=== PATIENT | female | born 1935 | race Caucasian/White ===

== ENCOUNTER 2016-04-17 16:16 | Emergency (ER) | payer MEDICARE, OTHER ==
[~2016-04-17 16:16] MED LIST: CIPR-9 PO; ENAL20TA PO; HYDR25TA5 PO; MACR100C2 PO; SULI200T PO
[2016-04-17 16:20] VITALS: BP 173/81; PULSE 76; RESP 20; TEMP 97.6; O2SAT 96
== END 2016-04-17 17:45 | disposition left against medical advice (07) ==
LOC: NED 16:16
DX: Z53.21 Procedure and treatment not carried out due to patient leaving prior to being seen by health care provider (principal)
CPT/HCPCS: 99281

== ENCOUNTER 2016-04-19 09:14 | Emergency (ER) | payer MEDICARE, MEDICAID ==
[~2016-04-19] VITALS: Ht 157.5 cm; Wt 80.0 kg
[2016-04-19 09:26] VITALS: BP 144/77; PULSE 74; RESP 14; TEMP 98.9; O2SAT 98
--- NOTE | 2016-04-19 09:33 | PD ---
HPI Chief Complaint: Complaint Time Seen by Provider: 09:24 Travel History International Travel<30 days: No Contact w/Intl Traveler<30days: No Traveled to known affect area: No History of Present Illness HPI This is an 81-year-old female who has a history of recurrent urinary tract infections who presents to the emergency department with some dysuria, frequency and urgency, mild, intermittent for the past 2 days with no associated fevers or chills and she does report some intermittent back pain. Patient reports she is going for cataract surgery and wants to make sure she doesn't have a urinary tract infection prior to getting the procedure. PFSH Past Medical History Arthritis: Yes Asthma: No Autoimmune Disease: No Blood Disorders: No Anxiety: No Depression: No Heart Rhythm Problems: No Cancer: Yes (MELANOMA) Cardiac Catheterization: No Cardiovascular Problems: Yes High Cholesterol: No Chemotherapy: No Chest Pain: No Congestive Heart Failure: No COPD: No Cerebrovascular Accident: Yes (TIA X 3) Diabetes: No Diminished Hearing: No Endocrine: No Gastrointestinal Disorders: Yes GERD: Yes Glaucoma: No Genitourinary: Yes (UTI) Headaches: Yes Hepatitis: No Hiatal Hernia: No Hypertension: Yes Immune Disorder: No Implanted Vascular Access Dvce: No Kidney Stones: No Musculoskeletal: Yes (chronic back pain) Neurologic: Yes Psychiatric: No Reproductive: No Respiratory: Yes Immunizations Current: No Migraines: No Myocardial Infarction: No Radiation Therapy: No Renal Failure: No Seizures: No Sickle Cell Disease: No Sleep Apnea: No Thyroid Disease: No Ulcer: No PNEUMOCCOCAL Vaccine (Year): 2 Menopausal: Yes : 7 Para: 4 Tubal Ligation: Yes Past Surgical History Abdominal Surgery: Yes AICD: No Appendectomy: Yes Arteriovenous Shunt: No Cardiac Surgery: No Cholecystectomy: Yes Coronary Artery Bypass Graft: No Ear Surgery: No Endocrine Surgery: No Eye Surgery: No Gynecologic Surgery: Yes Insulin Pump: No Joint Replacement: No Neurologic Surgery: No Pacemaker: No Thoracic Surgery: No Tonsillectomy: Yes Other 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) Social History Alcohol Use: No Tobacco Use: No Substance Use: No Allergies-Medications (Allergen,Severity, Reaction): Coded Allergies: Sulfa (Verified Allergy, Severe, ITCHING, 02/22/16) Cephalexin (Verified Allergy, Unknown, rash, 02/22/16) Reported Meds & Prescriptions Reported Meds & Active Scripts Active Reported Enalapril (Enalapril Maleate) 20 Mg Tab 20 Mg PO DAILY Sulindac 200 Mg Tab 200 Mg PO BID Hydrochlorothiazide 25 Mg Tab 25 Mg PO DAILY Review of Systems Except as stated in HPI: all other systems reviewed are Neg Physical Exam Narrative GENERAL: Well-nourished, well-developed patient. SKIN: Warm and dry. HEAD: Normocephalic. EYES: No scleral icterus. No injection or drainage. NECK: Supple, trachea midline. CARDIOVASCULAR: Regular rate and rhythm without murmurs. RESPIRATORY: Breath sounds equal bilaterally. No accessory muscle use. GASTROINTESTINAL: Abdomen soft, non-tender, nondistended. MUSCULOSKELETAL: No cyanosis, or edema. Data Data Last Documented VS Vital Signs Date Time Temp Pulse Resp B/P Pulse Ox O2 Delivery O2 Flow Rate FiO2 04/19/16 09:26 98.9 74 14 144/77 98 Orders Urinalysis - C+S If Indicated (04/19/16 09:16) Labs Laboratory Tests Test 04/19/16 10:38 Urine Color YELLOW Urine Turbidity CLEAR Urine pH 5.5 Urine Specific [place] 1.019 Urine Protein NEG mg/dL Urine Glucose (UA) NEG mg/dL Urine Ketones NEG mg/dL Urine Occult Blood SMALL Urine Nitrite NEG Urine Bilirubin NEG Urine Urobilinogen LESS THAN 2.0 MG/DL Urine Leukocyte Esterase SMALL Urine RBC 6 /hpf Urine WBC 2 /hpf Urine Squamous Epithelial 2 /hpf Cells Urine Hyaline Casts 1 /lpf Urine Mucus FEW /lpf Microscopic Urinalysis Comment CULT NOT INDICATED MDM Medical Decision Making Medical Screen Exam Complete: Yes Emergency Medical Condition: Yes Interpretation(s) Afebrile, no tachycardia, mild hypertension Urinalysis: Some blood with no infection Differential Diagnosis Urinary tract infection, pyelonephritis, sepsis Narrative Course This is an 81-year-old female who presents to the emergency department with dysuria, frequency and urgency. She has some blood in her urine. She says in the past is been empirically treated for UTI when there is blood in her urine. I think this is reasonable given she is having symptoms. Patient will be discharged on Cipro. Diagnosis Primary Impression: Recurrent urinary tract infection Patient Instructions: General Instructions Additional Instructions: If you develop fever, persistent vomiting, back pain, or inability to eat return to the emergency department as your urine infection may have progressed to a kidney infection. Complete your antibiotics as prescribed. Stay well hydrated with Gatorade or water. Followup with your primary care physician in 2-3 days if your symptoms have not resolved. Med/Other Pt SpecificInfo: Prescription(s) given Scripts Ciprofloxacin 500 Mg [id number] Mg PO BID 7 Days Prov:Dilcia Hopson MD 04/19/16 Disposition: 01 DISCHARGE HOME Condition: Stable Dilcia Hopson MD Apr 19, 2016 09:33
[2016-04-19 11:03] LABS: BLOOD, URINE SMALL (NEG); COMMENT (UR) CULT NOT INDICATED; CULTURE IF INDICATED CULT NOT INDICATED; GLUCOSE,URINE NEG (NEG); HYALINE CAST, URINE 1 /lpf (RARE); KETONE, URINE NEG (NEG); MUCUS URINE FEW /lpf (OCC); NITRITE,URINE NEG (NEG); PH, URINE 5.5 (5.0-8.5); SQUAMOUS EPITHELIAL CELL URINE 2 /hpf (0-5); URINE COLOR YELLOW (YELLW/STRAW)
[2016-04-19] MEDS ORDERED: CIPR500T2 PO (11:17)
== END 2016-04-19 11:48 | disposition home or self-care (01) ==
LOC: NEPE 09:14
DX: N39.0 Urinary tract infection, site not specified (principal); G89.29 Other chronic pain; M54.9 Dorsalgia, unspecified; I10 Essential (primary) hypertension; Z87.440 Personal history of urinary (tract) infections
CPT/HCPCS: 81001; 99283

== ENCOUNTER 2016-05-14 10:57 | Emergency (ER) | payer MEDICARE, MEDICAID, OTHER ==
[~2016-05-14 10:57] MED LIST changes: -CIPR-9 PO; +CIPR500T2 PO; -MACR100C2 PO
[2016-05-14 10:59] VITALS: BP 153/73; PULSE 92; RESP 14; TEMP 97.6; O2SAT 92
--- NOTE | 2016-05-14 11:12 | PD ---
HPI Chief Complaint: Complaint Time Seen by Provider: 11:12 Travel History International Travel<30 days: No Contact w/Intl Traveler<30days: No Traveled to known affect area: No History of Present Illness HPI 81 year old female presents to the ED for evaluation of burning with urination. Pt states she gets frequent UTIs. She states she typically takes cipro and her symptoms go away. She has not followed up with urology and per her record seems to come her frequently with same symptoms. Burning, urgency, and frequency are her symptoms. No fever or chills. No nausea, vomiting, or diarrhea. No other symptoms to report. PFSH Past Medical History Arthritis: Yes Asthma: No Autoimmune Disease: No Blood Disorders: No Anxiety: No Depression: No Heart Rhythm Problems: No Cancer: Yes (MELANOMA) Cardiac Catheterization: No Cardiovascular Problems: Yes High Cholesterol: No Chemotherapy: No Chest Pain: No Congestive Heart Failure: No COPD: No Cerebrovascular Accident: Yes (TIA X 3) Diabetes: No Diminished Hearing: No Endocrine: No Gastrointestinal Disorders: Yes GERD: Yes Glaucoma: No Genitourinary: Yes (UTI) Headaches: Yes Hepatitis: No Hiatal Hernia: No Hypertension: Yes Immune Disorder: No Implanted Vascular Access Dvce: No Kidney Stones: No Musculoskeletal: Yes (chronic back pain) Neurologic: Yes Psychiatric: No Reproductive: No Respiratory: Yes Immunizations Current: No Migraines: No Myocardial Infarction: No Radiation Therapy: No Renal Failure: No Seizures: No Sickle Cell Disease: No Sleep Apnea: No Thyroid Disease: No Ulcer: No PNEUMOCCOCAL Vaccine (Year): 2 Menopausal: Yes : 7 Para: 4 Tubal Ligation: Yes Past Surgical History Abdominal Surgery: Yes AICD: No Appendectomy: Yes Arteriovenous Shunt: No Cardiac Surgery: No Cholecystectomy: Yes Coronary Artery Bypass Graft: No Ear Surgery: No Endocrine Surgery: No Eye Surgery: No Gynecologic Surgery: Yes Insulin Pump: No Joint Replacement: No Neurologic Surgery: No Pacemaker: No Thoracic Surgery: No Tonsillectomy: Yes Other 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) Social History Alcohol Use: No Tobacco Use: No Substance Use: No Allergies-Medications (Allergen,Severity, Reaction): Coded Allergies: Sulfa (Verified Allergy, Severe, ITCHING, 05/14/16) Cephalexin (Verified Allergy, Unknown, rash, 05/14/16) Reported Meds & Prescriptions Reported Meds & Active Scripts Active Cipro (Ciprofloxacin HCl) 500 Mg Tab 500 Mg PO BID 5 Days Reported Enalapril (Enalapril Maleate) 20 Mg Tab 20 Mg PO DAILY Sulindac 200 Mg Tab 200 Mg PO BID Hydrochlorothiazide 25 Mg Tab 25 Mg PO DAILY Review of Systems Except as stated in HPI: all other systems reviewed are Neg Physical Exam Narrative GENERAL: Well-nourished elderly female patient, ambulatory and in no acute distress SKIN: Warm and dry. HEAD: Atraumatic. Normocephalic. EYES: Pupils equal and round. No scleral icterus. No injection or drainage. ENT: No nasal bleeding or discharge. Mucous membranes pink and moist. NECK: Trachea midline. No JVD. CARDIOVASCULAR: Elevated rate and rhythm. No murmur appreciated. RESPIRATORY: No accessory muscle use. Clear to auscultation. Breath sounds equal bilaterally. GASTROINTESTINAL: Abdomen soft, non-tender, nondistended. Hepatic and splenic margins not palpable. MUSCULOSKELETAL: No obvious deformities. No clubbing. No cyanosis. No edema. NEUROLOGICAL: Awake and alert. No obvious cranial nerve deficits. Motor grossly within normal limits. Normal speech. PSYCHIATRIC: Appropriate mood and affect; insight and judgment normal. Data Data Last Documented VS Orders Urinalysis - C+S If Indicated (05/14/16 11:05) Urine Culture (05/14/16 11:10) Labs MDM Medical Decision Making Medical Screen Exam Complete: Yes Emergency Medical Condition: Yes Medical Record Reviewed: Yes Differential Diagnosis Recurrent cystitis versus vaginitis versus urethritis versus pyelonephritis versus atrophic vaginitis Narrative Course 81 year-old female presents to emergency department for evaluation of urinary symptoms consistent with recurrent cystitis. Urinalysis is hazy with small blood, large leukocyte esterase, 14 RBC, 6:30 WBC, moderate bacteria. This is improved from previous urinalysis. Patient is requesting Cipro specifically. I 'll place her on a short course of this and encouraged her to follow-up with urology. She agrees to return immediately to the emergency department with any acute worsening of symptoms. Diagnosis Primary Impression: UTI (urinary tract infection) Qualified Code: N30.01 - Acute cystitis with hematuria Referrals: Primary Care Physician Urologist Patient Instructions: General Instructions, Urinary Tract Infection in Women ( [place]) Additional Instructions: Maintain adequate oral hydration Follow-up with her primary care provider You may want to seek urology evaluation for recurrent UTIs Return immediately to the emergency department with any acute worsening of symptoms Med/Other Pt SpecificInfo: Prescription(s) given Scripts Ciprofloxacin (Cipro)500 Mg [id number] Mg PO BID 5 Days Ref 0 Prov:BrianLeela RUSH 05/14/16 Disposition: 01 DISCHARGE HOME Condition: Stable BrianLeela RUSH May 14, 2016 11:12 UTI (urinary tract infection) Qualified Code: N30.01 - Acute cystitis with hematuria Referrals: Primary Care Physician Urologist Patient Instructions: General Instructions, Urinary Tract Infection in Women ( [place]) Additional Instructions: Maintain adequate oral hydration Follow-up with her primary care provider You may want to seek urology evaluation for recurrent UTIs Return immediately to the emergency department with any acute worsening of symptoms Med/Other Pt SpecificInfo: Prescription(s) given Scripts Ciprofloxacin (Cipro)500 Mg [id number] Mg PO BID 5 Days Ref 0 Prov:TorresLeela RUSH 05/14/16 Disposition: 01 DISCHARGE HOME Condition: Stable Leela Torres May 14, 2016 11:12
[2016-05-14 11:32] LABS: BACTERIA, URINE MOD /hpf; BLOOD, URINE SMALL (NEG); GLUCOSE,URINE NEG (NEG); HYALINE CAST, URINE 1 /lpf (RARE); KETONE, URINE NEG (NEG); NITRITE,URINE NEG (NEG); PH, URINE 5.5 (5.0-8.5); SQUAMOUS EPITHELIAL CELL URINE 6 /hpf (0-5); TRANSITIONAL EPI CELLS, URINE 1 /hpf; URINE COLOR YELLOW (YELLW/STRAW)
[2016-05-14 11:34] LABS: COMMENT (UR) CULTURE INDICATED; CULTURE IF INDICATED CULTURE INDICATED
[2016-05-14] MEDS ORDERED: CIPR-9 PO (11:37)
== END 2016-05-14 12:03 | disposition home or self-care (01) ==
LOC: NETRI 10:57
DX: N39.0 Urinary tract infection, site not specified (principal); R39.15 Urgency of urination; I10 Essential (primary) hypertension
CPT/HCPCS: 81001; 87086; 99283

== ENCOUNTER 2016-05-30 09:11 | Emergency (ER) | payer MEDICARE, MEDICAID ==
[~2016-05-30] VITALS: Ht 157.5 cm; Wt 75.0 kg
[~2016-05-30 09:11] MED LIST changes: +CIPR-9 PO; -CIPR500T2 PO
[2016-05-30 09:13] VITALS: BP 159/85; PULSE 66; RESP 20; TEMP 97.7; O2SAT 93
[2016-05-30 10:40] LABS: BACTERIA, URINE OCC /hpf; BLOOD, URINE NEG (NEG); COMMENT (UR) CULT NOT INDICATED; CULTURE IF INDICATED CULT NOT INDICATED; GLUCOSE,URINE NEG (NEG); KETONE, URINE NEG (NEG); MUCUS URINE FEW /lpf (OCC); NITRITE,URINE NEG (NEG); PH, URINE 6.5 (5.0-8.5); SQUAMOUS EPITHELIAL CELL URINE 2 /hpf (0-5); URINE COLOR YELLOW (YELLW/STRAW)
[2016-05-30 11:50] VITALS: BP 143/78; PULSE 82; RESP 16; O2SAT 95
--- NOTE | 2016-05-30 12:07 | PD ---
HPI Chief Complaint: Complaint Time Seen by Provider: 12:01 Travel History International Travel<30 days: No Contact w/Intl Traveler<30days: No Traveled to known affect area: No History of Present Illness HPI Patient is a 81-year-old female with chief complaint of "I have another UTI." She states for one week she has had increased urinary urgency and frequency with intermittent incontinence. She denies hematuria, pyuria, vaginal bleeding or discharge. She has had some chills and very intermittent brief symptoms of nausea without emesis. She is fatigued. She denies fevers. She has chronic back pain and denies any acute worsening. She has had intermittent suprapubic discomfort which is minimal. She denies CVA or flank pain. She denies chest pain, shortness of breath, cough. Occasional loose stool without louise diarrhea or hematochezia. PFSH Past Medical History Arthritis: Yes Asthma: No Autoimmune Disease: No Blood Disorders: No Anxiety: No Depression: No Heart Rhythm Problems: No Cancer: Yes (MELANOMA) Cardiac Catheterization: No Cardiovascular Problems: Yes High Cholesterol: No Chemotherapy: No Chest Pain: No Congestive Heart Failure: No COPD: No Cerebrovascular Accident: Yes (TIA X 3) Diabetes: No Diminished Hearing: No Endocrine: No Gastrointestinal Disorders: Yes GERD: Yes Glaucoma: No Genitourinary: Yes (UTI) Headaches: Yes Hepatitis: No Hiatal Hernia: No Hypertension: Yes Immune Disorder: No Implanted Vascular Access Dvce: No Kidney Stones: No Musculoskeletal: Yes (chronic back pain) Neurologic: Yes Psychiatric: No Reproductive: No Respiratory: Yes Immunizations Current: No Migraines: No Myocardial Infarction: No Radiation Therapy: No Renal Failure: No Seizures: No Sickle Cell Disease: No Sleep Apnea: No Thyroid Disease: No Ulcer: No Tetanus Vaccination: > 5 Years PNEUMOCCOCAL Vaccine (Year): 2 Menopausal: Yes : 7 Para: 4 Tubal Ligation: Yes Past Surgical History Abdominal Surgery: Yes AICD: No Appendectomy: Yes Arteriovenous Shunt: No Cardiac Surgery: No Cholecystectomy: Yes Coronary Artery Bypass Graft: No Ear Surgery: No Endocrine Surgery: No Eye Surgery: No Gynecologic Surgery: Yes Insulin Pump: No Joint Replacement: No Neurologic Surgery: No Pacemaker: No Thoracic Surgery: No Tonsillectomy: Yes Other 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) Social History Alcohol Use: No Tobacco Use: No Substance Use: No Allergies-Medications (Allergen,Severity, Reaction): Coded Allergies: Sulfa (Verified Allergy, Severe, ITCHING, 05/30/16) Cephalexin (Verified Allergy, Unknown, rash, 05/30/16) Reported Meds & Prescriptions Reported Meds & Active Scripts Active Reported Enalapril (Enalapril Maleate) 20 Mg Tab 20 Mg PO DAILY Sulindac 200 Mg Tab 200 Mg PO BID Hydrochlorothiazide 25 Mg Tab 25 Mg PO DAILY Review of Systems Except as stated in HPI: all other systems reviewed are Neg Physical Exam Narrative GENERAL: Well-developed and well-nourished adult female in no acute distress. SKIN: Warm and dry. Good turgor without tenting. HEAD: Normocephalic. 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 EYES: PERRL bilaterally, 5mm. EOMI bilaterally. No injection or icterus present. No proptosis. Lids without edema or erythema. ENT: Buccal mucosa pink and moist. Oropharynx free of erythema, tonsillar hypertrophy, masses, swelling, asymmetry and exudates. Uvula midline and airway patent. NECK: Supple, no meningeal signs. Trachea midline, no JVD. No cervical or facial lymphadenopathy. CARDIOVASCULAR: Regular rate and rhythm without murmurs, rubs, clicks or gallops. Radial and posterior tibial pulses 2+ bilaterally. Trace bilateral pedal edema. RESPIRATORY: Clear to auscultation bilaterally with symmetrical rise and fall, no distress or use of accessory muscles. GASTROINTESTINAL: Non-tender, non-distended. Normal bowel sounds all 4 quadrants. No masses or organomegaly present. MUSCULOSKELETAL: Patient freely moving all four extremities spontaneously. Extremities without clubbing, cyanosis, or edema. No obvious deformities. NEUROLOGIC: CN II-XII grossly intact. Awake and alert. Motor grossly within normal limits. Normal speech. PSYCHIATRIC: Appropriate mood and affect; insight and judgment normal. Data Data Last Documented VS Vital Signs Date Time Temp Pulse Resp B/P Pulse Ox O2 Delivery O2 Flow Rate FiO2 05/30/16 11:50 82 16 143/78 95 05/30/16 09:13 97.7 Room Air Orders Urinalysis - C+S If Indicated (05/30/16 09:32) Labs Laboratory Tests Test 05/30/16 09:46 Urine Color YELLOW Urine Turbidity CLEAR Urine pH 6.5 Urine Specific [place] 1.012 Urine Protein NEG mg/dL Urine Glucose (UA) NEG mg/dL Urine Ketones NEG mg/dL Urine Occult Blood NEG Urine Nitrite NEG Urine Bilirubin NEG Urine Urobilinogen LESS THAN 2.0 MG/DL Urine Leukocyte Esterase SMALL Urine RBC 2 /hpf Urine WBC 3 /hpf Urine Squamous Epithelial 2 /hpf Cells Urine Bacteria OCC /hpf Urine Mucus FEW /lpf Microscopic Urinalysis Comment CULT NOT INDICATED MDM Medical Decision Making Medical Screen Exam Complete: Yes Emergency Medical Condition: Yes Differential Diagnosis Cystitis versus UTI versus pyelonephritis versus vaginitis versus overactive bladder versus occult infection versus diverticulitis Narrative Course Patient is a 81-year-old female presenting with urinary urgency for one week. This is her third visit for a presumptive UTI in the last 6 weeks. At initial visit urine was not overly convincing of UTI however she was given Cipro. She returned several weeks later with an additional UTI she believes and urinalysis at that time was suggestive of infection. She was given another prescription for Cipro. Culture had no growth. After both rounds of Cipro she does report symptoms resolving. She is afebrile and nontoxic-appearing. Urinalysis performed in triage and shows small esterase, occasional bacteria, 2 squamous epithelial cells, 2 rbc's and 3 wbc's. Not indicated for culture. At this time I recommended the patient additional workup as she has presented 3 times with presumptive UTI with no positive cultures and UA today is not strongly suggestive of UTI. Given that her symptoms mostly are increased urgency and occasional incontinence this could be direct marketing representative of overactive bladder and we would be treating inappropriately and causing potential harm with overuse of antibiotics. I discussed this with the patient for 5 minutes and was unable to convince her that without clear signs of a UTI and a urinalysis that is not strongly suggestive of UTI but I do not believe just simply from her an antibiotic to be an appropriate treatment at this time. The patient made it clear that that was all she wished to have, preferably Cipro. The patient declined any additional workup and will follow-up with her PCP Dr. Fritz. I suggested to the patient that I would recommend following up with him today if that is her choice to leave AMA and she did sign the paperwork. I explained to the patient that failure to undergo workup for her intermittent nausea and chills the result and permanent disability and and she is not sure understanding. She is capable of making this decision. I further recommended that she asked for a referral to a urologist for further evaluation. Diagnosis Primary Impression: Urinary urgency Additional Impression: Left against medical advice Condition: Stable Raffy Fry III May 30, 2016 12:07
== END 2016-05-30 12:09 | disposition left against medical advice (07) ==
LOC: NETRI 09:11
DX: R39.15 Urgency of urination (principal)
CPT/HCPCS: 81001; 99283

== ENCOUNTER 2016-06-11 06:02 | Emergency (ER) | payer MEDICARE, MEDICAID ==
[~2016-06-11] VITALS: Ht 157.5 cm; Wt 87.7 kg
[~2016-06-11 06:02] MED LIST changes: -CIPR-9 PO
[2016-06-11 06:07] VITALS: BP 164/88; PULSE 64; RESP 16; TEMP 97.5; O2SAT 95
--- NOTE | 2016-06-11 06:45 | PD ---
HPI Chief Complaint: Complaint Time Seen by Provider: 06:20 Travel History International Travel<30 days: No Contact w/Intl Traveler<30days: No Traveled to known affect area: No History of Present Illness HPI The patient is an 81 year old female who presents to the [facility] emergency department with a history of dysuria with urinary frequency and urgency that began approximately a week ago. She reports that she's had associated generalized weakness and nausea. She reports that she's had loose stools one time per day. She denies having any blood in her stool or black or tarry stools. She reports that she has had increased fatigue. She reports having chills but no fever. The patient reports that she is concerned that she has a urinary tract infection as her symptoms are similar to prior urinary tract infections. She reports that she has a frequent history of them. She reports that was the only medications that she tolerates well for UTI is Cipro. The patient denies any recent cough or congestion, neck pain, chest pain, shortness of breath, abdominal pain, vomiting, diarrhea, or neurologic symptoms. 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 Arthritis: Yes Asthma: No Autoimmune Disease: No Blood Disorders: No Anxiety: No Depression: No Heart Rhythm Problems: No Cancer: Yes (MELANOMA) Cardiac Catheterization: No Cardiovascular Problems: Yes (HTN) High Cholesterol: No Chemotherapy: No Chest Pain: No Congestive Heart Failure: No COPD: No Cerebrovascular Accident: Yes Diabetes: No Diminished Hearing: No Endocrine: No Gastrointestinal Disorders: Yes GERD: Yes Glaucoma: No Genitourinary: Yes (UTI) Headaches: Yes Hepatitis: No Hiatal Hernia: No Hypertension: Yes Immune Disorder: No Implanted Vascular Access Dvce: No Kidney Stones: No Musculoskeletal: Yes (chronic back pain) Neurologic: Yes Psychiatric: No Reproductive: No Respiratory: Yes Immunizations Current: No Migraines: No Myocardial Infarction: No Radiation Therapy: No Renal Failure: No Seizures: No Sickle Cell Disease: No Sleep Apnea: No Thyroid Disease: No Ulcer: No PNEUMOCCOCAL Vaccine (Year): 2 ?: Not Menopausal: Yes : 7 Para: 4 Tubal Ligation: Yes Past Surgical History Narrative Surgical The patient's past surgical history is significant for an appendectomy, bilateral tubal ligation, left jaw surgery related to osteomyelitis, cholecystectomy, tonsillectomy. Abdominal Surgery: Yes AICD: No Appendectomy: Yes Arteriovenous Shunt: No Cardiac Surgery: No Cholecystectomy: Yes Coronary Artery Bypass Graft: No Ear Surgery: No Endocrine Surgery: No Eye Surgery: No Gynecologic Surgery: Yes Insulin Pump: No Joint Replacement: No Neurologic Surgery: No Pacemaker: No Thoracic Surgery: No Tonsillectomy: Yes Other 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) Social History Alcohol Use: No Tobacco Use: No Substance Use: No Allergies-Medications (Allergen,Severity, Reaction): Coded Allergies: Sulfa (Verified Allergy, Severe, ITCHING, 06/11/16) Cephalexin (Verified Allergy, Unknown, rash, 06/11/16) Reported Meds & Prescriptions Reported Meds & Active Scripts Active Reported Enalapril (Enalapril Maleate) 20 Mg Tab 20 Mg PO DAILY Sulindac 200 Mg Tab 200 Mg PO BID Hydrochlorothiazide 25 Mg Tab 25 Mg PO DAILY Review of Systems Except as stated in HPI: all other systems reviewed are Neg General / Constitutional: Positive: Chills, No: Fever Eyes: No: Visual changes HENT: No: Headaches Cardiovascular: No: Chest Pain or Discomfort Respiratory: No: Shortness of Breath Gastrointestinal: Positive: Nausea, Changes in Bowel Habits (one loose stool per day), No: Vomiting, Diarrhea, Abdominal Pain, Indigestion, Loss of Appetite Genitourinary: Positive: Urgency, Frequency, Dysuria, No: Flank Pain Musculoskeletal: Positive: Myalgias, No: Pain Skin: No Rash Neurologic: Positive: Weakness (generalized weakness), No: Focal Abnormalities , Coordination Problem, Change in Mentation, Slurred Speech, Sensory Disturbance Psychiatric: No: Depression Endocrine: No: Polydipsia Hematologic/Lymphatic: No: Easy Bruising Physical Exam Narrative General: The patient is a well-developed well-nourished female in no acute distress. Head and Neck exam: Head is normocephalic atraumatic. Eyes: Pupils are equal round and reactive to light. Nose: Midline septum with pink mucous membranes Mouth: Dentition unremarkable. Moist mucus membranes. Posterior oropharynx is not erythematous. No tonsillar hypertrophy. Uvula midline. Airway patent. Neck: No palpable lymphadenopathy. No nuchal rigidity. No thyromegaly. Cardiovascular: Regular rate and rhythm without murmurs, gallops, or rubs. Lungs: Clear to auscultation bilaterally. No wheezes, rhonchi, or rales. Abdomen: Soft, without tenderness to palpation in all 4 quadrants of the abdomen. No guarding, rebound, or rigidity. Normal bowel sounds are audible. Extremities: No clubbing, cyanosis, or edema. No calf tenderness on palpation. Back: No spinous process tenderness to palpation. No costovertebral angle tenderness to palpation. Neurologic Exam: Grossly nonfocal. Skin Exam: No rash noted. Intact skin that is warm and dry. Data Data Last Documented VS Vital Signs Date Time Temp Pulse Resp B/P Pulse Ox O2 Delivery O2 Flow Rate FiO2 06/11/16 06:18 18 06/11/16 06:07 97.5 64 164/88 95 Room Air Orders Urinalysis - C+S If Indicated (06/11/16 06:22) MDM Medical Decision Making Medical Screen Exam Complete: Yes Emergency Medical Condition: Yes Medical Record Reviewed: Yes Differential Diagnosis Cystitis, versus pyelonephritis, versus viral syndrome Narrative Course During the course of the patients emergency department visit, the patients history, examination, and differential diagnosis were reviewed with the patient. The patient refused to get in a gown for examination. She reports that she does not want any blood work done at this time. She is only concerned that she may have a urinary tract infection as she has had infrequently in the past. The patient had a urine sent for analysis. The patients urinalysis is pending result. The patient's case was checked out to the oncoming emergency physician to disposition based on the conclusion of her urinalysis results. Diagnosis Primary Impression: Urinary frequency Araceli Aragon MD Jun 11, 2016 06:45 discharge instructions. The patient expressed understanding and was agreeable with this plan. Araceli Aragon MD Jun 11, 2016 06:45
[2016-06-11 07:58] LABS: BACTERIA, URINE RARE /hpf; BLOOD, URINE TRACE (NEG); COMMENT (UR) CULT NOT INDICATED; CULTURE IF INDICATED CULT NOT INDICATED; GLUCOSE,URINE NEG (NEG); KETONE, URINE NEG (NEG); NITRITE,URINE NEG (NEG); SQUAMOUS EPITHELIAL CELL URINE 2 /hpf (0-5); URINE COLOR YELLOW (YELLW/STRAW)
--- NOTE | 2016-06-11 08:06 | PD ---
Data Data Last Documented VS Vital Signs Date Time Temp Pulse Resp B/P Pulse Ox O2 Delivery O2 Flow Rate FiO2 06/11/16 06:18 18 06/11/16 06:07 97.5 64 164/88 95 Room Air Orders Urinalysis - C+S If Indicated (06/11/16 06:22) Urine Culture (06/11/16 08:02) Labs Laboratory Tests Test 06/11/16 07:30 Urine Color YELLOW Urine Turbidity CLEAR Urine pH 6.0 Urine Specific [place] 1.013 Urine Protein NEG mg/dL Urine Glucose (UA) NEG mg/dL Urine Ketones NEG mg/dL Urine Occult Blood TRACE Urine Nitrite NEG Urine Bilirubin NEG Urine Urobilinogen LESS THAN 2.0 MG/DL Urine Leukocyte Esterase MOD Urine RBC 3 /hpf Urine WBC 3 /hpf Urine Squamous Epithelial 2 /hpf Cells Urine Bacteria RARE /hpf Microscopic Urinalysis Comment CULT NOT INDICATED MDM Supervised Visit with GARRY: No Narrative Course C1-year-old woman who presents to the emergency department with UTI symptoms. Refusing any other evaluation. History of frequent UTIs in the past. Urinalysis does not show any pyuria or bacteriuria, or hematuria. Given her suggestive symptoms, urine culture was sent as well. We'll recommend treatment if positive, otherwise different antibiotics. Diagnosis Primary Impression: Urinary frequency Additional Instruction: Follow-up with your primary doctor. Return to the emergency department for any new or worsening symptoms. If urine culture shows any infection, we will contact you and call in a prescription for antibiotics. Med/Other Pt SpecificInfo: No Change to Meds Disposition: 01 DISCHARGE HOME Condition: Stable Levi Sanderson MD Jun 11, 2016 08:06
== END 2016-06-11 08:44 | disposition home or self-care (01) ==
LOC: NEPC 06:02
DX: R35.0 Frequency of micturition (principal)
CPT/HCPCS: 81001; 87086; 99284

== ENCOUNTER 2016-06-19 06:29 | Emergency (ER) | payer MEDICARE, MEDICAID ==
[~2016-06-19] VITALS: Ht 160 cm; Wt 88.0 kg
[2016-06-19 06:32] VITALS: BP 156/80; PULSE 70; RESP 18; TEMP 97.5; O2SAT 95
--- NOTE | 2016-06-19 07:11 | PD ---
HPI Chief Complaint: Complaint Time Seen by Provider: 07:11 Travel History International Travel<30 days: No Contact w/Intl Traveler<30days: No Traveled to known affect area: No History of Present Illness HPI 81-year-old female came to the emergency room with history of UTI symptoms. She says her lower back is hurting and she feels more tired and this is exactly how she feels when she gets UTI. Patient has been in the emergency room multiple times in the past with UTI and insist on getting ciprofloxacin for it. Says that the medication that works. One time she had Macrobid and it did not do anything. She went to see her primary care 2 days ago but she did not have symptoms at that time. Her primary care refused history of antibiotic over the phone. Vital signs are stable. Patient is answering questions appropriately. [facility] Past Medical History Narrative Medical List of her past medical, surgical, social and family history is reviewed from the nursing note. Arthritis: Yes Asthma: No Autoimmune Disease: No Blood Disorders: No Anxiety: No Depression: No Heart Rhythm Problems: No Cancer: Yes (MELANOMA) Cardiac Catheterization: No Cardiovascular Problems: Yes (HTN) High Cholesterol: No Chemotherapy: No Chest Pain: No Congestive Heart Failure: No COPD: No Cerebrovascular Accident: Yes Diabetes: No Diminished Hearing: No Endocrine: No Gastrointestinal Disorders: Yes GERD: Yes Glaucoma: No Genitourinary: Yes (UTI) Headaches: Yes Hepatitis: No Hiatal Hernia: No Hypertension: Yes Immune Disorder: No Implanted Vascular Access Dvce: No Kidney Stones: No Musculoskeletal: Yes (chronic back pain) Neurologic: Yes Psychiatric: No Reproductive: No Respiratory: Yes Immunizations Current: No Migraines: No Myocardial Infarction: No Radiation Therapy: No Renal Failure: No Seizures: No Sickle Cell Disease: No Sleep Apnea: No Thyroid Disease: No Ulcer: No PNEUMOCCOCAL Vaccine (Year): 2 Menopausal: Yes : 7 Para: 4 Tubal Ligation: Yes Past Surgical History Abdominal Surgery: Yes AICD: No Appendectomy: Yes Arteriovenous Shunt: No Cardiac Surgery: No Cholecystectomy: Yes Coronary Artery Bypass Graft: No Ear Surgery: No Endocrine Surgery: No Eye Surgery: No Gynecologic Surgery: Yes Insulin Pump: No Joint Replacement: No Neurologic Surgery: No Pacemaker: No Thoracic Surgery: No Tonsillectomy: Yes Other 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) Social History Alcohol Use: No Tobacco Use: No Substance Use: No Allergies-Medications (Allergen,Severity, Reaction): Coded Allergies: Sulfa (Verified Allergy, Severe, ITCHING, 06/19/16) Cephalexin (Verified Allergy, Unknown, rash, 06/11/16) Comments List of allergies reviewed from the nursing note. Reported Meds & Prescriptions Reported Meds & Active Scripts Active Ciprofloxacin (Ciprofloxacin HCl) 500 Mg Tab 500 Mg PO BID 7 Days Reported Enalapril (Enalapril Maleate) 20 Mg Tab 20 Mg PO DAILY Sulindac 200 Mg Tab 200 Mg PO BID Hydrochlorothiazide 25 Mg Tab 25 Mg PO DAILY Narrative Medication List of her home medications reviewed from the nursing note. Review of Systems Except as stated in HPI: all other systems reviewed are Neg Physical Exam Narrative GENERAL: Awake, alert, elderly, no obvious distress SKIN: Warm and dry. HEAD: Atraumatic. Normocephalic. EYES: Pupils equal and round. No scleral icterus. No injection or drainage. ENT: No nasal bleeding or discharge. Mucous membranes pink and moist. NECK: Trachea midline. No JVD. CARDIOVASCULAR: Regular rate and rhythm. No murmur appreciated. RESPIRATORY: No accessory muscle use. Clear to auscultation. Breath sounds equal bilaterally. GASTROINTESTINAL: Abdomen soft, non-tender, nondistended. Hepatic and splenic margins not palpable. MUSCULOSKELETAL: No obvious deformities. No clubbing. No cyanosis. No edema. NEUROLOGICAL: Awake and alert. No obvious cranial nerve deficits. Motor grossly within normal limits. Normal speech. PSYCHIATRIC: Appropriate mood and affect; insight and judgment normal. Data Data Last Documented VS Vital Signs Date Time Temp Pulse Resp B/P Pulse Ox O2 Delivery O2 Flow Rate FiO2 06/19/16 06:32 97.5 70 18 156/80 95 Orders Urinalysis - C+S If Indicated (06/19/16 06:38) Urine Culture (06/19/16 06:35) Nitrofurantoin Monohyd Macrocr (Macrobid (06/19/16 07:30) Ciprofloxacin (Cipro) (06/19/16 07:45) Labs Laboratory Tests Test 06/19/16 06:35 Urine Color YELLOW Urine Turbidity CLEAR Urine pH 5.5 Urine Specific [place] 1.016 Urine Protein NEG mg/dL Urine Glucose (UA) NEG mg/dL Urine Ketones NEG mg/dL Urine Occult Blood NEG Urine Nitrite NEG Urine Bilirubin NEG Urine Urobilinogen LESS THAN 2.0 MG/DL Urine Leukocyte Esterase SMALL Urine WBC 3 /hpf Urine Squamous Epithelial 1 /hpf Cells Urine Bacteria OCC /hpf Urine Hyaline Casts 1 /lpf Urine Mucus FEW /lpf Microscopic Urinalysis Comment CATH-CULTURE IND MDM Medical Decision Making Medical Screen Exam Complete: Yes Emergency Medical Condition: Yes Medical Record Reviewed: Yes Differential Diagnosis Acute and chronic UTI Narrative Course 7:36 AM patient was given a dose of ciprofloxacin and discharged home on prescription. I have encouraged her to follow up with her primary care for UTI symptoms in future. Procedures EKG Prior to Arrival: No Diagnosis Primary Impression: UTI (urinary tract infection) Qualified Code: N39.0 - Urinary tract infection without hematuria, site unspecified Referrals: Primary Care Physician Additional Instructions: Take prescription as per the direction. Follow up with a primary care. Med/Other Pt SpecificInfo: Prescription(s) given Scripts Ciprofloxacin 500 Mg [id number] Mg PO BID 7 Days Ref 0 Prov:Melly Craig MD 06/19/16 Disposition: DISCHARGE HOME Condition: Stable Melly Craig MD Jun 19, 2016 07:11
[2016-06-19 07:16] LABS: BACTERIA, URINE OCC /hpf; BLOOD, URINE NEG (NEG); GLUCOSE,URINE NEG (NEG); HYALINE CAST, URINE 1 /lpf (RARE); KETONE, URINE NEG (NEG); MUCUS URINE FEW /lpf (OCC); NITRITE,URINE NEG (NEG); PH, URINE 5.5 (5.0-8.5); SQUAMOUS EPITHELIAL CELL URINE 1 /hpf (0-5); URINE COLOR YELLOW (YELLW/STRAW)
[2016-06-19 07:17] LABS: COMMENT (UR) CATH-CULTURE IND; CULTURE IF INDICATED CATH CULTURE IND
[2016-06-19] MEDS ORDERED: NITROFURANTOIN MONOHYD MACROCR 100 MG CAP PO ONE (07:30)
[2016-06-19] MEDS ORDERED: CIPR500T2 PO (07:34)
[2016-06-19] MEDS ORDERED: CIPROFLOXACIN 500 MG TAB PO ONE (07:45)
== END 2016-06-19 10:18 | disposition home or self-care (01) ==
LOC: NEPE 06:29
DX: N39.0 Urinary tract infection, site not specified (principal); I10 Essential (primary) hypertension; B96.89 Other specified bacterial agents as the cause of diseases classified elsewhere
CPT/HCPCS: 81001; 87077; 87086; 87186; 99283

== ENCOUNTER 2016-07-12 06:24 | Emergency (ER) | payer MEDICARE, MEDICAID ==
[~2016-07-12] VITALS: Ht 157.5 cm; Wt 85.0 kg
[~2016-07-12 06:24] MED LIST changes: +CIPR500T2 PO
[2016-07-12 06:26] VITALS: BP 167/82; PULSE 78; RESP 18; TEMP 97.6; O2SAT 95
--- NOTE | 2016-07-12 06:36 | PD ---
Physical Exam Date Seen by Provider: Jul 12, 2016 Time Seen by Provider: 06:28 Narrative pt seen in triage. pt with 1 week h/o weakness, general malaise,dysuria,freq, urgency and now back pain. positive chills and nausea but no fever, abdominal pain vitals stable. pt waiting for bed placement. Data Data Last Documented VS Vital Signs Date Time Temp Pulse Resp B/P Pulse Ox O2 Delivery O2 Flow Rate FiO2 07/12/16 06:26 97.6 78 18 167/82 95 Room Air [facility] Medical Record Reviewed: Yes Supervised Visit with GARRY: Yes Constantino Wick Jul 12, 2016 06:36
--- NOTE | 2016-07-12 07:12 | PD ---
HPI Chief Complaint: Complaint Time Seen by Provider: 07:10 Travel History International Travel<30 days: No Contact w/Intl Traveler<30days: No Traveled to known affect area: No History of Present Illness HPI 81-year-old female came to the emergency room with history of urinary tract symptoms. Patient has been in this emergency room numerous times before. In fact the last time when she was here I had seen her. She always insists on going home on ciprofloxacin. I looked at her urine culture results from last time and it grew Enterococcus faecalis which was resistant to Cipro. It is sensitive to Macrobid however. Patient says she has some chills but no nausea vomiting. Vital signs are relatively stable. [facility] Past Medical History Narrative Medical List of her past medical, surgical, social and family history was reviewed from the nursing note. Arthritis: Yes Asthma: No Autoimmune Disease: No Blood Disorders: No Anxiety: No Depression: No Heart Rhythm Problems: No Cancer: Yes (MELANOMA) Cardiac Catheterization: No Cardiovascular Problems: Yes (HTN) High Cholesterol: No Chemotherapy: No Chest Pain: No Congestive Heart Failure: No COPD: No Cerebrovascular Accident: Yes Diabetes: No Diminished Hearing: No Endocrine: No Gastrointestinal Disorders: Yes GERD: Yes Glaucoma: No Genitourinary: Yes (UTI) Headaches: Yes Hepatitis: No Hiatal Hernia: No Hypertension: Yes Immune Disorder: No Implanted Vascular Access Dvce: No Kidney Stones: No Musculoskeletal: Yes (chronic back pain) Neurologic: Yes Psychiatric: No Reproductive: No Respiratory: Yes Immunizations Current: No Migraines: No Myocardial Infarction: No Radiation Therapy: No Renal Failure: No Seizures: No Sickle Cell Disease: No Sleep Apnea: No Thyroid Disease: No Ulcer: No PNEUMOCCOCAL Vaccine (Year): 2 ?: Not Menopausal: Yes : 7 Para: 4 Tubal Ligation: Yes Past Surgical History Abdominal Surgery: Yes AICD: No Appendectomy: Yes Arteriovenous Shunt: No Cardiac Surgery: No Cholecystectomy: Yes Coronary Artery Bypass Graft: No Ear Surgery: No Endocrine Surgery: No Eye Surgery: No Gynecologic Surgery: Yes Insulin Pump: No Joint Replacement: No Neurologic Surgery: No Pacemaker: No Thoracic Surgery: No Tonsillectomy: Yes Other 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) Social History Alcohol Use: No Tobacco Use: No Substance Use: No Allergies-Medications (Allergen,Severity, Reaction): Coded Allergies: Sulfa (Verified Allergy, Severe, ITCHING, 07/12/16) Cephalexin (Verified Allergy, Unknown, rash, 07/12/16) Comments List of her allergies reviewed from the nursing note. Reported Meds & Prescriptions Reported Meds & Active Scripts Active Macrobid (Nitrofurantoin Monoh/Nitrofur Macro) 100 Mg Cap 100 Mg PO BID 10 Days Reported Enalapril (Enalapril Maleate) 20 Mg Tab 20 Mg PO DAILY Sulindac 200 Mg Tab 200 Mg PO BID Hydrochlorothiazide 25 Mg Tab 25 Mg PO DAILY Narrative Medication List of her home medications reviewed from the nursing note. Review of Systems Except as stated in HPI: all other systems reviewed are Neg Physical Exam Narrative GENERAL: Awake, alert, no obvious distress SKIN: Focused skin assessment warm/dry. HEAD: Atraumatic. Normocephalic. EYES: Pupils equal and round. No scleral icterus. No injection or drainage. ENT: No nasal bleeding or discharge. Mucous membranes pink and moist. NECK: Trachea midline. No JVD. CARDIOVASCULAR: Regular rate and rhythm. No murmur appreciated. RESPIRATORY: No accessory muscle use. Clear to auscultation. Breath sounds equal bilaterally. GASTROINTESTINAL: Abdomen soft, non-tender, nondistended. Hepatic and splenic margins not palpable. MUSCULOSKELETAL: No obvious deformities. No clubbing. No cyanosis. No edema. NEUROLOGICAL: Awake and alert. No obvious cranial nerve deficits. Motor grossly within normal limits. Normal speech. PSYCHIATRIC: Appropriate mood and affect; insight and judgment normal. Data Data Last Documented VS Vital Signs Date Time Temp Pulse Resp B/P Pulse Ox O2 Delivery O2 Flow Rate FiO2 07/12/16 06:26 97.6 78 18 167/82 95 Room Air Orders Urine Culture (07/12/16 06:44) Urinalysis - C+S If Indicated (07/12/16 07:01) Nitrofurantoin Monohyd Macrocr (Macrobid (07/12/16 07:15) Labs Laboratory Tests Test 07/12/16 06:40 Urine Color YELLOW Urine Turbidity CLEAR Urine pH 5.0 Urine Specific [place] 1.017 Urine Protein NEG mg/dL Urine Glucose (UA) NEG mg/dL Urine Ketones NEG mg/dL Urine Occult Blood NEG Urine Nitrite NEG Urine Bilirubin NEG Urine Urobilinogen LESS THAN 2.0 MG/DL Urine Leukocyte Esterase TRACE Urine RBC 6 /hpf Urine WBC 2 /hpf Urine Squamous Epithelial <1 /hpf Cells Urine Mucus FEW /lpf Microscopic Urinalysis Comment CULT NOT INDICATED MDM Medical Decision Making Medical Screen Exam Complete: Yes Emergency Medical Condition: Yes Medical Record Reviewed: Yes Differential Diagnosis UTI, untreated UTI Narrative Course 7:20 AM of given the patient a dose of Macrobid. She'll be discharged home on Macrobid. Procedures EKG Prior to Arrival: No Diagnosis Primary Impression: UTI (urinary tract infection) Qualified Code: N39.0 - Urinary tract infection without hematuria, site unspecified Additional Impression: untreated UTI Referrals: Primary Care Physician 3 days Additional Instructions: Please take this new antibiotic and stop taking ciprofloxacin from your old prescription. Please return to the ER if the condition worsens or any other new concerns. Otherwise follow-up with her primary care. Med/Other Pt SpecificInfo: Prescription(s) given Scripts Nitrofurantoin Monohydrate Macrocrystals (Macrobid)100 Mg [id number] Mg PO BID 10 Days Ref 0 Prov:Melly Craig MD 07/12/16 Disposition: 01 DISCHARGE HOME Condition: Stable Melly Craig MD Jul 12, 2016 07:12
[2016-07-12] MEDS ORDERED: NITROFURANTOIN MONOHYD MACROCR 100 MG CAP PO ONE (07:15)
[2016-07-12] MEDS ORDERED: MACR100C2 PO (07:21)
[2016-07-12 07:34] LABS: BLOOD, URINE NEG (NEG); COMMENT (UR) CULT NOT INDICATED; CULTURE IF INDICATED CULT NOT INDICATED; GLUCOSE,URINE NEG (NEG); KETONE, URINE NEG (NEG); MUCUS URINE FEW /lpf (OCC); NITRITE,URINE NEG (NEG); SQUAMOUS EPITHELIAL CELL URINE <1 /hpf (0-5); URINE COLOR YELLOW (YELLW/STRAW)
== END 2016-07-12 08:19 | disposition home or self-care (01) ==
LOC: NEPC 06:24
DX: N39.0 Urinary tract infection, site not specified (principal); I10 Essential (primary) hypertension
CPT/HCPCS: 81001; 87086; 99283

== ENCOUNTER 2016-08-15 06:17 | Emergency (ER) | payer MEDICARE, MEDICAID, OTHER ==
[~2016-08-15] VITALS: Ht 157.5 cm; Wt 88.0 kg
[~2016-08-15 06:17] MED LIST changes: -CIPR500T2 PO; +MACR100C2 PO
[2016-08-15 06:31] VITALS: BP 133/67; PULSE 67; RESP 15; TEMP 97.8; O2SAT 97
--- NOTE | 2016-08-15 07:05 | PD ---
HPI Chief Complaint: Complaint Time Seen by Provider: 07:05 Travel History International Travel<30 days: No Contact w/Intl Traveler<30days: No Traveled to known affect area: No History of Present Illness HPI 81-year-old female complains of urinary frequency and dysuria and generalized malaise. Patient states that the symptoms started a week ago. Patient denies any headache. Patient denies any chest pain or shortness of breath. Patient denies abdominal pain. Patient denies any back pain. Patient denies any focal weakness or numbness of extremity. Patient states that she has occasional chills but no fever. Patient has history of recurrent UTI. Patient states that Cipro worked best for her with UTI. PFSH Past Medical History Arthritis: Yes Asthma: No Autoimmune Disease: No Blood Disorders: No Anxiety: No Depression: No Heart Rhythm Problems: No Cancer: Yes (MELANOMA) Cardiac Catheterization: No Cardiovascular Problems: Yes (HTN) High Cholesterol: No Chemotherapy: No Chest Pain: No Congestive Heart Failure: No COPD: No Cerebrovascular Accident: Yes Diabetes: No Diminished Hearing: No Endocrine: No Gastrointestinal Disorders: Yes GERD: Yes Glaucoma: No Genitourinary: Yes (UTI) Headaches: Yes Hepatitis: No Hiatal Hernia: No Hypertension: Yes Immune Disorder: No Implanted Vascular Access Dvce: No Kidney Stones: No Musculoskeletal: Yes (chronic back pain) Neurologic: Yes Psychiatric: No Reproductive: No Respiratory: Yes Immunizations Current: No Migraines: No Myocardial Infarction: No Radiation Therapy: No Renal Failure: No Seizures: No Sickle Cell Disease: No Sleep Apnea: No Thyroid Disease: No Ulcer: No PNEUMOCCOCAL Vaccine (Year): 2 Menopausal: Yes : 7 Para: 4 Tubal Ligation: Yes Past Surgical History Abdominal Surgery: Yes AICD: No Appendectomy: Yes Arteriovenous Shunt: No Cardiac Surgery: No Cholecystectomy: Yes Coronary Artery Bypass Graft: No Ear Surgery: No Endocrine Surgery: No Eye Surgery: No Gynecologic Surgery: Yes Insulin Pump: No Joint Replacement: No Neurologic Surgery: No Pacemaker: No Thoracic Surgery: No Tonsillectomy: Yes Other 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) Social History Alcohol Use: No Tobacco Use: No Substance Use: No Allergies-Medications (Allergen,Severity, Reaction): Coded Allergies: Sulfa (Verified Allergy, Severe, ITCHING, 08/15/16) Cephalexin (Verified Allergy, Unknown, rash, 08/15/16) Reported Meds & Prescriptions Reported Meds & Active Scripts Active Reported Enalapril (Enalapril Maleate) 20 Mg Tab 20 Mg PO DAILY Hydrochlorothiazide 25 Mg Tab 25 Mg PO DAILY Review of Systems General / Constitutional: No: Fever Eyes: No: Visual changes HENT: No: Headaches Cardiovascular: No: Chest Pain or Discomfort Respiratory: No: Shortness of Breath Gastrointestinal: No: Abdominal Pain Genitourinary: Positive: Frequency, Dysuria Musculoskeletal: No: Pain Skin: No Rash Neurologic: No: Weakness Psychiatric: No: Depression Endocrine: No: Polydipsia Hematologic/Lymphatic: No: Easy Bruising Physical Exam Narrative GENERAL: Well-nourished, well-developed patient. SKIN: Focused skin assessment warm/dry. HEAD: Normocephalic. EYES: No scleral icterus. No injection or drainage. NECK: Supple, trachea midline. No JVD or lymphadenopathy. CARDIOVASCULAR: Regular rate and rhythm without murmurs, gallops, or rubs. RESPIRATORY: Breath sounds equal bilaterally. No accessory muscle use. GASTROINTESTINAL: Abdomen soft, non-tender, nondistended. MUSCULOSKELETAL: No cyanosis, or edema. BACK: Nontender without obvious deformity. No CVA tenderness. Neurologic exam normal. Data Data Last Documented VS Vital Signs Date Time Temp Pulse Resp B/P Pulse Ox O2 Delivery O2 Flow Rate FiO2 08/15/16 06:31 97.8 67 15 133/67 97 Room Air Orders Urinalysis - C+S If Indicated (08/15/16 06:59) Urine Culture (08/15/16 07:30) Labs Laboratory Tests Test 08/15/16 07:30 Urine Color YELLOW Urine Turbidity CLEAR Urine pH 5.0 Urine Specific [place] 1.020 Urine Protein NEG mg/dL Urine Glucose (UA) NEG mg/dL Urine Ketones NEG mg/dL Urine Occult Blood SMALL Urine Nitrite NEG Urine Bilirubin NEG Urine Urobilinogen LESS THAN 2.0 MG/DL Urine Leukocyte Esterase LARGE Urine RBC 2 /hpf Urine WBC 14 /hpf Urine WBC Clumps RARE Urine Squamous Epithelial 5 /hpf Cells Urine Bacteria OCC /hpf Urine Mucus FEW /lpf Microscopic Urinalysis Comment CULTURE INDICATED MDM Medical Decision Making Medical Screen Exam Complete: Yes Emergency Medical Condition: Yes Medical Record Reviewed: Yes Interpretation(s) 9:05 AM. UA positive WBC and bacteria. Differential Diagnosis Differential diagnosis including urethritis, UTI, pyelonephritis, nephrolithiasis. Narrative Course 81-year-old female with dysuria and frequency. Diagnosis Primary Impression: UTI (urinary tract infection) Qualified Code: N30.00 - Acute cystitis without hematuria Patient Instructions: General Instructions Additional Instructions: Cipro as directed. Follow-up with personal physician. Return if worse. Med/Other Pt SpecificInfo: Prescription(s) given Scripts Ciprofloxacin (Cipro)500 Mg [id number] Mg PO BID #14 TAB Prov:Kadeem Acuña MD 08/15/16 Disposition: 01 DISCHARGE HOME Condition: Stable Kadeem Acuña MD August 15, 2016 07:05
[2016-08-15 08:17] LABS: BACTERIA, URINE OCC /hpf; BLOOD, URINE SMALL (NEG); GLUCOSE,URINE NEG (NEG); KETONE, URINE NEG (NEG); MUCUS URINE FEW /lpf (OCC); NITRITE,URINE NEG (NEG); SQUAMOUS EPITHELIAL CELL URINE 5 /hpf (0-5); URINE COLOR YELLOW (YELLW/STRAW)
[2016-08-15 08:44] LABS: COMMENT (UR) CULTURE INDICATED; CULTURE IF INDICATED CULTURE INDICATED
[2016-08-15] MEDS ORDERED: CIPR-9 PO (09:06)
== END 2016-08-15 09:54 | disposition home or self-care (01) ==
LOC: NEPE 06:17
DX: N39.0 Urinary tract infection, site not specified (principal); I10 Essential (primary) hypertension; Z86.73 Personal history of transient ischemic attack (TIA), and cerebral infarction without residual deficits
CPT/HCPCS: 81001; 87086; 99283

== ENCOUNTER 2016-09-06 06:25 | Emergency (ER) | payer MEDICARE, OTHER ==
[~2016-09-06] VITALS: Ht 165.1 cm; Wt 78.0 kg
[~2016-09-06 06:25] MED LIST changes: +CIPR-9 PO; -MACR100C2 PO; -SULI200T PO
[2016-09-06 06:27] VITALS: BP 136/77; PULSE 71; RESP 16; TEMP 97.6; O2SAT 95
--- NOTE | 2016-09-06 07:05 | PD ---
HPI Chief Complaint: Complaint Time Seen by Provider: 07:02 Travel History International Travel<30 days: No Contact w/Intl Traveler<30days: No Traveled to known affect area: No History of Present Illness HPI This is an 81-year-old female presents today with complaints of urinary frequency and discomfort. The patient denies any fevers, chills. The patient denies any back pain or flank pain. Patient reports that she gets frequent UTIs. There are no other complaints time my examination. PFSH Past Medical History Arthritis: Yes Asthma: No Autoimmune Disease: No Blood Disorders: No Anxiety: No Depression: No Heart Rhythm Problems: No Cancer: Yes (MELANOMA) Cardiac Catheterization: No Cardiovascular Problems: Yes (HTN) High Cholesterol: No Chemotherapy: No Chest Pain: No Congestive Heart Failure: No COPD: No Cerebrovascular Accident: Yes Diabetes: No Diminished Hearing: No Endocrine: No Gastrointestinal Disorders: Yes GERD: Yes Glaucoma: No Genitourinary: Yes (UTI) Headaches: Yes Hepatitis: No Hiatal Hernia: No Hypertension: Yes Immune Disorder: No Implanted Vascular Access Dvce: No Kidney Stones: No Musculoskeletal: Yes (chronic back pain) Neurologic: Yes Psychiatric: No Reproductive: No Respiratory: Yes Immunizations Current: No Migraines: No Myocardial Infarction: No Radiation Therapy: No Renal Failure: No Seizures: No Sickle Cell Disease: No Sleep Apnea: No Thyroid Disease: No Ulcer: No PNEUMOCCOCAL Vaccine (Year): 2 Menopausal: Yes : 7 Para: 4 Tubal Ligation: Yes Past Surgical History Abdominal Surgery: Yes AICD: No Appendectomy: Yes Arteriovenous Shunt: No Cardiac Surgery: No Cholecystectomy: Yes Coronary Artery Bypass Graft: No Ear Surgery: No Endocrine Surgery: No Eye Surgery: No Gynecologic Surgery: Yes Insulin Pump: No Joint Replacement: No Neurologic Surgery: No Pacemaker: No Thoracic Surgery: No Tonsillectomy: Yes Other 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) Social History Alcohol Use: No Tobacco Use: No Substance Use: No Allergies-Medications (Allergen,Severity, Reaction): Coded Allergies: Sulfa (Verified Allergy, Severe, ITCHING, 09/06/16) Cephalexin (Verified Allergy, Unknown, rash, 09/06/16) Reported Meds & Prescriptions Reported Meds & Active Scripts Active Ciprofloxacin (Ciprofloxacin HCl) 500 Mg Tab 500 Mg PO BID Reported Enalapril (Enalapril Maleate) 20 Mg Tab 20 Mg PO DAILY Hydrochlorothiazide 25 Mg Tab 25 Mg PO DAILY Review of Systems Except as stated in HPI: all other systems reviewed are Neg General / Constitutional: No: Fever, Chills HENT: No: Headaches, Lightheadedness, Neck Pain Cardiovascular: No: Chest Pain or Discomfort, Palpitations Respiratory: No: Cough, Shortness of Breath Gastrointestinal: No: Nausea, Vomiting, Abdominal Pain Genitourinary: Positive: Frequency, Dysuria, No: Incontinence, Flank Pain Musculoskeletal: No: Weakness, Pain Neurologic: No: Weakness, Dizziness Physical Exam Narrative GENERAL: Well-nourished, well-developed patient. SKIN: Focused skin assessment warm/dry. HEAD: Normocephalic/atraumatic. EYES: No scleral icterus. No injection or drainage. NECK: Supple, trachea midline. No JVD or lymphadenopathy. CARDIOVASCULAR: Regular rate and rhythm without murmurs, gallops, or rubs. RESPIRATORY: Breath sounds equal bilaterally. No accessory muscle use. GASTROINTESTINAL: Abdomen soft, non-tender, nondistended. BACK: Nontender without obvious deformity. No CVA tenderness. NEUROLOGICAL: Awake and alert. Cranial nerves II through XII intact. Motor grossly within normal limits. Five out of 5 muscle strength in all muscle groups. Normal speech. Data Data Last Documented VS Vital Signs Date Time Temp Pulse Resp B/P Pulse Ox O2 Delivery O2 Flow Rate FiO2 09/06/16 06:45 18 09/06/16 06:27 97.6 71 136/77 95 Room Air Orders Urinalysis - C+S If Indicated (09/06/16 06:43) Labs Laboratory Tests Test 09/06/16 06:45 Urine Color YELLOW Urine Turbidity CLEAR Urine pH 5.5 Urine Specific [place] 1.019 Urine Protein NEG mg/dL Urine Glucose (UA) NEG mg/dL Urine Ketones NEG mg/dL Urine Occult Blood TRACE Urine Nitrite NEG Urine Bilirubin NEG Urine Urobilinogen LESS THAN 2.0 MG/DL Urine Leukocyte Esterase TRACE Urine RBC 6 /hpf Urine WBC 1 /hpf Urine Squamous Epithelial 2 /hpf Cells Urine Bacteria RARE /hpf Microscopic Urinalysis Comment CULT NOT INDICATED MDM Medical Decision Making Medical Screen Exam Complete: Yes Emergency Medical Condition: Yes Differential Diagnosis UTI versus hemorrhagic cystitis versus urethritis Narrative Course 81-year-old female presents with urinary symptoms. The patient has rare bacteria and leukocyte esterase in her urine. She's been prescribed Cipro on multiple occasions and states this is the only antibiotic that works for her. I recommended we switched to a different antibiotic however she is adamant that she gets Cipro. I recommended that she follow up with her primary care physician. She is to return if she does any worsening symptoms. Diagnosis Primary Impression: Bacteriuria Additional Impression: Dysuria Referrals: [facility] Additional Instructions: Return if worse. Make sure you hydrate. Be sure to wipe front to back after urination. Med/Other Pt SpecificInfo: Prescription(s) given Scripts Ciprofloxacin 500 Mg [id number] Mg PO BID #6 TAB Ref 0 Prov:Marcos Grace MD 09/06/16 Disposition: 01 DISCHARGE HOME Condition: Stable Marcos Grace MD September 06, 2016 07:05
[2016-09-06 07:14] LABS: BACTERIA, URINE RARE /hpf; BLOOD, URINE TRACE (NEG); COMMENT (UR) CULT NOT INDICATED; CULTURE IF INDICATED CULT NOT INDICATED; GLUCOSE,URINE NEG (NEG); KETONE, URINE NEG (NEG); NITRITE,URINE NEG (NEG); PH, URINE 5.5 (5.0-8.5); SQUAMOUS EPITHELIAL CELL URINE 2 /hpf (0-5); URINE COLOR YELLOW (YELLW/STRAW)
[2016-09-06] MEDS ORDERED: MACR100C2 PO (07:25)
[2016-09-06] MEDS ORDERED: CIPR500T2 PO (07:34)
== END 2016-09-06 07:52 | disposition home or self-care (01) ==
LOC: NEPC 06:25
DX: R82.71 Bacteriuria (principal); R30.0 Dysuria
CPT/HCPCS: 81001; 99283

== ENCOUNTER 2016-09-19 13:09 | Emergency (ER) | payer MEDICARE, OTHER ==
[~2016-09-19] VITALS: Ht 157.5 cm; Wt 90.0 kg
[~2016-09-19 13:09] MED LIST changes: -CIPR-9 PO; +CIPR500T2 PO
[2016-09-19 13:12] VITALS: BP 128/76; PULSE 76; RESP 24; TEMP 97.8; O2SAT 95
[2016-09-19] MEDS ORDERED: SODIUM CHLOR 0.9% 1000 ML INJ 1,000 ML IV SCH (13:42)
[2016-09-19] MEDS ORDERED: ONDANSETRON HCL 4 MG/2 ML VIAL IV PUSH ONE (13:45)
[2016-09-19] MEDS ORDERED: SODIUM CHLORIDE 0.9% FLUSH 10 ML FLUSH IV FLUSH PRN (13:45)
--- NOTE | 2016-09-19 13:50 | PD ---
HPI Chief Complaint: Complaint Time Seen by Provider: 13:34 Travel History International Travel<30 days: No Contact w/Intl Traveler<30days: No Traveled to known affect area: No History of Present Illness HPI Patient is a 81 year old female who presents to ER with complaint of possible UTI. Patient reports that she was recently treated for a UTI with ciprofloxacin but reports "I wasn't on the medication long enough and I have a UTI again." Patient reports dysuria/flank pain, urinary urgency/freq. NO fever /chills. Reports that she is feeling nauseous, no vomiting. Denies constipation /diarrhea. No fever/chills. PFSH Past Medical History Arthritis: Yes Asthma: No Autoimmune Disease: No Blood Disorders: No Anxiety: No Depression: No Heart Rhythm Problems: No Cancer: Yes (MELANOMA) Cardiac Catheterization: No Cardiovascular Problems: Yes (HTN) High Cholesterol: No Chemotherapy: No Chest Pain: No Congestive Heart Failure: No COPD: No Cerebrovascular Accident: Yes Diabetes: No Diminished Hearing: No Endocrine: No Gastrointestinal Disorders: Yes GERD: Yes Glaucoma: No Genitourinary: Yes (UTI) Headaches: Yes Hepatitis: No Hiatal Hernia: No Hypertension: Yes Immune Disorder: No Implanted Vascular Access Dvce: No Kidney Stones: No Musculoskeletal: Yes (chronic back pain) Neurologic: Yes Psychiatric: No Reproductive: No Respiratory: Yes Immunizations Current: No Migraines: No Myocardial Infarction: No Radiation Therapy: No Renal Failure: No Seizures: No Sickle Cell Disease: No Sleep Apnea: No Thyroid Disease: No Ulcer: No PNEUMOCCOCAL Vaccine (Year): 2 Menopausal: Yes : 7 Para: 4 Tubal Ligation: Yes Past Surgical History Abdominal Surgery: Yes AICD: No Appendectomy: Yes Arteriovenous Shunt: No Cardiac Surgery: No Cholecystectomy: Yes Coronary Artery Bypass Graft: No Ear Surgery: No Endocrine Surgery: No Eye Surgery: No Gynecologic Surgery: Yes Insulin Pump: No Joint Replacement: No Neurologic Surgery: No Pacemaker: No Thoracic Surgery: No Tonsillectomy: Yes Other 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) Social History Alcohol Use: No Tobacco Use: No Substance Use: No Allergies-Medications (Allergen,Severity, Reaction): Coded Allergies: Sulfa (Verified Allergy, Severe, ITCHING, 09/19/16) Cephalexin (Verified Allergy, Unknown, rash, 09/19/16) Reported Meds & Prescriptions Reported Meds & Active Scripts Active Reported Enalapril (Enalapril Maleate) 20 Mg Tab 20 Mg PO DAILY Hydrochlorothiazide 25 Mg Tab 25 Mg PO DAILY Review of Systems General / Constitutional: No: Fever Eyes: No: Visual changes HENT: No: Headaches Cardiovascular: No: Chest Pain or Discomfort Respiratory: No: Shortness of Breath Gastrointestinal: No: Abdominal Pain Genitourinary: Positive: Urgency, Frequency, Dysuria, Flank Pain Musculoskeletal: No: Pain Skin: No Rash Neurologic: No: Weakness Psychiatric: No: Depression Endocrine: No: Polydipsia Hematologic/Lymphatic: No: Easy Bruising Physical Exam Narrative GENERAL: NAD, nontoxic SKIN: Focused skin assessment warm/dry. HEAD: Atraumatic. Normocephalic. EYES: No injection or drainage. ENT: No nasal bleeding or discharge. Mucous membranes pink and moist. NECK: Trachea midline. No JVD. CARDIOVASCULAR: Regular rate and rhythm. No murmur appreciated. RESPIRATORY: No accessory muscle use. Clear to auscultation. Breath sounds equal bilaterally. GASTROINTESTINAL: Abdomen soft, non-tender, nondistended. Hepatic and splenic margins not palpable. MUSCULOSKELETAL: No obvious deformities. No clubbing. No cyanosis. No edema. NEUROLOGICAL: Awake and alert. Normal speech. PSYCHIATRIC: Appropriate mood and affect; insight and judgment normal. Data Data Last Documented VS Vital Signs Date Time Temp Pulse Resp B/P Pulse Ox O2 Delivery O2 Flow Rate FiO2 09/19/16 13:12 97.8 76 24 128/76 95 Room Air Orders Complete Blood Count With Diff (09/19/16 13:42) Comprehensive Metabolic Panel (09/19/16 13:42) Urinalysis - C+S If Indicated (09/19/16 13:42) Iv Access Insert/Monitor (09/19/16 13:42) Sodium Chlor 0.9% 1000 Ml Inj (Ns 1000 M (09/19/16 13:42) Sodium Chloride 0.9% Flush (Ns Flush) (09/19/16 13:45) Ondansetron Inj (Zofran Inj) (09/19/16 13:45) Urine Culture (09/19/16 14:35) Nitrofurantoin Monohyd Macrocr (Macrobid (09/19/16 16:00) Labs Laboratory Tests Test 09/19/16 09/19/16 13:45 14:15 Urine Color YELLOW Urine Turbidity CLEAR Urine pH 7.0 Urine Specific [place] 1.012 Urine Protein NEG mg/dL Urine Glucose (UA) NEG mg/dL Urine Ketones NEG mg/dL Urine Occult Blood NEG Urine Nitrite NEG Urine Bilirubin NEG Urine Urobilinogen LESS THAN 2.0 MG/DL Urine Leukocyte Esterase SMALL Urine RBC 2 /hpf Urine WBC 4 /hpf Urine Squamous Epithelial 2 /hpf Cells Microscopic Urinalysis Comment CULT NOT INDICATED White Blood Count 10.6 TH/MM3 Red Blood Count 5.08 MIL/MM3 Hemoglobin 15.5 GM/DL Hematocrit 45.9 % Mean Corpuscular Volume 90.2 FL Mean Corpuscular Hemoglobin 30.4 PG Mean Corpuscular Hemoglobin 33.7 % Concent Red Cell Distribution Width 12.7 % Platelet Count 197 TH/MM3 Mean Platelet Volume 9.0 FL Neutrophils (%) (Auto) 76.9 % Lymphocytes (%) (Auto) 15.6 % Monocytes (%) (Auto) 4.9 % Eosinophils (%) (Auto) 1.8 % Basophils (%) (Auto) 0.8 % Neutrophils # (Auto) 8.1 TH/MM3 Lymphocytes # (Auto) 1.6 TH/MM3 Monocytes # (Auto) 0.5 TH/MM3 Eosinophils # (Auto) 0.2 TH/MM3 Basophils # (Auto) 0.1 TH/MM3 CBC Comment AUTO DIFF Differential Comment AUTO DIFF CONFIRMED Platelet Estimate NORMAL Platelet Morphology Comment NORMAL Sodium Level 142 MEQ/L Potassium Level 3.6 MEQ/L Chloride Level 103 MEQ/L Carbon Dioxide Level 33.6 MEQ/L Anion Gap 5 MEQ/L Blood Urea Nitrogen 25 MG/DL Creatinine 1.13 MG/DL Estimat Glomerular Filtration 46 ML/MIN Rate Random Glucose 82 MG/DL Calcium Level 9.0 MG/DL Total Bilirubin 0.6 MG/DL Aspartate Amino Transf 20 U/L (AST/SGOT) Alanine Aminotransferase 18 U/L (ALT/SGPT) Alkaline Phosphatase 82 U/L Total Protein 6.8 GM/DL Albumin 3.5 GM/DL [facility] Medical Decision Making Medical Screen Exam Complete: Yes Emergency Medical Condition: Yes Interpretation(s) Vital Signs Date Time Temp Pulse Resp B/P Pulse Ox O2 Delivery O2 Flow Rate FiO2 09/19/16 13:12 97.8 76 24 128/76 95 Room Air Differential Diagnosis uti, electrolyte abnormality Narrative Course 81-year-old female who presents to emergency room for evaluation of possible urinary tract infection. Patient reports that she was recently on Cipro, she feels that her course of medication was not long enough and she is having recurring symptoms. UA as well as labs ordered to evaluate for renal function. Previous cultures reviewed, patient is resistant to ciprofloxacin, will start her on macrobid, UC ordered patient will follow up with pcp and return to ER as needed Diagnosis Primary Impression: UTI (urinary tract infection) Qualified Code: N30.00 - Acute cystitis without hematuria Patient Instructions: General Instructions Additional Instructions: Please follow up with all cultures from today Return to ER as needed Please follow up with your primary care doctor Med/Other Pt SpecificInfo: Prescription(s) given Scripts Nitrofurantoin Monohydrate Macrocrystals (Macrobid)100 Mg [id number] Mg PO BID 10 Days Ref 0 Prov:Sayda Thomas DO 09/19/16 Disposition: 01 DISCHARGE HOME Condition: Stable Sayda Thomas DO Sep 19, 2016 13:50
[2016-09-19 13:57] LABS: BLOOD, URINE NEG (NEG); COMMENT (UR) CULT NOT INDICATED; CULTURE IF INDICATED CULT NOT INDICATED; GLUCOSE,URINE NEG (NEG); KETONE, URINE NEG (NEG); NITRITE,URINE NEG (NEG); SQUAMOUS EPITHELIAL CELL URINE 2 /hpf (0-5); URINE COLOR YELLOW (YELLW/STRAW)
[2016-09-19 14:48] LABS: AUTOMATED NEUTROPHIL # 8.1 TH/MM3 (1.8-7.7); BASOPHIL # 0.1 TH/MM3 (0-0.2); BASOPHIL % 0.8 % (0.0-2.0); EOSINOPHIL # 0.2 TH/MM3 (0-0.4); EOSINOPHIL % 1.8 % (0.0-4.0); HEMATOCRIT 45.9 % (35.0-46.0); LYMPH % 15.6 % (9.0-44.0); LYMPHOCYTE # 1.6 TH/MM3 (1.0-4.8); MEAN CELL VOLUME 90.2 FL (80.0-100.0); MEAN CORPUSCULAR HEMOGLOBIN 30.4 PG (27.0-34.0); MEAN CORPUSCULAR HGB CONC 33.7 % (32.0-36.0); MONO % 4.9 % (0.0-8.0); NEUT % 76.9 % (16.0-70.0); PLATELET COUNT 197 TH/MM3 (150-450); RED BLOOD COUNT 5.08 MIL/MM3 (4.00-5.30); RED CELL DISTRIBUTION WIDTH 12.7 % (11.6-17.2); WHITE BLOOD COUNT 10.6 TH/MM3 (4.0-11.0)
[2016-09-19 14:52] LABS: ALT (GPT) 18 U/L (10-53); ANION GAP 5 MEQ/L (5-15); AST (GOT) 20 U/L (15-37); BICARBONATE 33.6 MEQ/L (21.0-32.0); CHLORIDE 103 MEQ/L (98-107); GLOMERULAR FILTRATION RATE 46 ML/MIN (>89); POTASSIUM 3.6 MEQ/L (3.5-5.1); SODIUM (NA) 142 MEQ/L (136-145)
[2016-09-19 14:54] LABS: ALKALINE PHOSPHATASE 82 U/L (45-117); BLOOD UREA NITROGEN 25 MG/DL (7-18); TOTAL BILIRUBIN ADULT 0.6 MG/DL (0.2-1.0)
[2016-09-19 14:56] LABS: HEMO FLAGS AUTO DIFF
[2016-09-19 15:29] LABS: PLATELET ESTIMATE SMEAR NORMAL (NORMAL); PLATELET MORPHOLOGY NORMAL (NORMAL); SCAN/DIFF AUTO DIFF CONFIRMED
[2016-09-19] MEDS ORDERED: MACR100C2 PO (16:00)
[2016-09-19] MEDS ORDERED: NITROFURANTOIN MONOHYD MACROCR 100 MG CAP PO ONE (16:00)
== END 2016-09-19 16:10 | disposition home or self-care (01) ==
LOC: NEPE 13:09
DX: N30.00 Acute cystitis without hematuria (principal); B95.1 Streptococcus, group B, as the cause of diseases classified elsewhere; R11.0 Nausea; I10 Essential (primary) hypertension; Z87.39 Personal history of other diseases of the musculoskeletal system and connective tissue; Z86.79 Personal history of other diseases of the circulatory system; Z87.19 Personal history of other diseases of the digestive system; Z87.440 Personal history of urinary (tract) infections; Z86.69 Personal history of other diseases of the nervous system and sense organs
CPT/HCPCS: 80053; 81001; 85025; 87086; 96361; 96374; 99284; J2405; J7030

== ENCOUNTER 2016-09-20 17:53 | Emergency (ER) | payer MEDICARE, OTHER ==
[~2016-09-20] VITALS: Ht 157.5 cm; Wt 90.0 kg
[~2016-09-20 17:53] MED LIST changes: +MACR100C2 PO
[2016-09-20 17:55] VITALS: BP 148/80; PULSE 68; RESP 20; TEMP 97.9; O2SAT 93
[2016-09-20 18:17] LABS: BACTERIA, URINE RARE /hpf; BLOOD, URINE SMALL (NEG); COMMENT (UR) CULT NOT INDICATED; CULTURE IF INDICATED CULT NOT INDICATED; GLUCOSE,URINE NEG (NEG); KETONE, URINE NEG (NEG); NITRITE,URINE NEG (NEG); SQUAMOUS EPITHELIAL CELL URINE 2 /hpf (0-5); URINE COLOR YELLOW (YELLW/STRAW)
--- NOTE | 2016-09-20 18:53 | PD ---
HPI Chief Complaint: GI Complaint Time Seen by Provider: 18:50 Travel History International Travel<30 days: No Contact w/Intl Traveler<30days: No Traveled to known affect area: No History of Present Illness HPI 81-year-old female who comes to the emergency room repeatedly for urinary tract infection and wants ciprofloxacin. She was here couple days ago and had received Macrobid. And is here today because she says she has diarrhea. Vital signs are stable. She had a urine analysis done prior to my arrival which does not show any infection. PFSH Past Medical History Narrative Medical List of her past medical, surgical, social and family history was reviewed from the nursing note. Arthritis: Yes Asthma: No Autoimmune Disease: No Blood Disorders: No Anxiety: No Depression: No Heart Rhythm Problems: No Cancer: Yes (MELANOMA) Cardiac Catheterization: No Cardiovascular Problems: Yes (HTN) High Cholesterol: No Chemotherapy: No Chest Pain: No Congestive Heart Failure: No COPD: No Cerebrovascular Accident: Yes Diabetes: No Diminished Hearing: No Endocrine: No Gastrointestinal Disorders: Yes GERD: Yes Glaucoma: No Genitourinary: Yes (UTI) Headaches: Yes Hepatitis: No Hiatal Hernia: No Hypertension: Yes Immune Disorder: No Implanted Vascular Access Dvce: No Kidney Stones: No Musculoskeletal: Yes (chronic back pain) Neurologic: Yes Psychiatric: No Reproductive: No Respiratory: Yes Immunizations Current: No Migraines: No Myocardial Infarction: No Radiation Therapy: No Renal Failure: No Seizures: No Sickle Cell Disease: No Sleep Apnea: No Thyroid Disease: No Ulcer: No PNEUMOCCOCAL Vaccine (Year): 2 Menopausal: Yes : 7 Para: 4 Tubal Ligation: Yes Past Surgical History Abdominal Surgery: Yes AICD: No Appendectomy: Yes Arteriovenous Shunt: No Cardiac Surgery: No Cholecystectomy: Yes Coronary Artery Bypass Graft: No Ear Surgery: No Endocrine Surgery: No Eye Surgery: No Gynecologic Surgery: Yes Insulin Pump: No Joint Replacement: No Neurologic Surgery: No Pacemaker: No Thoracic Surgery: No Tonsillectomy: Yes Other 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) Social History Alcohol Use: No Tobacco Use: No Substance Use: No Allergies-Medications (Allergen,Severity, Reaction): Coded Allergies: Sulfa (Verified Allergy, Severe, ITCHING, 09/19/16) Cephalexin (Verified Allergy, Unknown, rash, 09/19/16) Comments List of allergies read from the nursing note. Reported Meds & Prescriptions Reported Meds & Active Scripts Active Macrobid (Nitrofurantoin Monoh/Nitrofur Macro) 100 Mg Cap 100 Mg PO BID 10 Days Reported Enalapril (Enalapril Maleate) 20 Mg Tab 20 Mg PO DAILY Hydrochlorothiazide 25 Mg Tab 25 Mg PO DAILY Narrative Medication List or her medications reviewed from the nursing note. Review of Systems Except as stated in HPI: all other systems reviewed are Neg Physical Exam Narrative GENERAL: Awake, alert, elderly, no obvious distress SKIN: Focused skin assessment warm/dry. HEAD: Atraumatic. Normocephalic. EYES: Pupils equal and round. No scleral icterus. No injection or drainage. ENT: No nasal bleeding or discharge. Mucous membranes pink and moist. NECK: Trachea midline. No JVD. CARDIOVASCULAR: Regular rate and rhythm. No murmur appreciated. RESPIRATORY: No accessory muscle use. Clear to auscultation. Breath sounds equal bilaterally. GASTROINTESTINAL: Abdomen soft, non-tender, nondistended. Hepatic and splenic margins not palpable. MUSCULOSKELETAL: No obvious deformities. No clubbing. No cyanosis. No edema. NEUROLOGICAL: Awake and alert. No obvious cranial nerve deficits. Motor grossly within normal limits. Normal speech. PSYCHIATRIC: Appropriate mood and affect; insight and judgment normal. Data Data Last Documented VS Vital Signs Date Time Temp Pulse Resp B/P Pulse Ox O2 Delivery O2 Flow Rate FiO2 09/20/16 17:55 97.9 68 20 148/80 93 Room Air Orders Urinalysis - C+S If Indicated (09/20/16 17:56) Labs Laboratory Tests Test 09/20/16 18:00 Urine Color YELLOW Urine Turbidity CLEAR Urine pH 5.0 Urine Specific [place] 1.017 Urine Protein NEG mg/dL Urine Glucose (UA) NEG mg/dL Urine Ketones NEG mg/dL Urine Occult Blood SMALL Urine Nitrite NEG Urine Bilirubin NEG Urine Urobilinogen LESS THAN 2.0 MG/DL Urine Leukocyte Esterase MOD Urine RBC 6 /hpf Urine WBC 4 /hpf Urine Squamous Epithelial 2 /hpf Cells Urine Bacteria RARE /hpf Microscopic Urinalysis Comment CULT NOT INDICATED MDM Medical Decision Making Medical Screen Exam Complete: Yes Emergency Medical Condition: Yes Medical Record Reviewed: Yes Differential Diagnosis UTI, recurrent UTI Narrative Course 6:52 PM given the normal UA I'm discharging her. After asked her not to take anymore of the antibiotic. Diarrhea could be related to the antibiotic overuse. Procedures EKG Prior to Arrival: No Diagnosis Primary Impression: Diarrhea Qualified Code: R19.7 - Diarrhea, unspecified type Referrals: Primary Care Physician Additional Instructions: Please return to the ER if the condition worsens or any other new concerns. Otherwise follow-up with your primary Med/Other Pt SpecificInfo: No Change to Meds Disposition: 01 DISCHARGE HOME Condition: Stable Melly Craig MD Sep 20, 2016 18:52
== END 2016-09-20 19:24 | disposition home or self-care (01) ==
LOC: NEPE 17:53
DX: R19.7 Diarrhea, unspecified (principal)
CPT/HCPCS: 81001; 99282

== ENCOUNTER 2016-10-11 06:07 | Emergency (ER) | payer MEDICARE, OTHER ==
[~2016-10-11] VITALS: Ht 157.5 cm; Wt 81.8 kg
[~2016-10-11 06:07] MED LIST changes: -CIPR500T2 PO
[2016-10-11 06:09] VITALS: BP 169/79; PULSE 68; RESP 16; TEMP 97.6; O2SAT 95
[2016-10-11 06:30] VITALS: BP 179/85; PULSE 66; O2SAT 96
--- NOTE | 2016-10-11 06:42 | PD ---
HPI Chief Complaint: Complaint Time Seen by Provider: 06:42 Travel History International Travel<30 days: No Contact w/Intl Traveler<30days: No Traveled to known affect area: No History of Present Illness HPI PATIENT CAME IN WITH MULTIPLE MINOR COMPLAINTS...FIRST ONE WAS DRY COUGH FOR 3 DAYS, NO PULM HX (SPECIFICALLY COPD/EMPHYSEMA/PULM EDEMA/CHF) NO FEVER. ALSO HAS URINARY FREQUENCY/ URGENCY/ OVER LAST 3 DAYS WELL....PATIENT IS ALSO OUT OF ENALAPRIL RX, HAS A FOLLOWUP WITH HER PCP DR SANTOS [facility] Past Medical History Arthritis: Yes Asthma: No Autoimmune Disease: No Blood Disorders: No Anxiety: No Depression: No Heart Rhythm Problems: No Cancer: Yes (MELANOMA) Cardiac Catheterization: No Cardiovascular Problems: Yes (HTN) High Cholesterol: No Chemotherapy: No Chest Pain: No Congestive Heart Failure: No COPD: No Cerebrovascular Accident: Yes Diabetes: No Diminished Hearing: No Endocrine: No Gastrointestinal Disorders: Yes GERD: Yes Glaucoma: No Genitourinary: Yes (UTI) Headaches: Yes Hepatitis: No Hiatal Hernia: No Hypertension: Yes Immune Disorder: No Implanted Vascular Access Dvce: No Kidney Stones: No Musculoskeletal: Yes (chronic back pain) Neurologic: Yes Psychiatric: No Reproductive: No Respiratory: Yes Immunizations Current: No Migraines: No Myocardial Infarction: No Radiation Therapy: No Renal Failure: No Seizures: No Sickle Cell Disease: No Sleep Apnea: No Thyroid Disease: No Ulcer: No PNEUMOCCOCAL Vaccine (Year): 2 Menopausal: Yes : 7 Para: 4 Tubal Ligation: Yes Past Surgical History Abdominal Surgery: Yes AICD: No Appendectomy: Yes Arteriovenous Shunt: No Cardiac Surgery: No Cholecystectomy: Yes Coronary Artery Bypass Graft: No Ear Surgery: No Endocrine Surgery: No Eye Surgery: No Gynecologic Surgery: Yes Insulin Pump: No Joint Replacement: No Neurologic Surgery: No Pacemaker: No Thoracic Surgery: No Tonsillectomy: Yes Other 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) Social History Alcohol Use: No Tobacco Use: No Substance Use: No Allergies-Medications (Allergen,Severity, Reaction): Coded Allergies: Sulfa (Verified Allergy, Severe, ITCHING, 10/11/16) Cephalexin (Verified Allergy, Unknown, rash, 10/11/16) Reported Meds & Prescriptions Reported Meds & Active Scripts Active Medrol Dosepak (Methylprednisolone) 4 Mg Dspk 4 Mg PO DIRECTED Per Pharmacist direction Enalapril (Enalapril Maleate) 20 Mg Tab 20 Mg PO DAILY Ciprofloxacin (Ciprofloxacin HCl) 500 Mg Tab 500 Mg PO BID Proventil Hfa 6.7 GM Inh (Albuterol Sulfate) 90 Mcg/Act Aer 1 Puff INH Q4H PRN Reported Enalapril (Enalapril Maleate) 20 Mg Tab 20 Mg PO DAILY Hydrochlorothiazide 25 Mg Tab 25 Mg PO DAILY Review of Systems Respiratory: Positive: Cough Genitourinary: Positive: Urgency, Frequency, Dysuria Physical Exam Narrative GENERAL: SKIN: Warm and dry. HEAD: Atraumatic. Normocephalic. EYES: Pupils equal and round. No scleral icterus. No injection or drainage. ENT: No nasal bleeding or discharge. Mucous membranes pink and moist. NECK: Trachea midline. No JVD. CARDIOVASCULAR: Regular rate and rhythm. RESPIRATORY: No accessory muscle use. BILATERAL SCATTERED WHEEZE, GOOD TIDAL VOLUME GASTROINTESTINAL: Abdomen soft, non-tender, nondistended. Hepatic and splenic margins not palpable. MUSCULOSKELETAL: Extremities without clubbing, cyanosis, or edema. No obvious deformities. NEUROLOGICAL: Awake and alert. No obvious cranial nerve deficits. Motor grossly within normal limits. Five out of 5 muscle strength in the arms and legs. Normal speech. PSYCHIATRIC: Appropriate mood and affect; insight and judgment normal. Data Data Last Documented VS Vital Signs Date Time Temp Pulse Resp B/P Pulse Ox O2 Delivery O2 Flow Rate FiO2 10/11/16 08:00 12 16 139/79 99 10/11/16 07:15 Room Air 10/11/16 06:09 97.6 Orders Urinalysis - C+S If Indicated (10/11/16 06:32) Chest, Pa & Lat (10/11/16 06:32) Ciprofloxacin (Cipro) (10/11/16 07:15) Albuterol-Ipratropium Neb (Duoneb Neb) (10/11/16 07:15) Enalapril (Vasotec) (10/11/16 07:15) Labs Laboratory Tests Test 10/11/16 06:43 Urine Color YELLOW Urine Turbidity CLEAR Urine pH 6.0 Urine Specific [place] 1.020 Urine Protein NEG mg/dL Urine Glucose (UA) NEG mg/dL Urine Ketones NEG mg/dL Urine Occult Blood TRACE Urine Nitrite NEG Urine Bilirubin NEG Urine Urobilinogen LESS THAN 2.0 MG/DL Urine Leukocyte Esterase TRACE Urine RBC 8 /hpf Urine WBC 1 /hpf Urine Squamous Epithelial 1 /hpf Cells Urine Bacteria RARE /hpf Microscopic Urinalysis Comment CULT NOT INDICATED MDM Medical Decision Making Medical Screen Exam Complete: Yes Emergency Medical Condition: Yes Medical Record Reviewed: Yes Differential Diagnosis UTI V BRONCHITIS V PNA Narrative Course PATIENT EVALUATION REVEALED STABLE VSS, NO E/O PNA OR UTI....WILL D/C HOME AND ADVISED TO F/U WITH PCP. Diagnosis Primary Impression: ACUTE BONCHITIS WITH BRONCHOSPASM Additional Impression: MEDICATION REFILL Scripts Methylprednisolone Dosepak (Medrol Dosepak)4 Mg Dspk4 Mg PO DIRECTED #1 DSPK Per Pharmacist direction Prov:Damien Crystal MD 10/11/16 Enalapril 20 Mg Tab20 Mg PO DAILY #30 TAB Ref 0 Prov:Damien Crystal MD 10/11/16 Ciprofloxacin 500 Mg [id number] Mg PO BID #14 TAB Prov:Damien Crystal MD 10/11/16 Albuterol 6.7 GM Inh (Proventil Hfa 6.7 GM Inh)90 Mcg/Act Aer1 Puff INH Q4H PRN (SHORTNESS OF BREATH) #1 INHALER Prov:Damien Crystal MD 10/11/16 Disposition: 01 DISCHARGE HOME Condition: Stable Damien Crystal MD Oct 11, 2016 06:42
[2016-10-11] MEDS ORDERED: CIPR500T2 PO (06:52)
[2016-10-11] MEDS ORDERED: ENAL20TA PO (06:52)
[2016-10-11] MEDS ORDERED: ALBU6.7H INH (06:52)
--- NOTE | 2016-10-11 06:55 | RADRPT ---
EXAM DATE/TIME: 10/11/2016 06:52 [facility] COMPARISON: CHEST SINGLE AP, March 22, 2015, 14:28. INDICATIONS : Pt fell three days ago- has had cough x 1 week. MEDICAL HISTORY : Hiatal hernia. SURGICAL HISTORY : None. ENCOUNTER: Initial ACUITY: 3 days PAIN SCORE: 7/10 LOCATION: Bilateral chest FINDINGS: The lungs are clear without infiltrate, nodule, or mass except for minimal linear atelectasis in the right lung base. There is no appreciable pleural effusion for technique. Heart and mediastinum are unremarkable. CONCLUSION: Mild right lung linear atelectasis. Amber Nicole MD on October 11, 2016 at 6:52 Board Certified Radiologist. This report was verified electronically.
[2016-10-11] MEDS ORDERED: MEDR4PAK PO (07:11)
[2016-10-11 07:15] VITALS: BP 177/72; PULSE 68; RESP 16; O2SAT 98
[2016-10-11] MEDS ORDERED: CIPROFLOXACIN 500 MG TAB PO ONE (07:15)
[2016-10-11] MEDS ORDERED: ENALAPRIL MALEATE 10 MG TAB PO ONE (07:15)
[2016-10-11] MEDS ORDERED: RESP: ALBUTEROL 2.5 MG/IPRATROPIUM 0.5 MG NEB (SCH) NEB ONE (07:15)
[2016-10-11 08:00] VITALS: BP 139/79
[2016-10-11 08:32] LABS: BACTERIA, URINE RARE /hpf; BLOOD, URINE TRACE (NEG); COMMENT (UR) CULT NOT INDICATED; CULTURE IF INDICATED CULT NOT INDICATED; GLUCOSE,URINE NEG (NEG); KETONE, URINE NEG (NEG); NITRITE,URINE NEG (NEG); SQUAMOUS EPITHELIAL CELL URINE 1 /hpf (0-5); URINE COLOR YELLOW (YELLW/STRAW)
== END 2016-10-11 08:15 | disposition home or self-care (01) ==
LOC: NEPC 06:07
DX: J20.9 Acute bronchitis, unspecified (principal); R35.0 Frequency of micturition; R39.15 Urgency of urination; M19.90 Unspecified osteoarthritis, unspecified site; I10 Essential (primary) hypertension; K21.9 Gastro-esophageal reflux disease without esophagitis; Z79.899 Other long term (current) drug therapy; Z86.73 Personal history of transient ischemic attack (TIA), and cerebral infarction without residual deficits
CPT/HCPCS: 71020; 81001; 94664; 99284

== ENCOUNTER 2016-10-21 21:35 | Observation (INO) | payer MEDICARE, OTHER ==
[~2016-10-21] VITALS: Ht 157.5 cm; Wt 90.6 kg
[~2016-10-21 21:35] MED LIST changes: +ALBU6.7H INH; +CIPR500T2 PO; -MACR100C2 PO; +MEDR4PAK PO
[2016-10-21 22:11] VITALS: BP 142/76; PULSE 64; RESP 18; TEMP 98.2; O2SAT 99
--- NOTE | 2016-10-21 22:19 | PD ---
HPI Chief Complaint: General Weakness Time Seen by Provider: 22:12 Travel History International Travel<30 days: No Contact w/Intl Traveler<30days: No Traveled to known affect area: No History of Present Illness HPI The patient is an 81 year old male who presents to the [facility] emergency department with a history of feeling dizzy and weak when she stood up this evening. She reports feeling unsteady on her feet with walking. She denies any vertigo. The patient reports that the symptoms of dizziness or more of a lightheaded sensation. She denies any recent changes in her blood pressure medication regimen. She recently was diagnosed with an upper respiratory infection associated with wheezing. She is coughing less over time. She was recently dx with a UTI however after she began to fell better she stopped the antibiotic. She has had diarrhea x1 today. She also incidentally reports that she has had left leg weakness that has been going on for months. She has had tingling of the right thigh that she noticed last week. On review of systems, the patient denies any recent fevers, neck pain, chest pain, worsening or recurrent shortness of breath, abdominal pain, vomiting, diarrhea, urinary symptoms, or new neurologic symptoms. PCP: Dr. Joycelyn Fritz. [facility] Past Medical History Narrative Medical The patient's past medical history is significant for hypertension, melanoma, history of arthritis, history of acid reflux, history of recurrent urinary tract infections, history of headaches, history of chronic low back pain. Arthritis: Yes Asthma: No Autoimmune Disease: No Blood Disorders: No Anxiety: No Depression: No Heart Rhythm Problems: No Cancer: Yes (MELANOMA) Cardiac Catheterization: No Cardiovascular Problems: Yes (HTN) High Cholesterol: No Chemotherapy: No Chest Pain: No Congestive Heart Failure: No COPD: No Cerebrovascular Accident: Yes Diabetes: No Diminished Hearing: No Endocrine: No Gastrointestinal Disorders: Yes GERD: Yes Glaucoma: No Genitourinary: Yes (UTI) Headaches: Yes Hepatitis: No Hiatal Hernia: No Hypertension: Yes Immune Disorder: No Implanted Vascular Access Dvce: No Kidney Stones: No Musculoskeletal: Yes (chronic back pain) Neurologic: Yes Psychiatric: No Reproductive: No Respiratory: Yes Immunizations Current: No Migraines: No Myocardial Infarction: No Radiation Therapy: No Renal Failure: No Seizures: No Sickle Cell Disease: No Sleep Apnea: No Thyroid Disease: No Ulcer: No Tetanus Vaccination: > 5 Years Influenza Vaccination: No PNEUMOCCOCAL Vaccine (Year): 2 Menopausal: Yes : 7 Para: 4 Tubal Ligation: Yes Past Surgical History Narrative Surgical The patient has past surgical history significant for an appendectomy, cholecystectomy, tonsillectomy, jaw surgery related to osteomyelitis in the left mandible. Abdominal Surgery: Yes AICD: No Appendectomy: Yes Arteriovenous Shunt: No Cardiac Surgery: No Cholecystectomy: Yes Coronary Artery Bypass Graft: No Ear Surgery: No Endocrine Surgery: No Eye Surgery: No Gynecologic Surgery: Yes Insulin Pump: No Joint Replacement: No Neurologic Surgery: No Pacemaker: No Thoracic Surgery: No Tonsillectomy: Yes Other 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) Social History Alcohol Use: No Tobacco Use: No Substance Use: No Allergies-Medications (Allergen,Severity, Reaction): Coded Allergies: Sulfa (Verified Allergy, Severe, ITCHING, 10/11/16) Cephalexin (Verified Allergy, Unknown, rash, 10/11/16) Reported Meds & Prescriptions Reported Meds & Active Scripts Active Medrol Dosepak (Methylprednisolone) 4 Mg Dspk 4 Mg PO DIRECTED Per Pharmacist direction Enalapril (Enalapril Maleate) 20 Mg Tab 20 Mg PO DAILY Ciprofloxacin (Ciprofloxacin HCl) 500 Mg Tab 500 Mg PO BID Proventil Hfa 6.7 GM Inh (Albuterol Sulfate) 90 Mcg/Act Aer 1 Puff INH Q4H PRN Reported Enalapril (Enalapril Maleate) 20 Mg Tab 20 Mg PO DAILY Hydrochlorothiazide 25 Mg Tab 25 Mg PO DAILY Review of Systems Except as stated in HPI: all other systems reviewed are Neg General / Constitutional: No: Fever Eyes: No: Visual changes HENT: No: Headaches, Neck Stiffness, Neck Pain Cardiovascular: No: Chest Pain or Discomfort Respiratory: Positive: Cough, No: Shortness of Breath Gastrointestinal: Positive: Diarrhea, Changes in Bowel Habits, No: Nausea, Vomiting, Abdominal Pain, Hematemesis, Hematochezia, Constipation, Indigestion, Loss of Appetite Genitourinary: No: Dysuria Musculoskeletal: No: Pain Skin: No Rash Neurologic: Positive: Weakness, Dizziness, No: Focal Abnormalities, Change in Mentation, Slurred Speech, Sensory Disturbance Psychiatric: No: Depression Endocrine: No: Polydipsia Hematologic/Lymphatic: No: Easy Bruising Physical Exam Narrative General: The patient is a well-developed well-nourished female in no acute distress. Head and Neck exam: Head is normocephalic atraumatic. Eyes: EOMI, pupils are equal round and reactive to light. Nose: Midline septum with pink mucous membranes Mouth: Dentition unremarkable. Moist mucus membranes. Posterior oropharynx is not erythematous. No tonsillar hypertrophy. Uvula midline. Airway patent. Neck: No palpable lymphadenopathy. No nuchal rigidity. No thyromegaly. Cardiovascular: Regular rate and rhythm without murmurs, gallops, or rubs. Lungs: Clear to auscultation bilaterally. No wheezes, rhonchi, or rales. Abdomen: Soft, without tenderness to palpation in all 4 quadrants of the abdomen. No guarding, rebound, or rigidity. Normal bowel sounds are audible. No tenderness on palpation of McBurney's point. Negative [place] sign. Extremities: No clubbing, cyanosis, or edema. 2+ pulses in all 4 extremities. No calf tenderness on palpation. Back: No spinous process tenderness to palpation. No costovertebral angle tenderness to palpation. Neurologic Exam: Cranial nerves 2-12 were intact on exam. Strength is 5/5 in all 4 extremities. No sensory deficits noted. No dysdiadochokinesis. Good finger to nose and Heel to ahuja bilaterally. Skin Exam: No rash noted. Intact skin that is warm and dry. Data Data Last Documented VS Vital Signs Date Time Temp Pulse Resp B/P Pulse Ox O2 Delivery O2 Flow Rate FiO2 10/21/16 22:12 Room Air 10/21/16 22:11 98.2 64 18 142/76 99 Orders Electrocardiogram (10/21/16 22:14) Complete Blood Count With Diff (10/21/16 22:14) Comprehensive Metabolic Panel (10/21/16 22:14) Creatine Kinase (Cpk) (10/21/16 22:14) Ckmb (Isoenzyme) Profile (10/21/16 22:14) Troponin I (10/21/16 22:14) Prothrombin Time / Inr (Pt) (10/21/16 22:14) Act Partial Throm Time (Ptt) (10/21/16 22:14) Lipase (10/21/16 22:14) Urinalysis - C+S If Indicated (10/21/16 22:14) Magnesium (Mg) (10/21/16 22:14) Thyroid Stimulating Hormone (10/21/16 22:14) Chest, Single Ap (10/21/16 22:14) Ecg Monitoring (10/21/16 22:14) Oximetry (10/21/16 22:14) Iv Access Insert/Monitor (10/21/16 22:14) Ct Brain W/O Iv Contrast(Rout) (10/21/16 22:49) Oral Rehydration (10/21/16 22:55) Sodium Chlor 0.9% 1000 Ml Inj (Ns 1000 M (10/21/16 23:00) Aspirin (Aspirin) (10/22/16 00:45) Admit Order (Ed Use Only) (10/22/16 00:44) Labs Laboratory Tests Test 10/21/16 10/21/16 10/21/16 22:10 22:20 23:40 Urine Color YELLOW Urine Turbidity HAZY Urine pH 5.5 Urine Specific [place] 1.025 Urine Protein TRACE mg/dL Urine Glucose (UA) NEG mg/dL Urine Ketones NEG mg/dL Urine Occult Blood TRACE Urine Nitrite NEG Urine Bilirubin NEG Urine Urobilinogen LESS THAN 2.0 MG/DL Urine Leukocyte Esterase SMALL Urine RBC 10 /hpf Urine WBC 3 /hpf Urine Squamous Epithelial 4 /hpf Cells Urine Transitional Epithelial <1 /hpf Cells Urine Hyaline Casts 1 /lpf Urine Mucus FEW /lpf Microscopic Urinalysis Comment CULT NOT INDICATED White Blood Count 7.4 TH/MM3 Red Blood Count 4.73 MIL/MM3 Hemoglobin 14.1 GM/DL Hematocrit 42.6 % Mean Corpuscular Volume 90.1 FL Mean Corpuscular Hemoglobin 29.9 PG Mean Corpuscular Hemoglobin 33.2 % Concent Red Cell Distribution Width 12.8 % Platelet Count 190 TH/MM3 Mean Platelet Volume 9.1 FL Neutrophils (%) (Auto) 61.6 % Lymphocytes (%) (Auto) 27.1 % Monocytes (%) (Auto) 6.8 % Eosinophils (%) (Auto) 3.2 % Basophils (%) (Auto) 1.3 % Neutrophils # (Auto) 4.6 TH/MM3 Lymphocytes # (Auto) 2.0 TH/MM3 Monocytes # (Auto) 0.5 TH/MM3 Eosinophils # (Auto) 0.2 TH/MM3 Basophils # (Auto) 0.1 TH/MM3 CBC Comment DIFF FINAL Differential Comment Prothrombin Time 10.7 SEC Prothromb Time International 1.0 RATIO Ratio Activated Partial 23.0 SEC Thromboplast Time Sodium Level 142 MEQ/L Potassium Level 3.4 MEQ/L Chloride Level 107 MEQ/L Carbon Dioxide Level 28.4 MEQ/L Anion Gap 7 MEQ/L Blood Urea Nitrogen 27 MG/DL Creatinine 1.14 MG/DL Estimat Glomerular Filtration 46 ML/MIN Rate Random Glucose 98 MG/DL Calcium Level 8.4 MG/DL Magnesium Level 1.7 MG/DL Total Bilirubin 0.5 MG/DL Aspartate Amino Transf 20 U/L (AST/SGOT) Alanine Aminotransferase 17 U/L (ALT/SGPT) Alkaline Phosphatase 77 U/L Total Creatine Kinase 70 U/L Troponin I LESS THAN 0.02 NG/ML Total Protein 6.4 GM/DL Albumin 3.2 GM/DL Lipase 115 U/L Thyroid Stimulating Hormone 3.570 uIU/ML 3rd Gen [facility] Medical Decision Making Medical Screen Exam Complete: Yes Emergency Medical Condition: Yes Medical Record Reviewed: Yes Interpretation(s) Last Impressions Head CT 10/21/162248 Signed Impressions: Service Date/Time: Friday, October 21, 2016 23:19 - CONCLUSION: No acute intracranial abnormality. Chronic white matter changes are again noted. Raffy Mcneil MD Chest X-Ray 10/21/[id number] Signed Impressions: Service Date/Time: Friday, October 21, 2016 22:09 - CONCLUSION: Large hiatal hernia otherwise negative. Zeus Aden MD FACR Differential Diagnosis TIA, versus orthostasis, versus mild dehydration, versus infectious process such as urinary tract infection, versus weakness related to electrolyte derangement Narrative Course During the course of the patients emergency department visit, the patients history, examination, and differential diagnosis were reviewed with the patient. The patient had IV access obtained and blood work sent for analysis. The patient was placed on a monitoring manager with oximetry and blood pressure monitoring. An ECG was done on arrival. The patient's ECG reveals a sinus rhythm at 67, incomplete right bundle-branch block, QRS duration 96 ms, QTC 429 ms, no acute ST segment elevation or depression. The patient was initially provided saline at 75 mL per hour. The patients laboratory studies were reviewed and remarkable for a CBC that is within normal limits, CMP is remarkable for potassium of 3.4, BUN 27, creatinine 1.14, GFR 46, calcium 8.4, total CPK 70, troponin I less than 0.02, albumin 3.2, lipase 115, TSH 3.57, PT 10.7, PTT 23, urinalysis shows trace occult blood, small leukocyte esterase, 10 rbc's Radiology studies were reviewed and remarkable for a chest x-ray that shows a large hiatal hernia otherwise unremarkable, CT scan of the brain shows no acute abnormality, chronic white matter changes are noted. Given the patient's intermittent neurologic symptoms, the patient will be admitted to the hospital for evaluation for possible TIAs. The patients results were discussed with the patient, including the plan of care. I explained that further testing and/ or monitoring is indicated based on the patients history, examination, and/ or laboratory findings. Therefore, I recommended admission for additional evaluation. The patient expressed understanding and was agreeable with this plan. The patient was admitted to the hospital in stable condition and sent to a bed under the [facility]. Physician Communication Physician Communication The patient's case was discussed with Dr. Scott who did agree to admit the patient for further evaluation and treatment at this time. Diagnosis Primary Impression: TIA (transient ischemic attack) Qualified Code: G45.9 - Transient cerebral ischemia, unspecified type Admitting Information Admitting Physician Requests: Araceli Vasquez MD Oct 21, 2016 22:19
--- NOTE | 2016-10-21 22:28 | RADRPT ---
EXAM DATE/TIME: 10/21/2016 22:09 [facility] COMPARISON: CHEST SINGLE AP, March 22, 2015, 14:28. INDICATIONS : Cough, short of breath MEDICAL HISTORY : Hypertension. SURGICAL HISTORY : Hiatal hernia. ENCOUNTER: Initial ACUITY: 2 weeks PAIN SCORE: 0/10 LOCATION: chest FINDINGS: A single view of the chest demonstrates the lungs to be symmetrically aerated without evidence of mas s, infiltrate or effusion. The cardiomediastinal contours are unremarkable. Osseous structures are intact. CONCLUSION: Large hiatal hernia otherwise negative. Zeus Aden MD FACR on October 21, 2016 at 22:26 Board Certified Radiologist. This report was verified electronically.
[2016-10-21 22:45] LABS: AUTOMATED NEUTROPHIL # 4.6 TH/MM3 (1.8-7.7); BASOPHIL # 0.1 TH/MM3 (0-0.2); BASOPHIL % 1.3 % (0.0-2.0); EOSINOPHIL # 0.2 TH/MM3 (0-0.4); EOSINOPHIL % 3.2 % (0.0-4.0); HEMATOCRIT 42.6 % (35.0-46.0); HEMO FLAGS DIFF FINAL; LYMPH % 27.1 % (9.0-44.0); MEAN CELL VOLUME 90.1 FL (80.0-100.0); MEAN CORPUSCULAR HEMOGLOBIN 29.9 PG (27.0-34.0); MEAN CORPUSCULAR HGB CONC 33.2 % (32.0-36.0); MONO % 6.8 % (0.0-8.0); NEUT % 61.6 % (16.0-70.0); PLATELET COUNT 190 TH/MM3 (150-450); RED BLOOD COUNT 4.73 MIL/MM3 (4.00-5.30); RED CELL DISTRIBUTION WIDTH 12.8 % (11.6-17.2); WHITE BLOOD COUNT 7.4 TH/MM3 (4.0-11.0)
[2016-10-21 22:51] LABS: BLOOD, URINE TRACE (NEG); GLUCOSE,URINE NEG (NEG); HYALINE CAST, URINE 1 /lpf (RARE); KETONE, URINE NEG (NEG); MUCUS URINE FEW /lpf (OCC); NITRITE,URINE NEG (NEG); PH, URINE 5.5 (5.0-8.5); SQUAMOUS EPITHELIAL CELL URINE 4 /hpf (0-5); TRANSITIONAL EPI CELLS, URINE <1 /hpf; URINE COLOR YELLOW (YELLW/STRAW)
[2016-10-21 22:55] LABS: COMMENT (UR) CULT NOT INDICATED; CULTURE IF INDICATED CULT NOT INDICATED
[2016-10-21 22:57] LABS: PROTHROMBIN TIME - PATIENT 10.7 SEC (9.8-11.6)
[2016-10-21] MEDS ORDERED: SODIUM CHLOR 0.9% 1000 ML INJ 1,000 ML IV SCH (23:00)
--- NOTE | 2016-10-21 23:38 | RADRPT ---
EXAM DATE/TIME: 10/21/2016 23:19 [facility] COMPARISON: Report only CT BRAIN W/O CONTRAST, December 27, 2009, 12:22. INDICATIONS : Dizziness and weakness. RADIATION DOSE: 61.38 CTDIvol (mGy) MEDICAL HISTORY : Cerebrovascular disease. Cardiovascular disease Hypertension.GERD SURGICAL HISTORY : Appendectomy. Cholecystectomy.Tubal ligation. ENCOUNTER: Initial ACUITY: 1 day PAIN SCALE: 0/10 LOCATION: cranial TECHNIQUE: Multiple contiguous axial images were obtained of the head. Using automated exposure control and adj ustment of the mA and/or kV according to patient size, radiation dose was kept as low as reasonably a chievable to obtain optimal diagnostic quality images. DICOM format image data is available electro nically for review and comparison. FINDINGS: CEREBRUM: The ventricles are normal for age. No evidence of midline shift, mass lesion, hemorrhage or acute in farction. No extra-axial fluid collections are seen. Mild chronic low-attenuation seen in the perive ntricular white matter, was commented on previously. POSTERIOR FOSSA: The cerebellum and brainstem are intact. The 4th ventricle is midline. The cerebellopontine angle i s unremarkable. EXTRACRANIAL: The visualized portion of the orbits is intact. SKULL: The calvaria is intact. No evidence of skull fracture. CONCLUSION: No acute intracranial abnormality. Chronic white matter changes are again noted. Raffy Mcneil MD on October 21, 2016 at 23:35 Board Certified Radiologist. This report was verified electronically.
[2016-10-22 00:08] LABS: ALT (GPT) 17 U/L (10-53)
[2016-10-22 00:18] LABS: ALKALINE PHOSPHATASE 77 U/L (45-117); TOTAL BILIRUBIN ADULT 0.5 MG/DL (0.2-1.0)
[2016-10-22 00:20] LABS: ANION GAP 7 MEQ/L (5-15); AST (GOT) 20 U/L (15-37); BICARBONATE 28.4 MEQ/L (21.0-32.0); BLOOD UREA NITROGEN 27 MG/DL (7-18); CHLORIDE 107 MEQ/L (98-107); CREATINE KINASE 70 U/L (26-192); GLOMERULAR FILTRATION RATE 46 ML/MIN (>89); MAGNESIUM 1.7 MG/DL (1.5-2.5); POTASSIUM 3.4 MEQ/L (3.5-5.1); SODIUM (NA) 142 MEQ/L (136-145)
[2016-10-22] MEDS ORDERED: ASPIRIN 325 MG TAB PO ONE (00:45)
[2016-10-22] MEDS: SODIUM CHLOR 0.9% 1000 ML INJ 1,000 ML IV SCH ×2 (01:40→14:35)
[2016-10-22 02:26] VITALS: BP 142/78; PULSE 63; RESP 18; O2SAT 96
[2016-10-22 06:40] VITALS: BP 158/81; PULSE 55; RESP 21; TEMP 95.3; O2SAT 98
[2016-10-22 08:27] VITALS: BP 137/69; PULSE 64; RESP 20; TEMP 95.9; O2SAT 96
[2016-10-22] MEDS ORDERED: HYDROCHLOROTHIAZIDE 25 MG TAB PO SCH (09:00)
[2016-10-22] MEDS: PANTOPRAZOLE SOD 40 MG DELAYED RELEASE TAB PO SCH (09:57)
[2016-10-22] MEDS: ASPIRIN 325 MG TAB PO SCH (09:57)
[2016-10-22] MEDS: HEPARIN SODIUM - SQ 10,000 UNITS/ML VIAL SQ SCH ×2 (09:58→21:00)
--- NOTE | 2016-10-22 10:08 | RADRPT ---
EXAM DATE/TIME: 10/22/2016 08:38 [facility] COMPARISON: No previous studies available for comparison. INDICATIONS : Transient ischemic attack. MEDICAL HISTORY : Gastroesophageal reflux disease. Hypertension. Stroke. Arthritis. UTI. Osteoarthritis. Osteomyelitis. Melanoma. SURGICAL HISTORY : Tonsillectomy. Cholecystectomy. Appendectomy. Tubal ligation. ENCOUNTER: Initial ACUITY: 1 week PAIN SCORE: 2/10 LOCATION: Bilateral neck PEAK SYSTOLIC VELOCITIES (cm/sec): ICA/CCA RATIO: Right: 0.7 Left: 0.7 ICA: Right: 76.2 Left: 65.7 CCA: Right: 108.2 Left: 98.1 ECA: Right: 173.2 Left: 69.1 VERTEBRAL: Right: 38.3 antegrade Left: 32.0 antegrade Elevated flow velocities and ICA/CCA ratios have been found to correlate with increased degrees of vessel stenosis, calculated as percentage of diameter relative to a normal segment of distal ICA/CCA FINDINGS: RIGHT CAROTID: No significant stenosis is visualized. The waveforms are within normal limits. LEFT CAROTID: No significant stenosis is visualized. The waveforms are within normal limits. VERTEBRAL ARTERIES: Antegrade flow is seen in both vertebral arteries. MISCELLANEOUS: None. CONCLUSION: No evidence of flow-limiting carotid stenosis. Raffy Davis MD on October 22, 2016 at 10:05 Board Certified Radiologist. This report was verified electronically.
--- NOTE | 2016-10-22 11:24 | MH ---
cc: CAROL QUEEN MD DATE OF ADMISSION: 10/22/2016 DATE OF : 1935 REASON FOR ADMISSION Generalized weakness and dizziness. TRAVEL IN THE LAST 30 DAYS None. HISTORY OF PRESENT ILLNESS This is a pleasant 81-year-old white female who has been struggling over the past day with increased weakness and dizziness. The patient states that she has had these symptoms in the past and has noted three different occasions of dizziness over the past few months. She went out last night to sit on her deck and when she attempted to get up she states that everything around her with spinning. She considers it more of a light-headed feeling and had to reach to hold onto a rail or she states that she would have fell. She has recently been treated for an upper respiratory infection. She currently is still coughing, a productive cough but does not spit up any sputum. Recently had a diagnosis of a UTI, but when the symptoms went away the patient quit taking the medication. She has also noted diarrhea x1 yesterday p.m., but denies any fever. The patient denies chest pain, no shortness of breath out of the ordinary, no nausea or vomiting, no decrease in appetite. She does have a history of TIA x3 in the past. She also notes problems with her balance and has a hard time standing for any period of time without reaching out to hold onto something. The patient does note some mild reflux distress at times. She is mildly restless and agitated with her current condition. She does note a fall this past week in [place] with a left shoulder injury. She is able to move the shoulder but has a clicking sound with movement. She also notes an occasional twitch or jerk when lying down to rest or with activity and ambulation. She is positive for trace lower extremity edema. She takes her medications as prescribed and sees her physicians as noted per the physician's preference. PAST MEDICAL HISTORY 1. Hypertension. 2. GERD. 3. Large hiatal hernia. 4. Recent UTI. 5. Recent upper respiratory infection. 6. Arthritis. 7. 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 8. Melanoma. 9. TIA x3. 10. Headaches. 11. Chronic back pain. 12. Balance disorder. 13. History of dizziness with lightheadedness. 14. She is up-to-date on her vaccinations. PAST SURGICAL HISTORY 1. Appendectomy. 2. Cholecystectomy. 3. Tonsillectomy. 4. Jaw surgery related to osteoarthritis of the left mandible as a child which has left her jaw line with the left jaw line being higher than the right. ALLERGIES 1. SULFA. 2. CEPHALEXIN. MEDICATIONS Active medications: 1. Medrol Dosepak. 2. Enalapril. 3. Cipro, which she is not taking. 4. Proventil. 5. Hydrochlorothiazide. SOCIAL HISTORY No alcohol, tobacco or illicit drugs. She is single, lives alone. She did smoke at a younger age but quit smoking 31 years ago. REVIEW OF SYSTEMS A 12-point review was obtained. Positives as noted in the HPI. Other systems are negative or unremarkable. PHYSICAL EXAMINATION VITAL SIGNS: Temperature 95.9, pulse labile between 55 and 64, O2 sat 96 on room air, respirations 20, blood pressure 137/69, high 158/81 noted. GENERAL: A well-nourished, obese elderly white female who looks to be her stated age, resting in the day. She is alert, oriented, mildly anxious, a fairly good historian. SKIN: Pale. Turgor is thin and loose. Warm and dry. HEENT: Atraumatic, normocephalic. PERRLA at 2 mm. Mucous membranes are moist. Tongue is clear. Ocular movements normal. Abnormal jaw line secondary to the osteoarthritis as a child and surgical repair. NECK: Supple. CARDIOVASCULAR: S1, S2. Rhythm is regular. Borderline bradycardia. No murmurs, rubs or gallops. She has warm extremities and trace edema in her lower extremities. LUNGS: Mild rhonchi, mild expiratory wheeze, otherwise essentially clear for rales. Diminished sounds at the bases. EXTREMITIES: Moves her extremities with purpose. 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 Some generalized weakness but is able to overcome resistance. No obvious deformities. NEUROLOGIC: Speech is fairly clear and understandable. Tongue is midline. PSYCHOLOGICAL: Mood and affect show some mild to moderate anxiety. LABORATORY DATA WBC 7.4, RBC 4.73, hemoglobin 14.1, hematocrit 42.6, platelet count 190. Differential is normal. INR is 1. Sodium 142, potassium 3.4, chloride 107, carbon oxide 28.4, anion gap 7, BUN 27, creatinine 1.14, GFR 46, calcium 8.4. Troponin is less than 0.02. Total protein 6.4. Albumin 3.2. Lipase 115. TSH 3.570. Urine shows small leukocyte esterase, yellow and hazy, twice protein, trace occult blood. No culture is indicated. IMAGING Chest x-ray shows large hiatal hernia, otherwise unremarkable. CT of the head shows no acute intracranial abnormality. Chronic white matter changes are noted. Carotid ultrasound done this morning: No evidence of flow-limiting carotid stenosis. 2-D echo is pending. ASSESSMENT 1. TIA involving balance. 2. Acute kidney injury. 3. Recent fall with left shoulder injury. 4. Recurrent cystitis and UTI with urinary urgency and frequency. 5. Hypertension. 6. Hiatal hernia. 7. GERD. 8. Obesity. 9. History of sciatica and chronic low back pain. 10. Arthritis. 11. Dizziness with light-headed sensation. PLAN 1. Admit. 2. Will monitor her ECG for any dysrhythmias. She is borderline and bradycardic. Will adjust her medicines as needed. 3. 2-D echo is pending. 4. Will consult neurology for their expert opinion. The patient does have a history of TIAs. She is pending an MRI of the brain with contrast. 5. Place her on aspirin. 6. DVT prophylaxis with heparin. 7. The patient does have acute kidney. Will reconcile her medications, holding her Vasotec for now. 8. Will give her gentle hydration. 9. Check a sputum. The patient has been treated for a recent upper respiratory infection and still has a productive cough. 10. Protonix added. 11. The patient can be up out of bed but only with assistance due to her balance. This has been explained to her. 12. IV access maintained. 13. The patient's evaluation and testing will continue over the next 24 hours and depending on her findings we will evaluate the plan of care needed for her. 14. Will get PT and OT consult for any discharge planning needs and to evaluate her mobility and balance. 15. Will continue to follow. Dictated by: ADRI Antonio MD BORA Coburn/NADYA /10:23 AM /10:57 AM seen, examined by myself, Dr Queen, today 01/22/17 Discussed with patient TIA versus stroke Hypokalemia Neuro workup in progress GFR 47, avoid nonsteroidals Neurology following Discussed with nurse Discussed with mid level provider The exam, history, and the medical decision-making described in the above note were completed with the assistance of the mid-level provider. I reviewed the findings presented. I attest that I had a [id number] encounter with the patient on the same day, and personally performed and documented my assessment and findings in the medical record. NITO
--- NOTE | 2016-10-22 11:32 | MB ---
cc: [facility] DATE OF CONSULTATION 10/22/2016 DATE OF 1935 AGE 81 REASON FOR CONSULTATION Possible TIA. HISTORY OF PRESENT ILLNESS An 81-year-old woman who comes in feeling dizzy, weak when she stood up. She claims she still feels the same way. She had a similar event many years ago. She stated it was a mini-stroke. She denies the room spinning, denies weakness in her arms or legs. Apparently had a recent respiratory infection with some wheezing, coughing and a UTI, was on antibiotic but it was stopped. She is asking for her Sulindac for her osteoarthritis. She states she had a fall in [place] about a week ago and she had some pain in her left shoulder. PAST MEDICAL HISTORY 1. Hypertension. 2. Melanoma. 3. Osteoarthritis. 4. Reflux. 5. UTI. 6. Chronic back pain. 7. TIA/stroke in the past. PAST SURGICAL HISTORY 1. Appendectomy. 2. Cholecystectomy. 3. Tonsillectomy. 4. 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 SOCIAL HISTORY No tobacco, alcohol or drugs. ALLERGIES SULFA. CEPHALEXIN. ACTIVE MEDS 1. Medrol Dosepak. 2. Enalapril. 3. Ciprofloxacin, which she states she no longer takes. 4. Proventil. 5. Enalapril. 6. Hydrochlorothiazide. 7. She states she has also on Sulindac. PHYSICAL EXAMINATION VITALS: Temperature is 95.9, pulse 64, respiratory rate 20, blood pressure 137/69. NECK: Supple. There are no carotid bruits. HEART: Regular. NEUROLOGICAL EXAMINATION: She is awake and alert, fluent. Pupils are reactive. Visual anderson full. Face symmetrical. Tongue midline. Motor-cormier, I do not appreciate any drift or any significant leg lag. Toes downgoing. DTRs are 1+. Sensory is normal. Cerebellar - no past-pointing. Gait is withheld at this time. LABORATORY DATA Labs are reviewed. Her CBC is normal. Coag panel - PTT is 23. Chemistries - Potassium 3.4, BUN 27, creatinine 1.14, GFR 46, calcium 8.4, albumin 3.2. TSH 3.570. UA is hazy. Small leukocyte esterase. No cultures indicated. IMAGING STUDIES Carotid ultrasound did not show any high-grade stenosis. CT of the head did not show any acute findings. Chest x-ray - Large hiatal hernia, otherwise negative. IMPRESSION Possible TIA but also dizziness may be multifactorial. Certainly we will rule out central causes. She is pending an MRI of the brain, echo as well as I added an MRA [place] of [place]. RECOMMENDATIONS 1. Continue aspirin. 2. For her osteoarthritis, I would avoid NSAIDs. She is asking for her Sulindac but I would try Tylenol. 3. Her GFR is somewhat low. Hydrate her. 4. PT, OT evaluation. 5. Check a fasting lipid panel as well. 6. Depending on findings, further recommendations will be made. 7. Maintain telemetry for any dysrhythmia. Thank you. MD THANH Satnos/MANDI /10:49 AM /10:59 AM
--- NOTE | 2016-10-22 11:44 | EKG ---
Date Performed: 10/21/2016 Time Performed: 21:56:22 PTAGE: 81 years EKG: Sinus rhythm LOW QRS VOLTAGE IN PRECORDIAL LEADS INCOMPLETE RIGHT BUNDLE BRANCH BLOCK BORDERLINE ECG INTERPRETATI ON BASED ON A DEFAULT AGE OF 40 YEARS PREVIOUS TRACING 07/11/2015 Compared to the prior tracing, the patient is no longer havi ng bursts of supraventricular tachycardia. DOCTOR: Luis Aragon Interpretating Date/Time 10/22/2016 11:43:03
[2016-10-22 12:25] VITALS: BP 141/77; PULSE 70; RESP 20; TEMP 95.8; O2SAT 96
--- NOTE | 2016-10-22 12:48 | HHI.PR ---
Vitals/Results Vital Signs Vital Signs Date Time Temp Pulse Resp B/P Pulse Ox O2 Delivery O2 Flow Rate FiO2 10/22/16 12:25 95.8 70 20 141/77 96 10/22/16 08:27 95.9 64 20 137/69 96 10/22/16 06:40 95.3 55 21 158/81 98 10/22/16 02:26 63 18 142/78 96 Room Air 10/21/16 22:12 Room Air 10/21/16 22:11 98.2 64 18 142/76 99 CBC/BMP: 10/21/16 2220 10/21/16 2340 Lab Results Laboratory Tests Test 10/21/16 10/21/16 10/21/16 22:10 22:20 23:40 Urine Color YELLOW Urine Turbidity HAZY Urine pH 5.5 Urine Specific [place]ell 1.025 Urine Protein TRACE mg/dL Urine Glucose (UA) NEG mg/dL Urine Ketones NEG mg/dL Urine Occult Blood TRACE Urine Nitrite NEG Urine Bilirubin NEG Urine Urobilinogen LESS THAN 2.0 MG/DL Urine Leukocyte Esterase SMALL Urine RBC 10 /hpf Urine WBC 3 /hpf Urine Squamous Epithelial 4 /hpf Cells Urine Transitional Epithelial <1 /hpf Cells Urine Hyaline Casts 1 /lpf Urine Mucus FEW /lpf Microscopic Urinalysis Comment CULT NOT INDICATED White Blood Count 7.4 TH/MM3 Red Blood Count 4.73 MIL/MM3 Hemoglobin 14.1 GM/DL Hematocrit 42.6 % Mean Corpuscular Volume 90.1 FL Mean Corpuscular Hemoglobin 29.9 PG Mean Corpuscular Hemoglobin 33.2 % Concent Red Cell Distribution Width 12.8 % Platelet Count 190 TH/MM3 Mean Platelet Volume 9.1 FL Neutrophils (%) (Auto) 61.6 % Lymphocytes (%) (Auto) 27.1 % Monocytes (%) (Auto) 6.8 % Eosinophils (%) (Auto) 3.2 % Basophils (%) (Auto) 1.3 % Neutrophils # (Auto) 4.6 TH/MM3 Lymphocytes # (Auto) 2.0 TH/MM3 Monocytes # (Auto) 0.5 TH/MM3 Eosinophils # (Auto) 0.2 TH/MM3 Basophils # (Auto) 0.1 TH/MM3 CBC Comment DIFF FINAL Differential Comment Prothrombin Time 10.7 SEC Prothromb Time International 1.0 RATIO Ratio Activated Partial 23.0 SEC Thromboplast Time Sodium Level 142 MEQ/L Potassium Level 3.4 MEQ/L Chloride Level 107 MEQ/L Carbon Dioxide Level 28.4 MEQ/L Anion Gap 7 MEQ/L Blood Urea Nitrogen 27 MG/DL Creatinine 1.14 MG/DL Estimat Glomerular Filtration 46 ML/MIN Rate Random Glucose 98 MG/DL Calcium Level 8.4 MG/DL Magnesium Level 1.7 MG/DL Total Bilirubin 0.5 MG/DL Aspartate Amino Transf 20 U/L (AST/SGOT) Alanine Aminotransferase 17 U/L (ALT/SGPT) Alkaline Phosphatase 77 U/L Total Creatine Kinase 70 U/L Troponin I LESS THAN 0.02 NG/ML Total Protein 6.4 GM/DL Albumin 3.2 GM/DL Lipase 115 U/L Thyroid Stimulating Hormone 3.570 uIU/ML 3rd Gen Assessment/Plan Assessment/Plan Rule out TIA neurological event, appreciate input from neuro, we'll continue to evaluate, avoid NSAIDs, hydration continue, monitor for any dysrhythmias maintain telemetry Natali Price Oct 22, 2016 12:48 8. Obesity. 9. History of sciatica and chronic low back pain. 10. Arthritis. 11. Dizziness with light-headed sensation. PLAN Vital signs reviewed normal trends Labs reviewed Rule out TIA neurological event, appreciate input from neuro, we'll continue to evaluate, avoid NSAIDs, hydration continue, monitor for any dysrhythmias maintain telemetry 1. Admit. 2. Will monitor her ECG for any dysrhythmias. She is borderline and bradycardic. Will adjust her medicines as needed. 3. 2-D echo is pending. 4. Will consult neurology for their expert opinion. The patient does have a history of TIAs. She is pending an MRI of the brain with contrast. 5. Place her on aspirin. 6. DVT prophylaxis with heparin. 7. The patient does have acute kidney. Will reconcile her medications, holding her Vasotec for now. 8. Will give her gentle hydration. 9. Check a sputum. The patient has been treated for a recent upper respiratory infection and still has a productive cough. 10. Protonix added. 11. The patient can be up out of bed but only with assistance due to her balance. This has been explained to her. 12. IV access maintained. 13. The patient's evaluation and testing will continue over the next 24 hours and depending on her findings we will evaluate the plan of care needed for her. 14. Will get PT and OT consult for any discharge planning needs and to evaluate her mobility and balance. 15. Will continue to follow. Dictated by: ADRI Antonio Susan M. ARNP Oct 22, 2016 12:48
--- NOTE | 2016-10-22 13:43 | RADRPT ---
EXAM DATE/TIME: 10/22/2016 12:40 [facility] COMPARISON: No previous studies available for comparison. INDICATIONS : Recent fall, pain and crepitus in left shoulder MEDICAL HISTORY : Cerebrovascular disease. Cardiovascular disease. Gastroesophageal reflux disease. weakness, fall, pain and crepitus left shoulder SURGICAL HISTORY : Appendectomy. Cholecystectomy. Tubal ligation. ENCOUNTER: Initial ACUITY: 2 days PAIN SCORE: 7/10 LOCATION: Left shoulder FINDINGS: No definite fractures, or dislocations are identified. No definite lytic or sclerotic lesion is seen . The joint space is well maintained. CONCLUSION: Unremarkable study. Amber Nicole MD on October 22, 2016 at 13:40 Board Certified Radiologist. This report was verified electronically.
[2016-10-22] MEDS ORDERED: POTASSIUM CHLORIDE 10 MEQ CONTROLLED RELEASE TAB PO SCH (14:30)
[2016-10-22 16:02] VITALS: BP 186/80; PULSE 90; RESP 20; TEMP 95.6; O2SAT 96
[2016-10-22] MEDS ORDERED: ACETAMINOPHEN 325 MG TAB PO PRN (17:30)
[2016-10-22] MEDS ORDERED: ACETAMINOPHEN/HYDROcodone 325 MG/5 MG TAB PO PRN (17:30)
--- NOTE | 2016-10-22 17:32 | RADRPT ---
EXAM DATE/TIME: 10/22/2016 13:04 [facility] COMPARISON: No previous studies available for comparison. INDICATIONS : Dizziness. MEDICAL HISTORY : Hypertension. Gastroesophageal reflux disease. SURGICAL HISTORY : Appendectomy. Cholecystectomy. Tonsillectomy. ENCOUNTER: Subsequent ACUITY: 2 day PAIN SCORE: 0/10 LOCATION: cranial Please note a normal MRA of the brain does not entirely exclude the possibility of a small aneurysm, nor the possibility of distal intracranial vessel disease. TECHNIQUE: 3D time of flight MRA was performed. Source images, multiplanar STS MIP, and 3D volume MIP reconstru ctions were reviewed. FINDINGS: There is excellent visualization of the major intracranial arteries out to the second-order branch ve ssels. There is no evidence for aneurysm, vessel truncation or stenosis, and no evidence for vascula r malformation. CONCLUSION: Normal examination. Raffy Davis MD on October 22, 2016 at 17:29 Board Certified Radiologist. This report was verified electronically.
--- NOTE | 2016-10-22 17:34 | RADRPT ---
EXAM DATE/TIME: 10/22/2016 13:04 [facility] COMPARISON: No previous studies available for comparison. INDICATIONS : Dizziness. MEDICAL HISTORY : Hypertension. Gastroesophageal reflux disease. SURGICAL HISTORY : Appendectomy. Cholecystectomy. Tonsillectomy. ENCOUNTER: Subsequent ACUITY: 2 day PAIN SCORE: 0/10 LOCATION: cranial TECHNIQUE: Multiplanar, multisequence MRI of the brain was performed without contrast. FINDINGS: CEREBRUM: The ventricles are normal for age. No evidence of midline shift, mass lesion, hemorrhage or acute in farction. No extraaxial fluid collections are seen. The pituitary gland and suprasellar cistern are normal in configuration. WHITE MATTER: Mild patchy white matter T2 prolongation which appears benign and likely microvascular ischemic in et iology. POSTERIOR FOSSA: The cerebellum and brainstem are intact. The 4th ventricle is midline. The cerebellopontine angle is unremarkable. The cerebellar tonsils are normal in position. DIFFUSION IMAGING: No focal areas of restricted diffusion are seen. No evidence of acute infarction. EXTRACRANIAL: The visualized portions of the orbits and paranasal sinuses are unremarkable. CONCLUSION: No acute intracranial findings Raffy Davis MD on October 22, 2016 at 17:31 Board Certified Radiologist. This report was verified electronically.
[2016-10-22] MEDS: POTASSIUM CHLORIDE 10 MEQ CONTROLLED RELEASE TAB PO SCH (22:44)
--- NOTE | 2016-10-22 22:48 | ECHRPT ---
Indication: PERICARDIAL EFFUSION CONCLUSIONS Normal LV systolic function with estimated 50% Ejection Fraction No wall motion abnormalities Moderate tricuspid regurgitation. Moderate pulmonary hypertension No significant pericardial effusion BP: 158 / 81 HR: 55 Rhythm: Sinus MEASUREMENTS (Male / Female) Normal Values Technical Quality:Technically difficult study 2D ECHO LV Diastolic Diameter PLAX 5.1 cm 4.2 - 5.9 / 3.9 - 5.3 cm LV Systolic Diameter PLAX 3.8 cm IVS Diastolic Thickness 0.9 cm 0.6 - 1.0 / 0.6 - 0.9 cm LVPW Diastolic Thickness 0.9 cm 0.6 - 1.0 / 0.6 - 0.9 cm LV Relative Wall Thickness 0.3 LVOT Diameter 2.0 cm Aortic Root Diameter 3.0 cm LA Systolic Diameter LX 2.4 cm 3.0 - 4.0 / 2.7 - 3.8 cm M-MODE AV Cusp Separation MM 1.8 cm DOPPLER TR Peak Velocity 242.0 cm/s TR Peak Gradient 23.4 mmHg PV Peak Velocity 63.9 cm/s PV Peak Gradient 1.6 mmHg FINDINGS LEFT VENTRICLE Wall thickness is normal. Normal left ventricular size. The left ventricular systolic function is normal with an estimated ejection fraction in the range of 55-60%. PERICARDIUM No significant pericardial effusion. If any may be pericardial fat pad. Jaskaran Sweeney MD (Electronically Signed) Final Date:22 October 2016 22:47
[2016-10-23] VITALS (8 sets, daily range): BP systolic 128–146; BP diastolic 63–84; PULSE 62–79; RESP 20; TEMP 96–98.1; O2SAT 94–97
[2016-10-23] MEDS: SODIUM CHLOR 0.9% 1000 ML INJ 1,000 ML IV SCH ×2 (03:55→17:06)
[2016-10-23] MEDS: HEPARIN SODIUM - SQ 10,000 UNITS/ML VIAL SQ SCH (09:00)
[2016-10-23] MEDS: PANTOPRAZOLE SOD 40 MG DELAYED RELEASE TAB PO SCH (09:00)
[2016-10-23] MEDS: POTASSIUM CHLORIDE 10 MEQ CONTROLLED RELEASE TAB PO SCH ×2 (10:23→10:27)
[2016-10-23] MEDS: ASPIRIN 325 MG TAB PO SCH (10:23)
--- NOTE | 2016-10-23 10:55 | HHI.PR ---
Subjective Remarks oob in chair feels well asking to go home. Objective Vital Signs Date Time Temp Pulse Resp B/P Pulse Ox O2 Delivery O2 Flow Rate FiO2 10/23/16 06:03 146/72 10/23/16 04:13 76 10/23/16 04:00 97.2 76 20 97 10/23/16 01:00 97.0 62 20 128/63 95 10/22/16 16:02 95.6 90 20 186/80 96 10/22/16 12:25 95.8 70 20 141/77 96 I/O 10/22/16 10/22/16 10/22/16 10/23/16 10/23/16 10/23/16 07:00 15:00 23:00 07:00 15:00 23:00 Intake Total 960 ml 900 ml Balance 960 ml 900 ml Intake Oral 960 ml IV Total 900 ml # Voids 1 2 Result Diagram: 10/21/16 2220 10/21/16 2340 Imaging mri neg mra cow neg echo pending Objective Remarks awake alert fluent perrla motor grossly intact gait per PT. Assessment and Plan Assessment and Plan possible tia -check echo outpt holter asa qd statin if indicated d/c pending today if stable and echo ok. Shanell Loza MD Oct 23, 2016 10:55
--- NOTE | 2016-10-23 11:10 | HHI.PR ---
Subjective Subjective Remarks Sitting up in chair Wants to go home Mildly anxious over hospital stay Impulsive affect Afebrile Echo is pending (Natali Price) Review of Systems Constitutional Constitutional: Weakness (mostly with her balance no problems during hospital stay) Constitutional Remarks 10 point ROS done positives noted (Natali Price) Ears and Nose Ears and Nose Remarks In her ear disorders (Natali Price) Musculoskeletal MS Remarks Arthritis requesting her outpatient medicine, friend is supposed to bring to hospital (Natali Price) Neurologic Neurologic Remarks No symptoms of dizziness or weakness since hospital admission (Natali Price) Psychiatric Psychiatric: Anxiety (Natali Price) Vitals/Results Intake & Output 10/22/16 10/22/16 10/23/16 15:00 23:00 07:00 Intake Total 960 ml 900 ml Balance 960 ml 900 ml Intake Oral 960 ml IV Total 900 ml # Voids 2 Vital Signs Vital Signs Date Time Temp Pulse Resp B/P Pulse Ox O2 Delivery O2 Flow Rate FiO2 10/23/16 06:03 146/72 10/23/16 04:13 76 10/23/16 04:00 97.2 76 20 97 10/23/16 01:00 97.0 62 20 128/63 95 10/22/16 16:02 95.6 90 20 186/80 96 10/22/16 12:25 95.8 70 20 141/77 96 (Natali Price) CBC/BMP: 10/21/16 2220 10/21/16 2340 Imaging Remarks Last Impressions Shoulder X-Ray 10/22/16 0000 Signed Impressions: Service Date/Time: Saturday, October 22, 2016 12:40 - CONCLUSION: Unremarkable study. Amber Nicole MD Head Magnetic Resonance Angiography 10/22/16 0000 Signed Impressions: Service Date/Time: Saturday, October 22, 2016 13:04 - CONCLUSION: Normal examination. Raffy Davis MD Carotid Artery Ultrasound 10/22/16 0000 Signed Impressions: Service Date/Time: Saturday, October 22, 2016 08:38 - CONCLUSION: No evidence of flow-limiting carotid stenosis. Raffy Davis MD Brain MRI 10/22/16 0000 Signed Impressions: Service Date/Time: Saturday, October 22, 2016 13:04 - CONCLUSION: No acute intracranial findings Raffy Davis MD Head CT 10/21/16 2249 Signed Impressions: Service Date/Time: Friday, October 21, 2016 23:19 - CONCLUSION: No acute intracranial abnormality. Chronic white matter changes are again noted. Raffy Mcneil MD Chest X-Ray 10/21/164 Signed Impressions: Service Date/Time: Friday, October 21, 2016 22:09 - CONCLUSION: Large hiatal hernia otherwise negative. Zeus Aden MD FACR Current Medications Administered Medications Medications (Trade) Dose Ordered Sig/Carla Route PRN Reason Start Time Stop Time Status Last Admin Dose Admin Sodium Chloride (NS 1000 ml Inj) 1,000 ml @ 75 mls/hr [id number] IV 10/22/16 01:15 10/22/16 01:40 Aspirin (Aspirin) 325 mg DAILY PO 10/22/16 09:00 10/23/16 10:23 Heparin Sodium (Porcine) (Heparin Inj) 5,000 units BID SQ 10/22/16 09:00 10/22/16 09:58 Hydrochlorothiazide (Hydrodiuril) 25 mg DAILY PO 10/22/16 09:00 Hold 10/22/16 09:57 Pantoprazole Sodium (Protonix) 40 mg DAILY PO 10/22/16 09:00 10/22/16 09:57 Potassium Chloride (KCl) 30 meq BID PO 10/22/16 21:00 10/22/16 22:44 (Natali Price) Physical Exam General General Appearance: No Acute Distress, Anxious (wants to go home), Obese ( Natali Price) Eyes Eye Exam: Pupils Reactive Eye Remarks Right eye cataract (Natali Price) Ears & Nose Ears & Nose Exam: Nasal Mucosa Lamont (Natali Price) Throat Throat Exam: Oral Mucosa Lamont & Moist (Natali Price) Neck Neck Exam: Neck Supple (Natali Price) Pulmonary Resp Exam: Clear Bilaterally (Knob Noster,Natali M. GLASS INSERTER) Cardiology CV Exam: Regular (Natali PriceP) Gastrointestinal/Abdomen GI Exam: Soft, Non-Tender, Bowel Sounds Present (Natali Price GLASS INSERTER) Genitourinary Exam: Clear Urine (Natali Price GLASS INSERTER) Musculoskeletal MS Exam: Joints Intact MS Remarks Left shoulder x-ray shows no fracture, positive for crepitus (Natali PriceP) Integumentary Skin Exam: Warm, Dry, Intact (Natali Price GLASS INSERTER) Extremeties Extremities Exam: No Edema (Natali Price GLASS INSERTER) Neurologic Neuro Exam: Awake, Oriented, Speech Clear, Moving All Extremities (Natali Price GLASS INSERTER) Assessment/Plan Assessment/Plan 1. TIA involving balance. 2. Acute kidney injury. 3. Recent fall with left shoulder injury. 4. Recurrent cystitis and UTI with urinary urgency and frequency. 5. Hypertension. 6. Hiatal hernia. 7. GERD. 8. Obesity. 9. History of sciatica and chronic low back pain. 10. Arthritis. 11. Dizziness with light-headed sensation. 12. History of inner ear disorder, lt ear moderate deafness vitals signs reviewed,, trends are normal Labs and testing reviewed, BMP pending for potassium check, MRI okay, left shoulder no fracture Acute kidney injury essentially unchanged, patient requested IV fluids be taken down, will start them back and explained to her we needed to hydrate her Possible TIA, appreciate neuro following and consult, waiting on echocardiogram , so far no further signs and symptoms of neurological deficits Patient is requesting to go home, Up in chair, denies any problems ambulate and or with her balance, physical therapy to eval her gait and balance, recommendations since patient lives alone and is requesting to go home Multi comorbidities monitored with medical management, medications restarted except for her outpatient arthritis medicine, okay for patient to bring home med since it is unavailable in the hospital DVT prophylaxis As directed prophylaxis Inner ear disorder, patient states she has had problems with her ears and has been followed on an outpatient basis, states she has very minimal hearing in her left ear, possible balance issues could be secondary to her inner ear disorders, advised patient to have walker or something close by with ambulating to hold onto, denies any dizziness or syncopal episodes in the hospital Chronic pain medical management Discussed with nurse, restart IV fluids for now Discussed with patient, need for hydration Discussed with Dr. Scott, seen on his behalf She is requesting discharge, 2-D echo is pending, if echo okay and patient is stable without symptoms, could follow-up as an outpatient with neurology according to the note (Natali Price) Assessment/Plan seen, examined by myself, Dr Scott, today Discussed with patient Discharge home today Home health physical therapy is arranged No evidence of a stroke Echocardiogram was unremarkable Discussed with mid level provider The exam, history, and the medical decision-making described in the above note were completed with the assistance of the mid-level provider. I reviewed the findings presented. I attest that I had a [id number] encounter with the patient on the same day, and personally performed and documented my assessment and findings in the medical record. Discharge Minutes: 40 (Buddy Scott MD) Natali Price Oct 23, 2016 11:10 Buddy Scott MD Oct 23, 2016 18:32
[2016-10-23 11:28] LABS: BICARBONATE 28.7 MEQ/L (21.0-32.0); POTASSIUM 3.4 MEQ/L (3.5-5.1)
[2016-10-23 11:32] LABS: HDL CHOLESTEROL 35.3 MG/DL (40.0-60.0)
--- NOTE | 2016-10-23 14:52 | HHI.FF ---
Face to Face Verification Diagnosis: (1) Gait problem (2) Chronic low back pain (3) Chronic fatigue syndrome (4) Myalgia Physical Therapy Order: Evaluate and Treat Home Health Nursing Order: Medical education Medication education-adverse effect Terry Cloth Cutter Hand Order: To Evaluate: Living conditions/environment I have seen patient Nuvia Carnes on 10/23/16. My clinical findings support the need for the requested home health care services because: Ltd mobility - disease progression I certify that my clinical findings support that this patient is homebound because: Unsteady gait/balance Buddy Scott MD Oct 23, 2016 14:52
[2016-10-23] MEDS ORDERED: POTA-243 PO (15:02)
[2016-10-23] MEDS ORDERED: ASPI325T PO (15:02)
[2016-10-23] MEDS ORDERED: ACET1TAB86 PO (15:02)
[2016-10-23] MEDS ORDERED: HYDR25TA5 PO (15:02)
[2016-10-23 15:13] LABS: BICARBONATE 28.7 MEQ/L (21.0-32.0); POTASSIUM 3.7 MEQ/L (3.5-5.1)
--- NOTE | 2016-10-23 19:01 | ECHRPT ---
Indication: Coronary Atherosclerosis CONCLUSIONS Normal left ventricular size and wall thickness. The left ventricular systolic function is normal wi th an estimated ejection fraction of 55% The left atrial size is upper limits of normal. Aortic valve sclerosis is present. There is mild to moderate tricuspid valve regurgitation. The estimated pulmonary arterial pressure is 32 mmHg. BP: 128 / 63 HR: 62 Rhythm: MEASUREMENTS (Male / Female) Normal Values Technical Quality: 2D ECHO LV Diastolic Diameter PLAX 4.6 cm 4.2 - 5.9 / 3.9 - 5.3 cm LV Systolic Diameter PLAX 3.6 cm IVS Diastolic Thickness 1.0 cm 0.6 - 1.0 / 0.6 - 0.9 cm LVPW Diastolic Thickness 0.7 cm 0.6 - 1.0 / 0.6 - 0.9 cm LV Relative Wall Thickness 0.4 RV Internal Dim ED PLAX 2.2 cm LA Systolic Diameter LX 3.4 cm 3.0 - 4.0 / 2.7 - 3.8 cm LA Volume Index 16.7 cm/m 16 - 28 cm/m M-MODE Aortic Root Diameter MM 3.0 cm AV Cusp Separation MM 1.8 cm DOPPLER MV Peak Velocity 134.0 cm/s MV Peak Gradient 7.2 mmHg MV Mean Velocity 77.4 cm/s MV Mean Gradient 3.0 mmHg Mitral E Point Velocity 65.2 cm/s Mitral A Point Velocity 89.8 cm/s Mitral E to A Ratio 0.7 LV E' Lateral Velocity 8.5 cm/s Mitral E to LV E' Lateral Ratio 7.7 LV E' Septal Velocity 4.2 cm/s Mitral E to LV E' Septal Ratio 15.6 TR Peak Velocity 258.0 cm/s TR Peak Gradient 26.6 mmHg FINDINGS LEFT VENTRICLE Normal left ventricular size and wall thickness. The left ventricular systolic function is normal wi th an estimated ejection fraction of 55%. Left ventricular diastolic function parameters are normal. RIGHT VENTRICLE Normal right ventricular size and systolic function. LEFT ATRIUM The left atrial size is upper limits of normal. RIGHT ATRIUM The right atrial size is normal. ATRIAL SEPTUM Normal atrial septal thickness without atrial level shunting by limited color doppler interrogation. AORTA The aortic root and proximal ascending aorta are normal in size on limited imaging. MITRAL VALVE Structurally normal mitral valve. No mitral valve stenosis or regurgitation. AORTIC VALVE Aortic valve sclerosis is present. TRICUSPID VALVE There is mild to moderate tricuspid valve regurgitation. The estimated pulmonary arterial pressure is 32 mmHg. PULMONARY VALVE The pulmonary valve is not well visualized. VESSELS The inferior vena cava is normal in size. PERICARDIUM No pericardial effusion. Melanie Nolasco MD, FACC (Electronically Signed) Final Date:23 October 2016 19:00
== END 2016-10-23 18:54 | disposition home health service (06) ==
LOC: NEPC 21:35 → NEDA 10-22 00:45 → N05A 10-22 05:40
PROVIDERS: ADMIT Specialist; ATTEND Specialist
DX: R53.1 Weakness (principal); R42 Dizziness and giddiness; Z86.73 Personal history of transient ischemic attack (TIA), and cerebral infarction without residual deficits; I10 Essential (primary) hypertension; R05 Cough; K21.9 Gastro-esophageal reflux disease without esophagitis; K44.9 Diaphragmatic hernia without obstruction or gangrene; M19.90 Unspecified osteoarthritis, unspecified site; G45.9 Transient cerebral ischemic attack, unspecified; N17.9 Acute kidney failure, unspecified; E66.9 Obesity, unspecified; Z68.36 Body mass index [BMI] 36.0-36.9, adult; M25.512 Pain in left shoulder; M24.812 Other specific joint derangements of left shoulder, not elsewhere classified; N30.20 Other chronic cystitis without hematuria; R39.15 Urgency of urination; Z87.891 Personal history of nicotine dependence; Z79.899 Other long term (current) drug therapy
CPT/HCPCS: 70450; 70544; 70551; 71010; 73030; 80048; 80053; 80061; 81001; 82550; 83690; 83735; 84443; 84484; 85025; 85610; 85730; 93005; 93306; 93308; 93880; 96360; 97162; 99285; G0378; J1644; J7030

== ENCOUNTER 2016-12-10 06:42 | Emergency (ER) | payer MEDICARE, MEDICAID ==
[~2016-12-10] VITALS: Ht 157.5 cm; Wt 87.0 kg
[~2016-12-10 06:42] MED LIST changes: +ACET1TAB86 PO; +ASPI325T PO; -CIPR500T2 PO; -MEDR4PAK PO; +POTA-243 PO
[2016-12-10 06:44] VITALS: BP 136/87; PULSE 80; RESP 20; TEMP 97.5; O2SAT 95
[2016-12-10] MEDS ORDERED: CIPR-9 PO (07:17)
--- NOTE | 2016-12-10 07:17 | PD ---
HPI Chief Complaint: Complaint Time Seen by Provider: 07:08 Travel History International Travel<30 days: No Contact w/Intl Traveler<30days: No Traveled to known affect area: No History of Present Illness HPI 81-year-old female complains of dysuria and nausea. Patient states that the symptoms started yesterday. Patient denies any headache. Patient denies any chest pain or shortness of breath. Patient denies abdominal pain. Patient states that she had mild aching low back pain. Patient denies any vaginal discharge or bleeding. Patient denies any fever chills. Patient has history UTI in the past requesting Cipro. [facility] Past Medical History Arthritis: Yes Asthma: No Autoimmune Disease: No Blood Disorders: No Anxiety: No Depression: No Heart Rhythm Problems: No Cancer: Yes (MELANOMA) Cardiac Catheterization: No Cardiovascular Problems: Yes (HTN) High Cholesterol: No Chemotherapy: No Chest Pain: No Congestive Heart Failure: No COPD: No Cerebrovascular Accident: Yes Diabetes: No Diminished Hearing: No Endocrine: No Gastrointestinal Disorders: Yes GERD: Yes Glaucoma: No Genitourinary: Yes (UTI) Headaches: Yes Hepatitis: No Hiatal Hernia: No Hypertension: Yes Immune Disorder: No Implanted Vascular Access Dvce: No Kidney Stones: No Musculoskeletal: Yes (chronic back pain) Neurologic: Yes Psychiatric: No Reproductive: No Respiratory: Yes Immunizations Current: No Migraines: No Myocardial Infarction: No Radiation Therapy: No Renal Failure: No Seizures: No Sickle Cell Disease: No Sleep Apnea: No Thyroid Disease: No Ulcer: No PNEUMOCCOCAL Vaccine (Year): 2 Menopausal: Yes : 7 Para: 4 Tubal Ligation: Yes Past Surgical History Abdominal Surgery: Yes AICD: No Appendectomy: Yes Arteriovenous Shunt: No Cardiac Surgery: No Cholecystectomy: Yes Coronary Artery Bypass Graft: No Ear Surgery: No Endocrine Surgery: No Eye Surgery: No Gynecologic Surgery: Yes Insulin Pump: No Joint Replacement: No Neurologic Surgery: No Pacemaker: No Thoracic Surgery: No Tonsillectomy: Yes Other 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) Social History Alcohol Use: No Tobacco Use: No Substance Use: No Allergies-Medications (Allergen,Severity, Reaction): Coded Allergies: Sulfa (Sulfonamide Antibiotics) (Unverified Allergy, Severe, ITCHING, 12/10) cephalexin (Unverified Allergy, Unknown, rash, 12/10/16) Reported Meds & Prescriptions Reported Meds & Active Scripts Active Klor-Con 10 (Potassium Chloride) 10 Meq Tab 30 Meq PO DAILY Hydrochlorothiazide 25 Mg Tab 12.5 Mg PO DAILY Aspirin 325 Mg Tab 81 Mg PO DAILY Eq Acetaminophen (Acetaminophen) 325 Mg Tab 650 Mg PO Q4H PRN Enalapril (Enalapril Maleate) 20 Mg Tab 20 Mg PO DAILY Proventil Hfa 6.7 GM Inh (Albuterol Sulfate) 90 Mcg/Act Aer 1 Puff INH Q4H PRN Reported Enalapril (Enalapril Maleate) 20 Mg Tab 20 Mg PO DAILY Review of Systems General / Constitutional: No: Fever Eyes: No: Visual changes HENT: No: Headaches Cardiovascular: No: Chest Pain or Discomfort Respiratory: No: Shortness of Breath Gastrointestinal: No: Abdominal Pain Genitourinary: Positive: Dysuria Musculoskeletal: No: Pain Skin: No Rash Neurologic: No: Weakness Psychiatric: No: Depression Endocrine: No: Polydipsia Hematologic/Lymphatic: No: Easy Bruising Physical Exam Narrative GENERAL: Well-nourished, well-developed patient. SKIN: Focused skin assessment warm/dry. HEAD: Normocephalic. EYES: No scleral icterus. No injection or drainage. NECK: Supple, trachea midline. No JVD or lymphadenopathy. CARDIOVASCULAR: Regular rate and rhythm without murmurs, gallops, or rubs. RESPIRATORY: Breath sounds equal bilaterally. No accessory muscle use. GASTROINTESTINAL: Abdomen soft, non-tender, nondistended. MUSCULOSKELETAL: No cyanosis, or edema. BACK: Nontender without obvious deformity. No CVA tenderness. Neurologic exam normal. Data Data Last Documented VS Vital Signs Date Time Temp Pulse Resp B/P (MAP) Pulse Ox O2 Delivery O2 Flow Rate FiO2 12/10/16 06:44 97.5 80 20 136/87 (103) 95 Room Air Orders Orders Urinalysis - C+S If Indicated (12/10/16 07:10) MDM Medical Decision Making Medical Screen Exam Complete: Yes Emergency Medical Condition: Yes Differential Diagnosis Differential diagnosis including urethritis, UTI, pyelonephritis. Narrative Course 81-year-old female with dysuria and history of UTI in the past. Diagnosis Primary Impression: UTI (urinary tract infection) Qualified Codes: N30.00 - Acute cystitis without hematuria Patient Instructions: General Instructions Additional Instructions: Cipro as directed. Follow-up with personal physician. Return if worse. Med/Other Pt SpecificInfo: Prescription(s) given Scripts Ciprofloxacin (Cipro) 500 Mg Tab 500 MG PO BID for Infection, #14 TAB 0 Refills Prov: Kadeem Acuña MD 12/10/16 Disposition: 01 DISCHARGE HOME Condition: Stable Kadeem Acuña MD Dec 10, 2016 07:17
[2016-12-10 07:49] LABS: BACTERIA, URINE OCC /hpf; BLOOD, URINE TRACE (NEG); COMMENT (UR) CULT NOT INDICATED; CULTURE IF INDICATED CULT NOT INDICATED; GLUCOSE,URINE NEG (NEG); KETONE, URINE NEG (NEG); MUCUS URINE FEW /lpf (OCC); NITRITE,URINE NEG (NEG); PH, URINE 5.5 (5.0-8.5); SQUAMOUS EPITHELIAL CELL URINE 5 /hpf (0-5); URINE COLOR YELLOW (YELLW/STRAW)
== END 2016-12-10 08:10 | disposition home or self-care (01) ==
LOC: NEPE 06:42
DX: N39.0 Urinary tract infection, site not specified (principal); M13.80 Other specified arthritis, unspecified site; I10 Essential (primary) hypertension; K21.9 Gastro-esophageal reflux disease without esophagitis; Z85.820 Personal history of malignant melanoma of skin; Z86.73 Personal history of transient ischemic attack (TIA), and cerebral infarction without residual deficits; Z79.899 Other long term (current) drug therapy; Z88.2 Allergy status to sulfonamides; Z88.8 Allergy status to other drugs, medicaments and biological substances
CPT/HCPCS: 81001; 99283

== ENCOUNTER 2017-01-20 20:13 | Observation (INO) | payer MEDICARE, MEDICAID ==
[~2017-01-20] VITALS: Ht 157.5 cm; Wt 85.0 kg
[~2017-01-20 20:13] MED LIST changes: +CIPR-9 PO
[2017-01-20 20:20] VITALS: BP 121/67; PULSE 108; RESP 16; TEMP 99.6; O2SAT 92
[2017-01-20] MEDS ORDERED: ACETAMINOPHEN 325 MG TAB PO ONE (20:45)
[2017-01-20] MEDS ORDERED: PIPERACIL-TAZO 4.5 GM PREMIX 100 ML IV ONE (20:45)
--- NOTE | 2017-01-20 20:53 | PD ---
HPI Chief Complaint: General Weakness Time Seen by Provider: 20:40 Travel History International Travel<30 days: No Contact w/Intl Traveler<30days: No Traveled to known affect area: No History of Present Illness HPI 81-year-old female presents to the emergency department by EMS transport from home for evaluation of generalized weakness. Patient states over the past couple days she's noticed a nonproductive congested cough and some ear discomfort and last evening severe crampy abdominal pain as well as some intermittent loose stool that is not melanotic or grossly bloody. No report of chest pain or shortness of breath. No report of hematemesis coffee-ground emesis or bilious emesis. Patient has not had the flu shot. Patient states yesterday she was ambulatory and moved independently as her normal and then this morning noticed generalized weakness and as the day progressed increasing weakness such that she could not stand on her own to legs. Patient states that she called 911 and upon their arrival they had to assist her to the bathroom and then assist her to the EMS stretcher to be brought to the emergency room. According to EMS report patient had a temperature 100.3F no antipyretics were administered. Patient states she has had subjective fever and has had chills over the past several days. Last antibiotic use was in November for urinary tract infection at which time she was given a prescription for Cipro. Patient reports frequent urinary tract infections and frequently treated with Cipro antibiotic. Patient does not report any other complaints no report of severe sudden onset headache sinus pressure drainage sore throat fall upper extremity numbness tingling or weakness change in speech change in mentation difficulty swallowing no report of flank pain or dysuria. No report of skin rash or joint swelling. Current discomfort is 0/10 in intensity. PFSH Past Medical History Narrative Medical Arthritis, recurrent urinary tract infections, right melanoma, CVA/TIA, gastritis, hypertension, headaches; tubal ligation, appendectomy, cholecystectomy, partial mandible excision secondary to osteomyelitis; no tobacco use; nursing notes reviewed Arthritis: Yes Asthma: No Autoimmune Disease: No Blood Disorders: No Anxiety: No Depression: No Heart Rhythm Problems: No Cancer: Yes (MELANOMA) Cardiac Catheterization: No Cardiovascular Problems: Yes (HTN) High Cholesterol: No Chemotherapy: No Chest Pain: No Congestive Heart Failure: No COPD: No Cerebrovascular Accident: Yes Diabetes: No Diminished Hearing: No Endocrine: No Gastrointestinal Disorders: Yes GERD: Yes Glaucoma: No Genitourinary: Yes (UTI) Headaches: Yes Hepatitis: No Hiatal Hernia: No Hypertension: Yes Immune Disorder: No Implanted Vascular Access Dvce: No Kidney Stones: No Musculoskeletal: Yes (chronic back pain) Neurologic: Yes Psychiatric: No Reproductive: No Respiratory: Yes Immunizations Current: No Migraines: No Myocardial Infarction: No Radiation Therapy: No Renal Failure: No Seizures: No Sickle Cell Disease: No Sleep Apnea: No Thyroid Disease: No Ulcer: No PNEUMOCCOCAL Vaccine (Year): 2 ?: Not Menopausal: Yes : 7 Para: 4 Miscarriage: 3 Tubal Ligation: Yes Past Surgical History Abdominal Surgery: Yes AICD: No Appendectomy: Yes Arteriovenous Shunt: No Cardiac Surgery: No Cholecystectomy: Yes Coronary Artery Bypass Graft: No Ear Surgery: No Endocrine Surgery: No Eye Surgery: No Gynecologic Surgery: Yes Insulin Pump: No Joint Replacement: No Neurologic Surgery: No Pacemaker: No Thoracic Surgery: No Tonsillectomy: Yes Other 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) Social History Alcohol Use: No Tobacco Use: No Substance Use: No Allergies-Medications (Allergen,Severity, Reaction): Coded Allergies: Sulfa (Sulfonamide Antibiotics) (Unverified Allergy, Severe, ITCHING, 12/10) cephalexin (Unverified Allergy, Unknown, rash, 12/10/16) Reported Meds & Prescriptions Reported Meds & Active Scripts Active Cipro (Ciprofloxacin HCl) 500 Mg Tab 500 Mg PO BID Klor-Con 10 (Potassium Chloride) 10 Meq Tab 30 Meq PO DAILY Hydrochlorothiazide 25 Mg Tab 12.5 Mg PO DAILY Aspirin 325 Mg Tab 81 Mg PO DAILY Eq Acetaminophen (Acetaminophen) 325 Mg Tab 650 Mg PO Q4H PRN Enalapril (Enalapril Maleate) 20 Mg Tab 20 Mg PO DAILY Proventil Hfa 6.7 GM Inh (Albuterol Sulfate) 90 Mcg/Act Aer 1 Puff INH Q4H PRN Reported Sulindac 200 Mg Tab 200 Mg PO BID Enalapril (Enalapril Maleate) 20 Mg Tab 20 Mg PO DAILY Review of Systems Except as stated in HPI: all other systems reviewed are Neg General / Constitutional: Positive: Fever (subjective per patient; 100.3F per EMS), Chills Eyes: No: Visual changes HENT: Positive: Congestion, Earache, No: Headaches, Neck Stiffness, Neck Pain Respiratory: Positive: Cough, No: Shortness of Breath Gastrointestinal: Positive: Diarrhea, Abdominal Pain (occasional intermittent) , No: Nausea, Vomiting Genitourinary: No: Dysuria, Flank Pain Musculoskeletal: No: Myalgias, Arthralgias Skin: No Rash Neurologic: Positive: Weakness, Focal Abnormalities, No: Dizziness, Syncope, Coordination Problem, Headache, Change in Mentation, Slurred Speech, Paresthesia , Incontinence, Sensory Disturbance Psychiatric: No: Anxiety Endocrine: No: Heat Intolerance Hematologic/Lymphatic: No: Easy Bruising Physical Exam Narrative GENERAL: Well-developed well-nourished female in no acute distress no respiratory distress;T: 99.6F SKIN: Warm and dry.; GCS 15. HEAD: Atraumatic. Normocephalic. EYES: Pupils equal and round. No scleral icterus. No injection or drainage. ENT: No nasal bleeding or discharge. Mucous membranes pink and moist. NECK: Trachea midline. No JVD. CARDIOVASCULAR: Regular rate and rhythm. RESPIRATORY: No accessory muscle use. Clear to auscultation. Breath sounds equal bilaterally. GASTROINTESTINAL: Abdomen soft, non-tender, nondistended. Hepatic and splenic margins not palpable. MUSCULOSKELETAL: Extremities without clubbing, cyanosis, or edema. No obvious deformities. NEUROLOGICAL: Awake and alert. No obvious cranial nerve deficits. Motor grossly within normal limits. Five out of 5 muscle strength in the arms and legs. Normal speech. PSYCHIATRIC: Appropriate mood and affect; insight and judgment normal. Data Data Last Documented VS Vital Signs Date Time Temp Pulse Resp B/P (MAP) Pulse Ox O2 Delivery O2 Flow Rate FiO2 01/21/17 00:00 98.6 66 19 121/61 (81) 100 Nasal Cannula 2.00 Orders Orders Electrocardiogram (01/20/17 20:40) Complete Blood Count With Diff (01/20/17 20:40) Comprehensive Metabolic Panel (01/20/17 20:40) Prothrombin Time / Inr (Pt) (01/20/17 20:40) Act Partial Throm Time (Ptt) (01/20/17 20:40) Lactic Acid Sepsis Protocol (01/20/17 20:40) Magnesium (Mg) (01/20/17 20:40) Lipase (01/20/17 20:40) Ckmb (Isoenzyme) Profile (01/20/17 20:40) Troponin I (01/20/17 20:40) Urinalysis - C+S If Indicated (01/20/17 20:40) Influenzae A/B Antigen (01/20/17 20:40) Blood Culture (01/20/17 20:40) Chest, Single Ap (01/20/17 20:40) Blood Glucose (01/20/17 20:40) Ecg Monitoring (01/20/17 20:40) Iv Access Insert/Monitor (01/20/17 20:40) Oximetry (01/20/17 20:40) Acetaminophen (Tylenol) (01/20/17 20:45) Ct Abd/Pel W Iv Contrast(Rout) (01/20/17 20:40) C Diff Toxin Pcr (01/20/17 20:40) Cath For Specimen (01/20/17 20:40) Piperacil-Tazo 4.5 Gm Premix (Zosyn 4.5 (01/20/17 20:45) Sodium Chlorid 0.9% 500 Ml Inj (Ns 500 M (01/20/17 21:15) Iohexol 350 Inj (Omnipaque 350 Inj) (01/20/17 23:06) Admit Order (Ed Use Only) (01/21/17 ) ^ Saline Lock (01/21/17 01:44) Resp Oxygen Yayo C Titrat 1-4 L (01/21/17 ) Notify Dr: Other (01/21/17 01:44) Sodium Chloride 0.9% Flush (Ns Flush) (01/21/17 09:00) Sodium Chloride 0.9% Flush (Ns Flush) (01/21/17 01:45) Labs Laboratory Tests Test 01/20/17 20:44 01/20/17 21:00 01/20/17 21:20 White Blood Count 10.6 TH/MM3 Red Blood Count 4.99 MIL/MM3 Hemoglobin 15.2 GM/DL Hematocrit 44.6 % Mean Corpuscular Volume 89.3 FL Mean Corpuscular Hemoglobin 30.4 PG Mean Corpuscular Hemoglobin Concent 34.0 % Red Cell Distribution Width 12.9 % Platelet Count 194 TH/MM3 Mean Platelet Volume 8.3 FL Neutrophils (%) (Auto) 92.1 % Lymphocytes (%) (Auto) 3.6 % Monocytes (%) (Auto) 3.9 % Eosinophils (%) (Auto) 0.0 % Basophils (%) (Auto) 0.4 % Neutrophils # (Auto) 9.8 TH/MM3 Lymphocytes # (Auto) 0.4 TH/MM3 Monocytes # (Auto) 0.4 TH/MM3 Eosinophils # (Auto) 0.0 TH/MM3 Basophils # (Auto) 0.0 TH/MM3 CBC Comment DIFF FINAL Differential Comment Blood Urea Nitrogen 17 MG/DL Creatinine 1.19 MG/DL Random Glucose 124 MG/DL Total Protein 7.3 GM/DL Albumin 3.6 GM/DL Calcium Level 9.0 MG/DL Magnesium Level 2.0 MG/DL Alkaline Phosphatase 123 U/L Aspartate Amino Transf (AST/SGOT) 84 U/L Alanine Aminotransferase (ALT/SGPT) 89 U/L Total Bilirubin 0.9 MG/DL Sodium Level 138 MEQ/L Potassium Level 3.4 MEQ/L Chloride Level 101 MEQ/L Carbon Dioxide Level 27.0 MEQ/L Anion Gap 10 MEQ/L Estimat Glomerular Filtration Rate 43 ML/MIN Lactic Acid Level 1.0 mmol/L Total Creatine Kinase 57 U/L Troponin I LESS THAN 0.02 NG/ML Lipase 58 U/L Prothrombin Time 11.3 SEC Prothromb Time International Ratio 1.0 RATIO Activated Partial Thromboplast Time 26.4 SEC Urine Color YELLOW Urine Turbidity CLEAR Urine pH 8.0 Urine Specific Okay 1.017 Urine Protein TRACE mg/dL Urine Glucose (UA) NEG mg/dL Urine Ketones NEG mg/dL Urine Occult Blood TRACE Urine Nitrite NEG Urine Bilirubin NEG Urine Urobilinogen LESS THAN 2.0 MG/DL Urine Leukocyte Esterase NEG Urine RBC 19 /hpf Urine WBC 3 /hpf Urine Squamous Epithelial Cells 1 /hpf Microscopic Urinalysis Comment CATH-CULT NOT IND MDM Medical Decision Making Medical Screen Exam Complete: Yes Emergency Medical Condition: Yes Medical Record Reviewed: Yes Interpretation(s) EKG: Sinus tachycardia rate [address] elevation or ectopy noted Last Impressions Chest X-Ray 01/20/172039 Signed Impressions: Service Date/Time: Friday, January 20, 2017 20:48 - CONCLUSION: 1. No acute cardiopulmonary disease. 2. Hiatal hernia Joshua Rashid MD Abdomen/Pelvis CT 01/20/172039 Signed Impressions: Service Date/Time: Friday, January 20, 2017 22:58 - CONCLUSION: Gallstones. Hiatal hernia. Parapelvic renal cysts. No definite acute findings. Raffy Davis MD CBC & BMP Diagram 01/20/17 20:44 Total Protein 7.3, Albumin 3.6, Calcium Level 9.0, Magnesium Level 2.0, Alkaline Phosphatase 123 H, Aspartate Amino Transf (AST/SGOT) 84 H, Alanine Aminotransferase (ALT/SGPT) 89 H, Total Bilirubin 0.9 Differential Diagnosis Febrile illness, sepsis, UTI, pneumonia, colitis, diverticulitis, TIA Narrative Course Patient placed on accounts clerk IV access obtained specimens collected and sent for resulting in view of history of nonproductive cough fever frequent urinary tract infections and lower abdominal cramping pain we'll cover broad- spectrum with Zosyn 4.5 g IV piggyback after obtaining specimens and blood culture also obtain urine specimen by mini catheter. EKG sinus rhythm no acute elevation or injury pattern change noted Patient presents with febrile illness of unclear etiology and generalized weakness; patient is otherwise stable at this time will place to observation status case discussed with on-call [facility] hospitalist with recommendation to admit to and/or Physician Communication Physician Communication discussed with Srikanth Rothman obs to Dr Peters Diagnosis Primary Impression: Febrile illness Additional Impression: Generalized weakness Admitting Information Admitting Physician Requests: Observation Tina Bryan MD Jan 20, 2017 20:53
[2017-01-20 20:58] LABS: AUTOMATED NEUTROPHIL # 9.8 TH/MM3 (1.8-7.7); BASOPHIL % 0.4 % (0.0-2.0); HEMATOCRIT 44.6 % (35.0-46.0); HEMO FLAGS DIFF FINAL; LYMPH % 3.6 % (9.0-44.0); LYMPHOCYTE # 0.4 TH/MM3 (1.0-4.8); MEAN CELL VOLUME 89.3 FL (80.0-100.0); MEAN CORPUSCULAR HEMOGLOBIN 30.4 PG (27.0-34.0); MONO % 3.9 % (0.0-8.0); NEUT % 92.1 % (16.0-70.0); PLATELET COUNT 194 TH/MM3 (150-450); RED BLOOD COUNT 4.99 MIL/MM3 (4.00-5.30); RED CELL DISTRIBUTION WIDTH 12.9 % (11.6-17.2); WHITE BLOOD COUNT 10.6 TH/MM3 (4.0-11.0)
--- NOTE | 2017-01-20 21:14 | RADRPT ---
EXAM DATE/TIME: 01/20/2017 20:48 [facility] COMPARISON: CHEST SINGLE AP, October 21, 2016, 22:09. INDICATIONS : Fever MEDICAL HISTORY : Hypertension. Gastroesophageal reflux disease. SURGICAL HISTORY : Appendectomy. Cholecystectomy. Tonsillectomy ENCOUNTER: Initial ACUITY: 1 day PAIN SCORE: 0/10 LOCATION: chest FINDINGS: The cardiac silhouette is enlarged in transverse diameter. There is prominence of the aortic knob is with calcification characteristic of atherosclerotic vascular disease. There is elevation of the righ t hemidiaphragm. A moderate size hiatal hernia is present. There is no evidence of pneumonia. CONCLUSION: 1. No acute cardiopulmonary disease. 2. Hiatal hernia Joshua Rashid MD on January 20, 2017 at 21:12 Board Certified Radiologist. This report was verified electronically.
[2017-01-20] MEDS ORDERED: SODIUM CHLORID 0.9% 500 ML INJ 500 ML IV ONE (21:15)
[2017-01-20 21:20] LABS: GLOMERULAR FILTRATION RATE 43 ML/MIN (>89)
[2017-01-20 21:31] LABS: ALKALINE PHOSPHATASE 123 U/L (45-117); ALT (GPT) 89 U/L (10-53); ANION GAP 10 MEQ/L (5-15); AST (GOT) 84 U/L (15-37); BLOOD UREA NITROGEN 17 MG/DL (7-18); CHLORIDE 101 MEQ/L (98-107); POTASSIUM 3.4 MEQ/L (3.5-5.1); SODIUM (NA) 138 MEQ/L (136-145); TOTAL BILIRUBIN ADULT 0.9 MG/DL (0.2-1.0)
[2017-01-20 21:38] LABS: BLOOD, URINE TRACE (NEG); COMMENT (UR) CATH-CULT NOT IND; CULTURE IF INDICATED CATH CULTURE NOT IND; GLUCOSE,URINE NEG (NEG); KETONE, URINE NEG (NEG); NITRITE,URINE NEG (NEG); SQUAMOUS EPITHELIAL CELL URINE 1 /hpf (0-5); URINE COLOR YELLOW (YELLW/STRAW)
[2017-01-20 21:52] LABS: CREATINE KINASE 57 U/L (26-192)
[2017-01-20 22:03] LABS: APTT (PATIENT) 26.4 SEC (24.3-30.1); PROTHROMBIN TIME - PATIENT 11.3 SEC (9.8-11.6)
[2017-01-20] MEDS ORDERED: IOHEXOL 350 MG/ML 10 ML VIAL (for RAD DIAG) IVCONTRAST ONE (23:06)
--- NOTE | 2017-01-20 23:26 | RADRPT ---
EXAM DATE/TIME: 01/20/2017 22:58 [facility] COMPARISON: No previous studies available for comparison. INDICATIONS : Generalized weakness, recent UTI. IV CONTRAST: 90 cc Omnipaque 350 (iohexol) IV ORAL CONTRAST: No oral contrast ingested. RADIATION DOSE: 21.41 CTDIvol (mGy) MEDICAL HISTORY : Osteomyelitis. Hypertension. Gastroesophageal reflux disease.Melanoma. CVA. SURGICAL HISTORY : Appendectomy. .Tubal ligation. ENCOUNTER: Initial ACUITY: 1 day PAIN SCALE: 2/10 LOCATION: Bilateral lower quadrant TECHNIQUE: Volumetric scanning of the abdomen and pelvis was performed. Using automated exposure control and ad justment of the mA and/or kV according to patient size, radiation dose was kept as low as reasonably achievable to obtain optimal diagnostic quality images. DICOM format image data is available electro nically for review and comparison. FINDINGS: LOWER LUNGS: The visualized lower lungs are clear. LIVER: Homogeneous density without lesion. There is no dilation of the biliary tree. A couple of small calc ified gallstones are present.. SPLEEN: Normal size without lesion. PANCREAS: Within normal limits. KIDNEYS: Parapelvic renal cysts bilaterally. No kidney stone or hydronephrosis. ADRENAL GLANDS: Within normal limits. VASCULAR: There is no aortic aneurysm. BOWEL/MESENTERY: Large hiatal hernia. The stomach, small bowel, and colon demonstrate no acute abnormality. There is no free intraperitoneal air or fluid. ABDOMINAL WALL: Within normal limits. RETROPERITONEUM: There is no lymphadenopathy. BLADDER: No wall thickening or mass. REPRODUCTIVE: Within normal limits. INGUINAL: There is no lymphadenopathy or hernia. MUSCULOSKELETAL: Within normal limits for patient age. CONCLUSION: Gallstones. Hiatal hernia. Parapelvic renal cysts. No definite acute findings. Raffy Davis MD on January 20, 2017 at 23:20 Board Certified Radiologist. This report was verified electronically.
[2017-01-21] VITALS (10 sets, daily range): BP systolic 98–146; BP diastolic 55–73; PULSE 64–74; RESP 18–22; TEMP 97.5–98.6; O2SAT 92–100
[2017-01-21] MEDS ORDERED: SODIUM CHLORIDE 0.9% FLUSH 10 ML FLUSH IVF PRN (01:45)
[2017-01-21] MEDS ORDERED: BISACODYL 10 MG SUPP RECTAL PRN (02:00)
[2017-01-21] MEDS ORDERED: NALOXONE HCL 0.4 MG/ML AMP IV PUSH PRN (02:00)
[2017-01-21] MEDS ORDERED: SENNOSIDES 8.6 MG TAB PO PRN (02:00)
[2017-01-21] MEDS ORDERED: POTASSIUM CHLORIDE 10 MEQ CONTROLLED RELEASE TAB PO ONE (02:00)
[2017-01-21] MEDS ORDERED: LACTULOSE SYRUP 20 GM/30 ML CUP PO PRN (02:00)
[2017-01-21] MEDS ORDERED: SODIUM CHLORIDE 0.9% FLUSH 10 ML FLUSH IV FLUSH PRN (02:00)
[2017-01-21] MEDS ORDERED: ONDANSETRON HCL 4 MG/2 ML VIAL IVP PRN (02:00)
[2017-01-21] MEDS ORDERED: MAGNESIUM HYDROXIDE SUSP 30 ML CUP PO PRN (02:00)
[2017-01-21] MEDS ORDERED: PILL SPLITTER OTHER PRN (02:15)
[2017-01-21] MEDS: SODIUM CHLOR 0.9% 1000 ML INJ 1,000 ML IV SCH ×3 (02:38→21:01)
[2017-01-21] MEDS ORDERED: SULI200T PO (02:39)
[2017-01-21] MEDS ORDERED: ALBUTEROL SULFATE 90 MCG/ACT HFA 8 GM INHALER INH PRN (08:45)
--- NOTE | 2017-01-21 08:45 | HHI.HP ---
HPI Service [facility] Primary Care Physician Joycelyn Fritz MD Admission Diagnosis febrile illness; generalized weakness Diagnoses: Chief Complaint: Weakness (Malorie Villagomez) Travel History International Travel<30 Days: No Contact w/Intl Traveler <30 Da: No Traveled to Known Affected Are: No (Malorie Villagomez) History of Present Illness Mrs. Carnes is an 81-year-old elderly white female with history of hypertension, recent admission for TIA October 2016, GERD, hiatal hernia. Patient presented to the emergency room via EMS for evaluation of generalized weakness. Patient complaining of fever home, she thinks it was about 100, associated with chills, dry cough, no sputum. Denies any chest pain, no shortness of breath. Indicates she had a couple of episodes of diarrhea approximately 3 days ago. Denies any abdominal pain at this time. Indicates that she has been feeling very weak over the last year but more in the last couple days. States that she couldn't stand and walk and has been relying on her walker more. Has not had the flu shot and is declining. Per ED report, patient called 911 and upon arrival she had to be assisted to the bathroom and then to the stretcher. She did have a fever 100.3. She denies any urinary symptoms. Indicates she has a history of frequent UTIs and is noted that she has had multiple ED visits. The last time she was in the ER was in November 2016 and was prescribed Cipro. Indicates that she is due to see a urologist. Patient was evaluated in emergency room, laboratory workup was completed. She was noted with low-grade fever, temperature 99.6, pulse rate 108, blood pressure 121/67, sats 92% on room air. WBC was 10.6. Neutrophil 92.1. BMP remarkable for elevated creatinine 1.19. Potassium 3.4. AST 84, ALT 89. Lactic acid was okay. Abdomen and pelvis CT showed gallstones, hiatal hernia, parapelvic renal cysts. No definitive acute findings. Chest x-ray did not show any acute findings. Because of reported symptoms, she was given a one-time dose of Zosyn and cultures were obtained. Influenza swab was negative. Patient indicates she is feeling better, she is asking when she is going to be discharged. Patient is admitted for further evaluation and treatment. (Malorie Villagomez) Review of Systems Constitutional: DENIES: Diaphoretic episodes, Fatigue, Fever, Weight gain, Weight loss, Chills, Dizziness, Change in appetite, Night Sweats Endocrine: DENIES: Abnorml menstrual pattern, Heat/cold intolerance, Polydipsia , Polyuria, Polyphagia Eyes: DENIES: Blurred vision, Diplopia, Eye inflammation, Eye pain, Vision loss , Photosensitivity, Double Vision Ears, nose, mouth, throat: DENIES: Tinnitus, Hearing loss, Vertigo, Nasal discharge, Oral lesions, Throat pain, Hoarseness, Ear Pain, Running Nose, Epistaxis, Sinus Pain, Toothache, Odynophagia Respiratory: DENIES: Apneas, Cough, Snoring, Wheezing, Hemoptysis, Sputum production, Shortness of breath Cardiovascular: DENIES: Chest pain, Palpitations, Syncope, Dyspnea on Exertion , PND, Lower Extremity Edema, Orthopnea, Claudication Gastrointestinal: COMPLAINS OF: Diarrhea (3 days ago, none now ) Genitourinary: COMPLAINS OF: Urinary frequency, DENIES: Abnormal vaginal bleeding, Dysmenorrhea, Dyspareunia, Sexual dysfunction, Urinary incontinence, Urgency, Hematuria, Dysuria, Nocturia, Vaginal discharge Musculoskeletal: COMPLAINS OF: Back pain, DENIES: Joint pain, Muscle aches, Stiffness, Joint Swelling, Neck pain Integumentary: DENIES: Abnormal pigmentation, Pruritus, Rash, Nail changes, Breast masses, Breast skin changes, Nipple discharge Hematologic/lymphatic: DENIES: Bruising, Lymphadenopathy Neurologic: DENIES: Abnormal gait, Headache, Localized weakness, Paresthesias, Seizures, Speech Problems, Tremor, Poor Balance Psychiatric: DENIES: Anxiety, Confusion, Mood changes, Depression, Hallucinations, Agitation, Suicidal Ideation, Homicidal Ideation, Delusions ( Malorie Villagomez) Past Family Social History Past Medical History Arthritis Recurrent UTI Melanoma 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 Chronic back pain Hiatal hernia GERD Past Surgical History Partial mandible excision secondary to osteomyelitis Tubal ligation Appendectomy Cholecystectomy Reported Medications Reported Meds & Active Scripts Active Cipro (Ciprofloxacin HCl) 500 Mg Tab 500 Mg PO BID Klor-Con 10 (Potassium Chloride) 10 Meq Tab 30 Meq PO DAILY Hydrochlorothiazide 25 Mg Tab 12.5 Mg PO DAILY Aspirin 325 Mg Tab 81 Mg PO DAILY Eq Acetaminophen (Acetaminophen) 325 Mg Tab 650 Mg PO Q4H PRN Enalapril (Enalapril Maleate) 20 Mg Tab 20 Mg PO DAILY Proventil Hfa 6.7 GM Inh (Albuterol Sulfate) 90 Mcg/Act Aer 1 Puff INH Q4H PRN Reported Sulindac 200 Mg Tab 200 Mg PO BID Enalapril (Enalapril Maleate) 20 Mg Tab 20 Mg PO DAILY (Malorie Villagomez) Allergies: Coded Allergies: Sulfa (Sulfonamide Antibiotics) (Unverified Allergy, Severe, ITCHING, 12/10) cephalexin (Unverified Allergy, Unknown, rash, 12/10/16) Active Ordered Medications Inpatient Medications Acetaminophen (Tylenol) 650 mg ONCE ONCE PO Last administered on 01/20/17 21: 33; Start 01/20/17 at 20:45; Stop 01/20/17 at 20:48; Status DC Bisacodyl (Dulcolax Supp) 10 mg DAILY PRN RECTAL SEVERE CONSITIPATION; Start 01/21/17 at 02:00 Enoxaparin Sodium (Lovenox Inj) 40 mg Q24H SQ ; Start 01/21/17 at 09:00 Famotidine (Pepcid) 10 mg BID PO ; Start 01/21/17 at 09:00 Lactulose (Lactulose Liq) 30 ml DAILY PRN PO SEVERE CONSITIPATION; Start 01/21 at 02:00 Magnesium Hydroxide (Milk Of Magnesia Liq) 30 ml Q12H PRN PO MILD - MODERATE CONSTIPATION; Start 01/21/17 at 02:00 Miscellaneous (Pill Splitter) 1 ea UNSCH PRN OTHER SEE LABEL COMMENTS; Start 01/21/17 at 02:15 Naloxone HCl (Narcan Inj) 0.4 mg UNSCH PRN IV PUSH SEE LABEL COMMENTS; Start 01/21/17 at 02:00 Ondansetron HCl (Zofran Inj) 4 mg Q6H PRN IVP NAUSEA OR VOMITING; Start at 02:00 Piperacillin Sod/ Tazobactam Sod 100 ml @ 200 mls/hr ONCE ONCE IV Last administered on 01/20/17 21:33; Start 01/20/17 at 20:45; Stop 10/9/17 at 21:14 ; Status DC Potassium Chloride (KCl) 30 meq ONCE ONCE PO Last administered on 01/21/17t 02:39; Start 01/21/17 at 02:00; Stop 01/21/17 at 02:08; Status DC Sennosides (Senokot) 17.2 mg Q12H PRN PO MODERATE - SEVERE CONSTIPATION; Start 01/21/17 at 02:00 Sodium Chloride (NS Flush) 2 ml BID IV FLUSH ; Start 01/21/17 at 09:00 Family History Reviewed, noncontributory Social History Patient lives alone, she is independent. She has one daughter who is revealed. Quit smoking 30 years ago, smoked 2-1/2 packs per day. No alcohol abuse. No substance abuse. Uses a walker for ambulation. (Malorie Villagomez) Physical Exam Vital Signs Vital Signs Date Time Temp Pulse Resp B/P (MAP) Pulse Ox O2 Delivery O2 Flow Rate FiO2 01/21/17 07:44 97.5 66 18 133/63 (86) 98 01/21/17 03:11 65 16 120/66 (84) 10 Nasal Cannula 2.00 01/21/17 02:06 100 Nasal Cannula 3.00 01/21/17 00:00 98.6 66 19 121/61 (81) 100 Nasal Cannula 2.00 01/20/17 20:26 92 Nasal Cannula 2.00 01/20/17 20:20 99.6 108 16 121/67 (85) 92 Physical Exam GENERAL: This is a well-nourished, well-developed patient, in no apparent distress. SKIN: No rashes, ecchymoses or lesions. Cool and dry. HEAD: Atraumatic. Normocephalic. No temporal or scalp tenderness. EYES: Pupils equal round and reactive. Extraocular motions intact. No scleral icterus. No injection or drainage. ENT: Nose without bleeding, purulent drainage or septal hematoma. Throat without erythema, tonsillar hypertrophy or exudate. Uvula midline. Airway patent. NECK: Trachea midline. No JVD or lymphadenopathy. Supple, nontender, no meningeal signs. CARDIOVASCULAR: Regular rate and rhythm without murmurs, gallops, or rubs. RESPIRATORY: Clear to auscultation. Breath sounds equal bilaterally. No wheezes , rales, or rhonchi. GASTROINTESTINAL: Abdomen soft, non-tender, nondistended. No hepato-splenomegaly , or palpable masses. No guarding. MUSCULOSKELETAL: Extremities without clubbing, cyanosis, or edema. No joint tenderness, effusion, or edema noted. No calf tenderness. Negative Homans sign bilaterally. NEUROLOGICAL: Awake, alert oriented 3. Focal deficit. Laboratory Laboratory Tests Test 01/20/17 20:44 01/20/17 21:00 01/20/17 21:20 White Blood Count 10.6 Red Blood Count 4.99 Hemoglobin 15.2 Hematocrit 44.6 Mean Corpuscular Volume 89.3 Mean Corpuscular Hemoglobin 30.4 Mean Corpuscular Hemoglobin Concent 34.0 Red Cell Distribution Width 12.9 Platelet Count 194 Mean Platelet Volume 8.3 Neutrophils (%) (Auto) 92.1 Lymphocytes (%) (Auto) 3.6 Monocytes (%) (Auto) 3.9 Eosinophils (%) (Auto) 0.0 Basophils (%) (Auto) 0.4 Neutrophils # (Auto) 9.8 Lymphocytes # (Auto) 0.4 Monocytes # (Auto) 0.4 Eosinophils # (Auto) 0.0 Basophils # (Auto) 0.0 CBC Comment DIFF FINAL Differential Comment Blood Urea Nitrogen 17 Creatinine 1.19 Random Glucose 124 Total Protein 7.3 Albumin 3.6 Calcium Level 9.0 Magnesium Level 2.0 Alkaline Phosphatase 123 Aspartate Amino Transf (AST/SGOT) 84 Alanine Aminotransferase (ALT/SGPT) 89 Total Bilirubin 0.9 Sodium Level 138 Potassium Level 3.4 Chloride Level 101 Carbon Dioxide Level 27.0 Anion Gap 10 Estimat Glomerular Filtration Rate 43 Lactic Acid Level 1.0 Total Creatine Kinase 57 Troponin I LESS THAN 0.02 Lipase 58 Prothrombin Time 11.3 Prothromb Time International Ratio 1.0 Activated Partial Thromboplast Time 26.4 Urine Color YELLOW Urine Turbidity CLEAR Urine pH 8.0 Urine Specific [place] 1.017 Urine Protein TRACE Urine Glucose (UA) NEG Urine Ketones NEG Urine Occult Blood TRACE Urine Nitrite NEG Urine Bilirubin NEG Urine Urobilinogen LESS THAN 2.0 Urine Leukocyte Esterase NEG Urine RBC 19 Urine WBC 3 Urine Squamous Epithelial Cells 1 Microscopic Urinalysis Comment CATH-CULT NOT IND Date/Time Source Procedure Growth Status 01/20/17 21:00 Blood Peripheral Aerobic Blood Culture Pending Received 01/20/17 21:00 Blood Peripheral Anaerobic Blood Culture Pending Received 01/20/17 21:25 Nasal Washing Influenza Types A,B Antigen (TACHO) - Final NEGATIVE FOR FLU A AND B ANTIGEN.... Complete (Malorie Villagomez) Result Diagram: 01/20/17204301/20/172043 Imaging Last Impressions Chest X-Ray 01/20/172039 Signed Impressions: Service Date/Time: Friday, January 20, 2017 20:48 - CONCLUSION: 1. No acute cardiopulmonary disease. 2. Hiatal hernia Joshua Rashid MD Abdomen/Pelvis CT 01/20/172039 Signed Impressions: Service Date/Time: Friday, January 20, 2017 22:58 - CONCLUSION: Gallstones. Hiatal hernia. Parapelvic renal cysts. No definite acute findings. Raffy Davis MD (Malorie Villagomez) Caprini VTE Risk Assessment Caprini VTE Risk Assessment: Mod/High Risk (score >= 2) Caprini Risk Assessment Model Point Value = 1 Point Value = 2 Point Value = 3 Point Value = 5 Age 41-60 Minor surgery BMI > 25 kg/m2 Swollen legs Varicose veins or History of unexplained or recurrent spontaneous Oral contraceptives or hormone replacement Sepsis (< 1 month) Serious lung disease, including pneumonia (< 1 month) Abnormal pulmonary function Acute myocardial infarction Congestive heart failure (< 1 month) History of inflammatory bowel disease Medical patient at bed rest Age 61-74 Arthroscopic surgery Major open surgery (> 45 min) Laparoscopic surgery (> 45 min) Malignancy Confined to bed (> 72 hours) Immobilizing plaster cast Central venous access Age >= 75 History of VTE Family history of VTE Factor V Leiden Prothrombin [id number] Lupus anticoagulant Anticardiolipin antibodies Elevated serum homocysteine Heparin-induced thrombocytopenia Other congenital or acquired thrombophilia Stroke (< 1 month) Elective arthroplasty Hip, pelvis, or leg fracture Acute spinal cord injury (< 1 month) Prophylaxis Regimen Total Risk Factor Score Risk Level Prophylaxis Regimen 0-1 Low Early ambulation 2 Moderate Order ONE of the following: *Sequential Compression Device (SCD) *Heparin 5000 units SQ BID 3-4 Higher Order ONE of the following medications: *Heparin 5000 units SQ TID *Enoxaparin/Lovenox 40 mg SQ daily (WT < 150 kg, CrCl > 30 mL/min) *Enoxaparin/Lovenox 30 mg SQ daily (WT < 150 kg, CrCl > 10-29 mL/min) *Enoxaparin/Lovenox 30 mg SQ BID (WT < 150 kg, CrCl > 30 mL/min) AND/OR *Sequential Compression Device (SCD) 5 or more Highest Order ONE of the following medications: *Heparin 5000 units SQ TID (Preferred with Epidurals) *Enoxaparin/Lovenox 40 mg SQ daily (WT < 150 kg, CrCl > 30 mL/min) *Enoxaparin/Lovenox 30 mg SQ daily (WT < 150 kg, CrCl > 10-29 mL/min) *Enoxaparin/Lovenox 30 mg SQ BID (WT < 150 kg, CrCl > 30 mL/min) AND *Sequential Compression Device (SCD) (Malorie Villagomez) Assessment and Plan Problem List: (1) Febrile illness ICD Codes: R50.9 - Fever, unspecified Status: Acute (2) Generalized weakness ICD Codes: R53.1 - Weakness Status: Chronic (3) HTN (hypertension) ICD Codes: I10 - HTN (hypertension) Status: Chronic (4) Hx TIA/stroke w/o resid ICD Codes: Z86.73 - Personal history of transient ischemic attack (TIA), and cerebral infarction without residual deficits (5) Renal insufficiency ICD Codes: N28.9 - Disorder of kidney and ureter, unspecified Status: Acute (6) Gallstone ICD Codes: K80.20 - Calculus of gallbladder without cholecystitis without obstruction Status: Chronic Assessment and Plan Admit to Dr. Schultz 81-year-old elderly female admitted with generalized weakness, fever, chills. Complaining of nonproductive cough, diarrhea 3 days ago. Possible febrile illness, likely viral -Continue to follow cultures, we will not continue antibiotics at this time. If patient becomes febrile, WBC increases we will reconsider Generalized weakness, recent TIA with balance problems. -Consult physical therapy for assistance with mobility Elevated liver enzymes, etiology unclear. No hx of ETOH abuse, not on statins. -Repeat LFTs in the morning, if they remain elevated, she will need hepatic workup. CT findings with presence of gallstones, nonobstructive. -Continue to monitor Renal insufficiency -Continue with cautious hydration -Monitor BMP Hypertension, stable -Continue with medical management Recent TIA -Continue with aspirin Home medications reviewed, initiated as indicated Lovenox for DVT prophylaxis Pepcid for GI prophylaxis Consult case management for discharge planning Plan of care has been discussed with the patient, attending and registered nurse. Further management of the patient will be dependent on the hospital course This patient was seen by myself and Dr. Schultz, this H&P is written on his behalf (Malorie Villagomez) Assessment and Plan Patient seen and examined as above Chart reviewed Discussed with patient in detail Plan of care discussed with [employer] Labs for tomorrow Likely viral infection (Kaykay Schultz MD) Problem Qualifiers (1) HTN (hypertension): Qualified Codes: I10 - Essential (primary) hypertension (2) Gallstone: Qualified Codes: K80.20 - Calculus of gallbladder without cholecystitis without obstruction Malorie Villagomez Jan 21, 2017 08:45 Kaykay Schultz MD Jan 21, 2017 16:58
--- NOTE | 2017-01-21 08:56 | HHI.FF ---
Face to Face Verification Diagnosis: (1) Chronic UTI (2) Chronic low back pain Physical Therapy Order: Evaluate and Treat Home Health Nursing Order: Medical education Signs/symptoms of disease process Nursing assessment with vital signs Belt Lacer Order: To Evaluate: Living conditions/environment, Support services Order: To Provide: Long range planning, Community services I have seen patient Nuvia Carnes on 01/21/17. My clinical findings support the need for the requested home health care services because: Deconditioned w/ increased weakness Limited ability to care for self Need for psychosocial assistance I certify that my clinical findings support that this patient is homebound because: Unsteady gait/balance Unsafe to leave home unassisted Need for psychosocial assistance Malorie Villagomez [facility] Jan 21, 2017 08:56
[2017-01-21] MEDS: ASPIRIN 81 MG CHEW TAB PO SCH (09:00)
[2017-01-21] MEDS: FAMOTIDINE 20 MG TAB PO SCH ×4 (09:00→21:00)
[2017-01-21] MEDS ORDERED: GLUCAGON 1 MG/ML VIAL OTHER PRN (09:00)
[2017-01-21] MEDS ORDERED: SODIUM CHLORIDE 0.9% FLUSH 10 ML FLUSH IV FLUSH SCH (09:00)
[2017-01-21] MEDS ORDERED: DEXTROSE 50% IN WATER 50 ML VIAL(D50) IV PUSH PRN (09:00)
--- NOTE | 2017-01-21 09:58 | EKG ---
Date Performed: 01/20/2017 Time Performed: 20:57:21 PTAGE: 81 years EKG: SINUS TACHYCARDIA WITH OCCASIONAL SUPRAVENTRICULAR PREMATURE COMPLEXES MARKED LEFT AXIS DEV IATION PATTERN CONSISTENT WITH PULMONARY DISEASE ABNORMAL ECG PREVIOUS TRACING : 10/21/2016 21.56 Compared to prior tracing no significant change DOCTOR: Joshua Carnes Interpretating Date/Time 01/21/2017 09:56:12
[2017-01-21] MEDS: SODIUM CHLORIDE 0.9% FLUSH 10 ML FLUSH IV FLUSH SCH ×2 (11:31→21:00)
[2017-01-21] MEDS: HYDROCHLOROTHIAZIDE 12.5 MG CAP PO SCH (11:32)
[2017-01-21] MEDS: ENALAPRIL MALEATE 10 MG TAB PO SCH (11:33)
[2017-01-21] MEDS: POTASSIUM CHLORIDE 10 MEQ CONTROLLED RELEASE TAB PO SCH (11:35)
[2017-01-21] MEDS: ENOXAPARIN SODIUM 40 MG/0.4 ML SYRINGE SQ SCH (11:37)
[2017-01-21] MEDS ORDERED: INSULIN ASPART SUPPLEMENTAL SCALE SQ SCH (12:00)
[2017-01-22 04:00] VITALS: BP 132/84; PULSE 61; RESP 18; O2SAT 93
[2017-01-22 05:54] LABS: BICARBONATE 29.9 MEQ/L (21.0-32.0); INDIRECT BILIRUBIN 0.6 MG/DL (0.0-0.8); POTASSIUM 4.7 MEQ/L (3.5-5.1); TOTAL BILIRUBIN ADULT 0.7 MG/DL (0.2-1.0)
[2017-01-22 07:45] VITALS: BP 136/69; PULSE 69; RESP 18; TEMP 97.5; O2SAT 97
[2017-01-22] MEDS: SODIUM CHLOR 0.9% 1000 ML INJ 1,000 ML IV SCH ×2 (08:00→21:11)
[2017-01-22] MEDS: POTASSIUM CHLORIDE 10 MEQ CONTROLLED RELEASE TAB PO SCH (08:34)
[2017-01-22] MEDS: HYDROCHLOROTHIAZIDE 12.5 MG CAP PO SCH (08:34)
[2017-01-22] MEDS: SODIUM CHLORIDE 0.9% FLUSH 10 ML FLUSH IV FLUSH SCH ×2 (08:35→21:00)
[2017-01-22] MEDS: ENALAPRIL MALEATE 10 MG TAB PO SCH (08:35)
[2017-01-22] MEDS: ENOXAPARIN SODIUM 40 MG/0.4 ML SYRINGE SQ SCH (08:36)
[2017-01-22] MEDS: ASPIRIN 81 MG CHEW TAB PO SCH (08:36)
[2017-01-22] MEDS: FAMOTIDINE 20 MG TAB PO SCH ×2 (08:36→21:11)
[2017-01-22 12:06] VITALS: BP 117/75; PULSE 88; RESP 18; TEMP 98.1; O2SAT 97
[2017-01-22 12:19] LABS: AUTOMATED NEUTROPHIL # 3.2 TH/MM3 (1.8-7.7); BASOPHIL % 0.6 % (0.0-2.0); EOSINOPHIL # 0.2 TH/MM3 (0-0.4); EOSINOPHIL % 5.2 % (0.0-4.0); HEMATOCRIT 43.4 % (35.0-46.0); HEMO FLAGS DIFF FINAL; LYMPH % 16.9 % (9.0-44.0); LYMPHOCYTE # 0.8 TH/MM3 (1.0-4.8); MEAN CELL VOLUME 91.5 FL (80.0-100.0); MEAN CORPUSCULAR HEMOGLOBIN 30.5 PG (27.0-34.0); MEAN CORPUSCULAR HGB CONC 33.3 % (32.0-36.0); MONO % 9.5 % (0.0-8.0); NEUT % 67.8 % (16.0-70.0); PLATELET COUNT 165 TH/MM3 (150-450); RED BLOOD COUNT 4.74 MIL/MM3 (4.00-5.30); RED CELL DISTRIBUTION WIDTH 13.3 % (11.6-17.2); WHITE BLOOD COUNT 4.8 TH/MM3 (4.0-11.0)
[2017-01-22 15:39] VITALS: BP 131/73; PULSE 76; RESP 20; TEMP 97.9; O2SAT 96
--- NOTE | 2017-01-22 15:53 | HHI.PR ---
Subjective Remarks Stokes is still feeling weak and tired has some body ache Did walk yesterday with physical therapist As the patient and her energy is improving but not enough to go home today. She lives alone. Review of system for 10 point system otherwise unremarkable Objective Objective Results - Vital Signs Date Time Temp Pulse Resp B/P (MAP) Pulse Ox O2 Delivery O2 Flow Rate FiO2 01/22/17 15:39 97.9 76 20 131/73 (92) 96 01/22/17 12:06 98.1 88 18 117/75 (89) 97 01/22/17 07:45 97.5 69 18 136/69 (91) 97 01/22/17 04:00 61 18 132/84 (100) 93 01/21/17 23:03 97.9 64 18 146/73 (97) 95 01/21/17 20:14 98 01/21/17 20:00 97.5 74 18 98/55 (69) 95 01/21/17 16:21 97.8 67 22 130/60 (83) 96 I/O 01/21/17 01/21/17 01/21/17 01/22/17 01/22/17 01/22/17 07:00 15:00 23:00 07:00 15:00 23:00 Intake Total 600 ml 150 ml 2020 ml Balance 600 ml 150 ml 2020 ml Intake Oral 150 ml IV Total 600 ml 2020 ml # Voids 4 # Bowel Movements 2 1 Result Diagram: 01/22/17 1130 01/22/17 0508 Imaging Last Impressions Chest X-Ray 01/20/172039 Signed Impressions: Service Date/Time: Friday, January 20, 2017 20:48 - CONCLUSION: 1. No acute cardiopulmonary disease. 2. Hiatal hernia Joshua Rashid MD Abdomen/Pelvis CT 01/20/172039 Signed Impressions: Service Date/Time: Friday, January 20, 2017 22:58 - CONCLUSION: Gallstones. Hiatal hernia. Parapelvic renal cysts. No definite acute findings. Raffy Davis MD Other Results Laboratory Tests Test 01/22/17 05:08 01/22/17 11:30 Blood Urea Nitrogen 21 Creatinine 1.13 Random Glucose 81 Total Protein 7.2 Albumin 3.2 Calcium Level 8.9 Alkaline Phosphatase 107 Aspartate Amino Transf (AST/SGOT) 54 Alanine Aminotransferase (ALT/SGPT) 56 Total Bilirubin 0.7 Direct Bilirubin 0.1 Sodium Level 138 Potassium Level 4.7 Chloride Level 103 Carbon Dioxide Level 29.9 Anion Gap 5 Estimat Glomerular Filtration Rate 46 Indirect Bilirubin 0.6 White Blood Count 4.8 Red Blood Count 4.74 Hemoglobin 14.5 Hematocrit 43.4 Mean Corpuscular Volume 91.5 Mean Corpuscular Hemoglobin 30.5 Mean Corpuscular Hemoglobin Concent 33.3 Red Cell Distribution Width 13.3 Platelet Count 165 Mean Platelet Volume 8.8 Neutrophils (%) (Auto) 67.8 Lymphocytes (%) (Auto) 16.9 Monocytes (%) (Auto) 9.5 Eosinophils (%) (Auto) 5.2 Basophils (%) (Auto) 0.6 Neutrophils # (Auto) 3.2 Lymphocytes # (Auto) 0.8 Monocytes # (Auto) 0.5 Eosinophils # (Auto) 0.2 Basophils # (Auto) 0.0 CBC Comment DIFF FINAL Differential Comment Date/Time Source Procedure Growth Status 01/20/17 21:00 Blood Peripheral Aerobic Blood Culture - Preliminary NO GROWTH IN 2 DAYS Resulted 01/20/17 21:00 Blood Peripheral Anaerobic Blood Culture - Preliminary NO GROWTH IN 2 DAYS Resulted 01/20/17 21:25 Nasal Washing Influenza Types A,B Antigen (TACHO) - Final NEGATIVE FOR FLU A AND B ANTIGEN.... Complete Physical Exam Physical Exam GENERAL: This is a well-nourished, well-developed patient, in no apparent distress. SKIN: No rashes, ecchymoses or lesions. Cool and dry. HEAD: Atraumatic. Normocephalic. No temporal or scalp tenderness. EYES: Pupils equal round and reactive. Extraocular motions intact. No scleral icterus. No injection or drainage. ENT: Airway patent. NECK: Trachea midline. No JVD or lymphadenopathy. Supple, nontender, no meningeal signs. CARDIOVASCULAR: Regular rate and rhythm without murmurs, gallops, or rubs. RESPIRATORY: Clear to auscultation. Breath sounds equal bilaterally. No wheezes , rales, or rhonchi. GASTROINTESTINAL: Abdomen soft, non-tender, nondistended. No hepato-splenomegaly , or palpable masses. No guarding. MUSCULOSKELETAL: Extremities without clubbing, cyanosis, or edema. No joint tenderness, effusion, or edema noted. No calf tenderness. Negative Homans sign bilaterally. NEUROLOGICAL: Awake, alert oriented 3. Focal deficit. A/P Assessment and Plan (1) Febrile illness ICD Codes: R50.9 - Fever, unspecified Status: Acute (2) Generalized weakness ICD Codes: R53.1 - Weakness Status: Chronic (3) HTN (hypertension) ICD Codes: I10 - HTN (hypertension) Status: Chronic (4) Hx TIA/stroke w/o resid ICD Codes: Z86.73 - Personal history of transient ischemic attack (TIA), and cerebral infarction without residual deficits (5) Renal insufficiency ICD Codes: N28.9 - Disorder of kidney and ureter, unspecified Status: Acute (6) Gallstone ICD Codes: K80.20 - Calculus of gallbladder without cholecystitis without obstruction Status: Chronic Assessment and Plan Admit to Dr. Schultz 81-year-old elderly female admitted with generalized weakness, fever, chills. Complaining of nonproductive cough, diarrhea 3 days ago. Possible febrile illness, likely viral -Continue to follow cultures, we will not continue antibiotics at this time. If patient becomes febrile, WBC increases we will reconsider Generalized weakness, recent TIA with balance problems. -Consult physical therapy for assistance with mobility Elevated liver enzymes, etiology unclear. No hx of ETOH abuse, not on statins. Likely secondary to viral infection -Repeat LFTs showing improvement CT findings with presence of gallstones, nonobstructive. -Continue to monitor Renal insufficiency -Continue with cautious hydration -Monitor BMP Hypertension, stable -Continue with medical management Recent TIA -Continue with aspirin Home medications reviewed, initiated as indicated Lovenox for DVT prophylaxis Pepcid for GI prophylaxis Consult case management for discharge planning If patient is stable hopefully discharge tomorrow Kaykay Schultz MD Jan 22, 2017 15:53
[2017-01-22 19:53] VITALS: BP 138/67; PULSE 75; RESP 18; TEMP 98.2; O2SAT 94
[2017-01-22 23:28] VITALS: BP 101/52; PULSE 67; RESP 19; TEMP 98.6; O2SAT 97
[2017-01-23 03:39] VITALS: BP 132/74; PULSE 71; RESP 17; TEMP 97.6; O2SAT 96
[2017-01-23 07:44] VITALS: BP 136/82; PULSE 67; RESP 18; TEMP 98.1; O2SAT 97
[2017-01-23] MEDS: HYDROCHLOROTHIAZIDE 12.5 MG CAP PO SCH (08:08)
[2017-01-23] MEDS: POTASSIUM CHLORIDE 10 MEQ CONTROLLED RELEASE TAB PO SCH (08:10)
[2017-01-23] MEDS: ENALAPRIL MALEATE 10 MG TAB PO SCH (08:10)
[2017-01-23] MEDS: ASPIRIN 81 MG CHEW TAB PO SCH (08:11)
[2017-01-23] MEDS: SODIUM CHLORIDE 0.9% FLUSH 10 ML FLUSH IV FLUSH SCH (08:11)
[2017-01-23] MEDS: FAMOTIDINE 20 MG TAB PO SCH (08:11)
[2017-01-23] MEDS ORDERED: ENOXAPARIN SODIUM 30 MG/0.3 ML SYRINGE SQ SCH (09:00)
[2017-01-23 11:37] VITALS: BP 123/62; PULSE 74; RESP 18; TEMP 98.6; O2SAT 95
[2017-01-23 15:01] VITALS: BP 135/66; PULSE 78; RESP 18; TEMP 98; O2SAT 93
--- NOTE | 2017-01-23 18:36 | HHI.PR ---
Subjective Remarks Stokes is feeling better and no body aches Walking around without any problem As per patient her energy is better today. She wants to go home today Review of system for 10 point system otherwise unremarkable Objective Objective Results - Vital Signs Date Time Temp Pulse Resp B/P (MAP) Pulse Ox O2 Delivery O2 Flow Rate FiO2 01/23/17 15:01 98.0 78 18 135/66 (89) 93 01/23/17 11:37 98.6 74 18 123/62 (82) 95 01/23/17 07:44 98.1 67 18 136/82 (100) 97 01/23/17 04:33 21 01/23/17 03:39 97.6 71 17 132/74 (93) 96 01/22/17 23:28 98.6 67 19 101/52 (68) 97 01/22/17 19:53 98.2 75 18 138/67 (90) 94 Result Diagram: 01/22/17 1130 01/22/17 0508 Imaging Last Impressions Chest X-Ray 01/20/172039 Signed Impressions: Service Date/Time: Friday, January 20, 2017 20:48 - CONCLUSION: 1. No acute cardiopulmonary disease. 2. Hiatal hernia Joshua Rashid MD Abdomen/Pelvis CT 01/20/172039 Signed Impressions: Service Date/Time: Friday, January 20, 2017 22:58 - CONCLUSION: Gallstones. Hiatal hernia. Parapelvic renal cysts. No definite acute findings. Raffy Davis MD Other Results Date/Time Source Procedure Growth Status 01/20/17 21:00 Blood Peripheral Aerobic Blood Culture - Preliminary NO GROWTH IN 3 DAYS Resulted 01/20/17 21:00 Blood Peripheral Anaerobic Blood Culture - Preliminary NO GROWTH IN 3 DAYS Resulted 01/20/17 21:25 Nasal Washing Influenza Types A,B Antigen (TACHO) - Final NEGATIVE FOR FLU A AND B ANTIGEN.... Complete Physical Exam Physical Exam GENERAL: This is a well-nourished, well-developed patient, in no apparent distress. SKIN: No rashes, ecchymoses or lesions. Cool and dry. HEAD: Atraumatic. Normocephalic. No temporal or scalp tenderness. EYES: Pupils equal round and reactive. Extraocular motions intact. No scleral icterus. No injection or drainage. ENT: Airway patent. NECK: Trachea midline. No JVD or lymphadenopathy. Supple, nontender, no meningeal signs. CARDIOVASCULAR: Regular rate and rhythm without murmurs, gallops, or rubs. RESPIRATORY: Clear to auscultation. Breath sounds equal bilaterally. No wheezes , rales, or rhonchi. GASTROINTESTINAL: Abdomen soft, non-tender, nondistended. No hepato-splenomegaly , or palpable masses. No guarding. MUSCULOSKELETAL: Extremities without clubbing, cyanosis, or edema. No joint tenderness, effusion, or edema noted. No calf tenderness. Negative Homans sign bilaterally. NEUROLOGICAL: Awake, alert oriented 3. Focal deficit. A/P Assessment and Plan (1) Febrile illness ICD Codes: R50.9 - Fever, unspecified Status: Acute (2) Generalized weakness ICD Codes: R53.1 - Weakness Status: Chronic (3) HTN (hypertension) ICD Codes: I10 - HTN (hypertension) Status: Chronic (4) Hx TIA/stroke w/o resid ICD Codes: Z86.73 - Personal history of transient ischemic attack (TIA), and cerebral infarction without residual deficits (5) Renal insufficiency ICD Codes: N28.9 - Disorder of kidney and ureter, unspecified Status: Acute (6) Gallstone ICD Codes: K80.20 - Calculus of gallbladder without cholecystitis without obstruction Status: Chronic Assessment and Plan 81-year-old elderly female admitted with generalized weakness, fever, chills. Complaining of nonproductive cough, diarrhea 3 days ago. Possible febrile illness, likely viral -Continue to follow cultures so far negative 3 days,. Generalized weakness, recent TIA with balance problems. -Consult physical therapy for assistance with mobility. Patient is now back to her baseline as per patient Elevated liver enzymes, etiology unclear. No hx of ETOH abuse, not on statins. Likely secondary to viral infection -Repeat LFTs showing improvement CT findings with presence of gallstones, nonobstructive. -Continue to monitor Renal insufficiency -Continue with cautious hydration -Better Hypertension, stable -Continue with medical management Recent TIA -Continue with aspirin Home medications reviewed, initiated as indicated Lovenox for DVT prophylaxis Pepcid for GI prophylaxis Plan to discharge her home today to be followed by primary care doctor as patient is overall a stable and walking around and at her baseline as per patient. Patient wants to go home today. Discussed with patient Discussed with RN. Kaykay Schultz MD Jan 23, 2017 18:36
== END 2017-01-23 19:46 | disposition home or self-care (01) ==
LOC: NEPC 20:13 → NEDA 01-21 01:47 → NEPHCDU 01-21 03:19
PROVIDERS: ADMIT Specialist; ATTEND Specialist
DX: R50.9 Fever, unspecified (principal); R53.1 Weakness; I10 Essential (primary) hypertension; K44.9 Diaphragmatic hernia without obstruction or gangrene; K80.20 Calculus of gallbladder without cholecystitis without obstruction; N28.1 Cyst of kidney, acquired; N28.9 Disorder of kidney and ureter, unspecified; K21.9 Gastro-esophageal reflux disease without esophagitis; R94.31 Abnormal electrocardiogram [ECG] [EKG]; Z86.73 Personal history of transient ischemic attack (TIA), and cerebral infarction without residual deficits; Z87.440 Personal history of urinary (tract) infections; Z85.820 Personal history of malignant melanoma of skin; Z87.891 Personal history of nicotine dependence
CPT/HCPCS: 71010; 74177; 80048; 80053; 80076; 81001; 82550; 83605; 83690; 83735; 84145; 84484; 85025; 85610; 85730; 87040; 87804; 93005; 96361; 96365; 96372; 97110; 97116; 97162; 99285; G0378; G8987; G8988; J1650; J2543; J7030; J7040; Q9967

== ENCOUNTER 2017-01-29 08:51 | Emergency (ER) | payer MEDICARE, MEDICAID ==
[~2017-01-29] VITALS: Ht 157.5 cm; Wt 70.0 kg
[~2017-01-29 08:51] MED LIST changes: -CIPR-9 PO; +SULI200T PO
[2017-01-29 08:53] VITALS: BP 216/100; PULSE 62; RESP 18; TEMP 97.6; O2SAT 93
[2017-01-29 09:31] LABS: BLOOD, URINE NEG (NEG); GLUCOSE,URINE NEG (NEG); KETONE, URINE NEG (NEG); NITRITE,URINE NEG (NEG); PH, URINE 6.5 (5.0-8.5); SQUAMOUS EPITHELIAL CELL URINE 1 /hpf (0-5); URINE COLOR YELLOW (YELLW/STRAW)
[2017-01-29 09:33] LABS: COMMENT (UR) CULT NOT INDICATED; CULTURE IF INDICATED CULT NOT INDICATED
--- NOTE | 2017-01-29 10:05 | PD ---
HPI Chief Complaint: Complaint Time Seen by Provider: 09:34 Travel History International Travel<30 days: No Contact w/Intl Traveler<30days: No Traveled to known affect area: No History of Present Illness HPI 80 year-old woman presents emergency Department worried that she may have an infection or urinary tract infection. She states she often has them. She was just in the hospital for vague symptoms of feeling sick and weak. She had a negative workup including cultures imaging urine. She is a point with her primary doctor in a couple more days. I seen her before in the emergency department she is always pretty emphatic that she has urinary tract infections. Cultures usually grow strep or mixed gram-positive's or nothing. She looks well now. No fevers. Never had a fever when she was in the hospital. History Past Medical History Narrative Medical Arthritis Recurrent UTI Melanoma 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 Chronic back pain Hiatal hernia GERD PNEUMOCCOCAL Vaccine (Year): 2 Menopausal: Yes : 7 Para: 4 Social History Alcohol Use: No Tobacco Use: No Allergies-Medications (Allergen,Severity, Reaction): Coded Allergies: Sulfa (Sulfonamide Antibiotics) (Unverified Allergy, Severe, ITCHING, ) cephalexin (Unverified Allergy, Unknown, rash, 01/29/17) Reported Meds & Prescriptions Reported Meds & Active Scripts Active Klor-Con 10 (Potassium Chloride) 10 Meq Tab 30 Meq PO DAILY Hydrochlorothiazide 25 Mg Tab 12.5 Mg PO DAILY Aspirin 325 Mg Tab 81 Mg PO DAILY Eq Acetaminophen (Acetaminophen) 325 Mg Tab 650 Mg PO Q4H PRN Proventil Hfa 6.7 GM Inh (Albuterol Sulfate) 90 Mcg/Act Aer 1 Puff INH Q4H PRN Reported Sulindac 200 Mg Tab 200 Mg PO BID Enalapril (Enalapril Maleate) 20 Mg Tab 20 Mg PO DAILY Review of Systems Except as stated in HPI: all other systems reviewed are Neg Physical Exam Narrative GENERAL: Well-appearing elderly 81-year-old woman, no acute distress. SKIN: Focused skin assessment warm/dry. HEAD: Atraumatic. Normocephalic. CARDIOVASCULAR: Regular rate and rhythm. No murmur appreciated. RESPIRATORY: No accessory muscle use. Clear to auscultation. Breath sounds equal bilaterally. GASTROINTESTINAL: Abdomen soft, non-tender, nondistended. Hepatic and splenic margins not palpable. MUSCULOSKELETAL: No obvious deformities. No edema. NEUROLOGICAL: Awake and alert. No obvious cranial nerve deficits. Motor grossly within normal limits. Normal speech. PSYCHIATRIC: Appropriate mood and affect; insight and judgment normal. Data Data Last Documented VS Vital Signs Date Time Temp Pulse Resp B/P (MAP) Pulse Ox O2 Delivery O2 Flow Rate FiO2 01/29/17 08:53 97.6 62 18 216/100 (138) 93 Room Air Orders Orders Urinalysis - C+S If Indicated (01/29/17 09:06) Urine Culture (01/29/17 10:01) Labs Laboratory Tests Test 01/29/17 09:00 Urine Color YELLOW Urine Turbidity CLEAR Urine pH 6.5 Urine Specific [place] 1.017 Urine Protein NEG mg/dL Urine Glucose (UA) NEG mg/dL Urine Ketones NEG mg/dL Urine Occult Blood NEG Urine Nitrite NEG Urine Bilirubin NEG Urine Urobilinogen LESS THAN 2.0 MG/DL Urine Leukocyte Esterase NEG Urine RBC 3 /hpf Urine WBC 1 /hpf Urine Squamous Epithelial Cells 1 /hpf Microscopic Urinalysis Comment CULT NOT INDICATED MDM Medical Decision Making Medical Screen Exam Complete: Yes Emergency Medical Condition: Yes Differential Diagnosis Anxiety, UTI, generalized weakness, debility, other Narrative Course Medical decision making 81-year-old presents to the ED to be "checked for UTI". Urine completely negative. Patient states she often has "early UTIs" and needs antibiotic treatment. We'll send this for culture but she is unlikely to benefit from antibiotics. She has an outpatient follow-up appointment with her primary physician in 2 days. Diagnosis Primary Impression: Generalized weakness Additional Instructions: Continue current medications. Follow up with her primary doctor in the next 2-4 days. Return to the emergency department for any new or worsening symptoms. Med/Other Pt SpecificInfo: No Change to Meds Disposition: 01 DISCHARGE HOME Condition: Stable Levi Sanderson MD Jan 29, 2017 10:05
== END 2017-01-29 10:21 | disposition home or self-care (01) ==
LOC: NEPD 08:51
DX: R53.1 Weakness (principal); M19.90 Unspecified osteoarthritis, unspecified site; Z86.73 Personal history of transient ischemic attack (TIA), and cerebral infarction without residual deficits
CPT/HCPCS: 81001; 87086; 99283

== ENCOUNTER 2017-04-04 06:09 | Emergency (ER) | payer MEDICARE, MEDICAID ==
[~2017-04-04] VITALS: Ht 157.5 cm; Wt 85.0 kg
[~2017-04-04 06:09] MED LIST changes: -ACET1TAB86 PO; +ACET325T15 PO; +ASPI-183 PO; -ASPI325T PO; +KLOR10TA PO; -POTA-243 PO
[2017-04-04 06:22] VITALS: BP 155/83; PULSE 76; RESP 16; TEMP 97.7; O2SAT 96
--- NOTE | 2017-04-04 06:39 | PD ---
HPI Chief Complaint: Complaint Time Seen by Provider: 06:34 Travel History International Travel<30 days: No Contact w/Intl Traveler<30days: No Traveled to known affect area: No History of Present Illness HPI The patient is a 82-year-old female who presents to the emergency department to evaluate for possible urinary tract infection. The patient states she wants to have cataract surgery in the future, they will only perform the surgery on . The patient states they will not perform the surgery she has a bladder infection. She does note a history of recurrent urinary tract infections and has had symptoms for last several days. The patient states she normally does not have dysuria with her UTIs. However, she will have generalized malaise, urgency, frequency, and weakness of the lower extremities when she has UTI. She has been having these symptoms for the last 2 days. She does note mild nausea without any vomiting, diarrhea, or abdominal pain. She denies any actual fever. The patient's primary physician is Dr. Joycelyn Fritz. Symptoms are mild, there are no current alleviating or exacerbating factors. PFSH Past Medical History Arthritis: Yes Asthma: No Autoimmune Disease: No Blood Disorders: No Anxiety: No Depression: No Heart Rhythm Problems: No Cancer: Yes (MELANOMA) Cardiac Catheterization: No Cardiovascular Problems: Yes (HTN) High Cholesterol: No Chemotherapy: No Chest Pain: No Congestive Heart Failure: No COPD: No Cerebrovascular Accident: Yes Diabetes: No Diminished Hearing: No Endocrine: No Gastrointestinal Disorders: Yes GERD: Yes Glaucoma: No Genitourinary: Yes (UTI) Headaches: Yes Hepatitis: No Hiatal Hernia: No Hypertension: Yes Immune Disorder: No Implanted Vascular Access Dvce: No Kidney Stones: No Musculoskeletal: Yes (chronic back pain) Neurologic: Yes Psychiatric: No Reproductive: No Respiratory: Yes Immunizations Current: No Migraines: No Myocardial Infarction: No Radiation Therapy: No Renal Failure: No Seizures: No Sickle Cell Disease: No Sleep Apnea: No Thyroid Disease: No Ulcer: No Influenza Vaccination: No PNEUMOCCOCAL Vaccine (Year): 2 ?: Not Menopausal: Yes : 7 Para: 4 Miscarriage: 3 Tubal Ligation: Yes Past Surgical History Abdominal Surgery: Yes AICD: No Appendectomy: Yes Arteriovenous Shunt: No Cardiac Surgery: No Cholecystectomy: Yes Coronary Artery Bypass Graft: No Ear Surgery: No Endocrine Surgery: No Eye Surgery: No Gynecologic Surgery: Yes Insulin Pump: No Joint Replacement: No Neurologic Surgery: No Pacemaker: No Thoracic Surgery: No Tonsillectomy: Yes Other 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) Social History Alcohol Use: No Tobacco Use: No (30 years ago) Substance Use: No Allergies-Medications (Allergen,Severity, Reaction): Coded Allergies: Sulfa (Sulfonamide Antibiotics) (Unverified Allergy, Severe, ITCHING, ) cephalexin (Unverified Allergy, Unknown, rash, 01/29/17) Reported Meds & Prescriptions Reported Meds & Active Scripts Active Cipro (Ciprofloxacin HCl) 250 Mg Tab 250 Mg PO BID 3 Days Klor-Con 10 (Potassium Chloride) 10 Meq Tab 30 Meq PO DAILY Hydrochlorothiazide 25 Mg Tab 12.5 Mg PO DAILY Eq Acetaminophen (Acetaminophen) 325 Mg Tab 650 Mg PO Q4H PRN Reported Sulindac 200 Mg Tab 200 Mg PO BID Enalapril (Enalapril Maleate) 20 Mg Tab 20 Mg PO DAILY Review of Systems Except as stated in HPI: all other systems reviewed are Neg General / Constitutional: No: Fever Gastrointestinal: Positive: Nausea, No: Vomiting, Diarrhea, Abdominal Pain Genitourinary: Positive: Urgency, Frequency, No: Dysuria, Hematuria, Pelvic Pain Skin: No Rash, No Itching Physical Exam Narrative GENERAL: Awake, alert, pleasant 82-year-old female who appears her stated age and is in no acute respiratory distress. SKIN: Focused skin assessment warm/dry. HEAD: Atraumatic. Normocephalic. EYES: No injection or drainage. ENT: No nasal bleeding or discharge. Mucous membranes pink and moist. NECK: Trachea midline. No JVD. CARDIOVASCULAR: Regular rate and rhythm. No murmur appreciated. RESPIRATORY: No accessory muscle use. Clear to auscultation. Breath sounds equal bilaterally. GASTROINTESTINAL: Abdomen soft, non-tender, nondistended. No suprapubic tenderness. Back: No CVA tenderness. MUSCULOSKELETAL: No obvious deformities. No clubbing. No cyanosis. No edema. NEUROLOGICAL: Awake and alert. No obvious cranial nerve deficits. Motor grossly within normal limits. Normal speech. PSYCHIATRIC: Appropriate mood and affect; insight and judgment normal. Data Data Last Documented VS Vital Signs Date Time Temp Pulse Resp B/P (MAP) Pulse Ox O2 Delivery O2 Flow Rate FiO2 04/04/17 07:48 04/04/17 06:22 97.7 76 16 96 Room Air Orders Orders Urinalysis - C+S If Indicated (04/04/17 06:35) Ed Discharge Order (04/04/17 07:38) Labs Laboratory Tests Test 04/04/17 06:48 Urine Color YELLOW Urine Turbidity HAZY Urine pH 5.0 Urine Specific [place] 1.014 Urine Protein NEG mg/dL Urine Glucose (UA) NEG mg/dL Urine Ketones NEG mg/dL Urine Occult Blood TRACE Urine Nitrite NEG Urine Bilirubin NEG Urine Urobilinogen LESS THAN 2.0 MG/DL Urine Leukocyte Esterase SMALL Urine RBC 6 /hpf Urine WBC LESS THAN 1 /hpf Urine Squamous Epithelial Cells 2 /hpf Urine Mucus FEW /lpf Microscopic Urinalysis Comment CULT NOT INDICATED MDM Medical Decision Making Medical Screen Exam Complete: Yes Emergency Medical Condition: Yes Medical Record Reviewed: Yes Differential Diagnosis Differential diagnosis includes bacteriuria, recurrent cystitis, dysuria, urinary frequency, urinary urgency, anemia, chronic fatigue syndrome. Narrative Course A UA was sent to lab. I reviewed the patient's EMR, she does have multiple visits for UTIs and generalized weakness, most of her workups of been unremarkable. She did have a UTI earlier this ear that was resistant to Cipro. The patient's vitals are unremarkable. Therefore, UA will be sent to lab. If negative, patient is stable for outpatient follow-up with her primary physician. The patient was signed out to the oncoming physician, Dr. Callejas, at 7 AM. If UA is negative, patient is stable for outpatient follow-up. Diagnosis Primary Impression: Urinary urgency Scripts Ciprofloxacin (Cipro) 250 Mg Tab 250 MG PO BID for Infection for 3 Days, #6 TAB 0 Refills Prov: Miguel Angel Callejas MD 04/04/17 Condition: Stable Lio Gomes MD Apr 04, 2017 06:39
[2017-04-04 07:30] LABS: BILIRUBIN, URINE NEG (NEG); BLOOD, URINE TRACE (NEG); GLUCOSE,URINE NEG (NEG); KETONE, URINE NEG (NEG); MUCUS URINE FEW /lpf (OCC); NITRITE,URINE NEG (NEG); SQUAMOUS EPITHELIAL CELL URINE 2 /hpf (0-5); URINE COLOR YELLOW (YELLW/STRAW); URINE LEUKOCYTE ESTERASE SMALL (NEG)
--- NOTE | 2017-04-04 07:38 | PD ---
Data Data Last Documented VS Vital Signs Date Time Temp Pulse Resp B/P (MAP) Pulse Ox O2 Delivery O2 Flow Rate FiO2 04/04/17 06:22 97.7 76 16 155/83 (107) 96 Room Air Orders Orders Urinalysis - C+S If Indicated (04/04/17 06:35) Labs Laboratory Tests Test 04/04/17 06:48 Urine Color YELLOW Urine Turbidity HAZY Urine pH 5.0 Urine Specific [place] 1.014 Urine Protein NEG mg/dL Urine Glucose (UA) NEG mg/dL Urine Ketones NEG mg/dL Urine Occult Blood TRACE Urine Nitrite NEG Urine Bilirubin NEG Urine Urobilinogen LESS THAN 2.0 MG/DL Urine Leukocyte Esterase SMALL Urine RBC 6 /hpf Urine WBC LESS THAN 1 /hpf Urine Squamous Epithelial Cells 2 /hpf Urine Mucus FEW /lpf Microscopic Urinalysis Comment CULT NOT INDICATED MDM Medical Record Reviewed: Yes Supervised Visit with GARRY: No Narrative Course Please refer to the outgoing provider note. The patient's urinalysis results show no UTI. Prior culture is a been predominantly negative. Reassurance provided. The patient may benefit from urology follow-up and referral/contact info has been provided Diagnosis Primary Impression: Urinary urgency Referrals: Godfrey Quintero MD 2 days Disposition: 01 DISCHARGE HOME Condition: Stable Miguel Angel Callejas MD Apr 04, 2017 07:38
[2017-04-04] MEDS ORDERED: CIPR250T52 PO (07:40)
== END 2017-04-04 07:49 | disposition home or self-care (01) ==
LOC: NEPE 06:09
DX: R39.15 Urgency of urination (principal); Z87.440 Personal history of urinary (tract) infections
CPT/HCPCS: 81001; 99283

== ENCOUNTER 2017-05-27 06:14 | Emergency (ER) | payer MEDICARE, MEDICAID ==
[~2017-05-27] VITALS: Ht 154.9 cm; Wt 72.0 kg
[~2017-05-27 06:14] MED LIST changes: -ALBU6.7H INH; -ASPI-183 PO; +CIPR250T52 PO
[2017-05-27 06:17] VITALS: BP 147/79; PULSE 71; RESP 16; TEMP 97.5; O2SAT 96
--- NOTE | 2017-05-27 06:42 | PD ---
HPI Chief Complaint: Complaint Time Seen by Provider: 06:22 Travel History International Travel<30 days: No Contact w/Intl Traveler<30days: No Traveled to known affect area: No History of Present Illness HPI The patient is an 82 year old female who presents to the [facility] emergency department with a history of a week ago noticing some blood in her urine. She reports that this is frequently how her symptoms start when she is going to get a urinary tract infection. She reports that since then she has had urinary frequency and urgency over the last couple of days associated with an urge incontinence. She denies having any dysuria currently. She denies having any fevers or chills. She denies having any flank pain. She reports having generalized fatigue. She denies having any chest pain, chest pressure, or shortness of breath. Otherwise in review of systems she denies having any recent cough or congestion, neck pain, abdominal pain, vomiting, diarrhea, or neurologic symptoms. The patient reports having a history of recurrent urinary tract infections. She reports that her primary care physician is Dr. Joycelyn Fritz. She denies ever being seen by a urologist for this. wilbur [facility] Past Medical History Narrative Medical The patient's past medical history is significant for arthritis, recurrent urinary tract infections, history of melanoma, history of CVA and TIA, gastritis , hypertension, headaches, history of osteomyelitis of the jaw, prior history of tobacco use, history of chronic back pain, hiatal hernia, acid reflux. Arthritis: Yes Asthma: No Autoimmune Disease: No Blood Disorders: No Anxiety: No Depression: No Heart Rhythm Problems: No Cancer: Yes (MELANOMA) Cardiac Catheterization: No Cardiovascular Problems: Yes (HTN) High Cholesterol: No Chemotherapy: No Chest Pain: No Congestive Heart Failure: No COPD: No Cerebrovascular Accident: Yes Diabetes: No Diminished Hearing: No Endocrine: No Gastrointestinal Disorders: Yes GERD: Yes Glaucoma: No Genitourinary: Yes (UTI) Headaches: Yes Hepatitis: No Hiatal Hernia: No Hypertension: Yes Immune Disorder: No Implanted Vascular Access Dvce: No Kidney Stones: No Musculoskeletal: Yes (chronic back pain) Neurologic: Yes Psychiatric: No Reproductive: No Respiratory: Yes Immunizations Current: No Migraines: No Myocardial Infarction: No Radiation Therapy: No Renal Failure: No Seizures: No Sickle Cell Disease: No Sleep Apnea: No Thyroid Disease: No Ulcer: No PNEUMOCCOCAL Vaccine (Year): 2 Menopausal: Yes : 7 Para: 4 Miscarriage: 3 Tubal Ligation: Yes Past Surgical History Narrative Surgical The patient's past surgical history is significant for partial mandible excision due to osteomyelitis, bilateral tubal ligation, appendectomy, cholecystectomy Abdominal Surgery: Yes AICD: No Appendectomy: Yes Arteriovenous Shunt: No Cardiac Surgery: No Cholecystectomy: Yes Coronary Artery Bypass Graft: No Ear Surgery: No Endocrine Surgery: No Eye Surgery: No Gynecologic Surgery: Yes Insulin Pump: No Joint Replacement: No Neurologic Surgery: No Pacemaker: No Thoracic Surgery: No Tonsillectomy: Yes Other 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) Social History Alcohol Use: No Tobacco Use: No (30 years ago) Substance Use: No Allergies-Medications (Allergen,Severity, Reaction): Coded Allergies: Sulfa (Sulfonamide Antibiotics) (Verified Allergy, Severe, ITCHING, ) cephalexin (Verified Allergy, Unknown, rash, 05/27/17) Reported Meds & Prescriptions Reported Meds & Active Scripts Active Cipro (Ciprofloxacin HCl) 250 Mg Tab 250 Mg PO BID 3 Days Klor-Con 10 (Potassium Chloride) 10 Meq Tab 30 Meq PO DAILY Hydrochlorothiazide 25 Mg Tab 12.5 Mg PO DAILY Eq Acetaminophen (Acetaminophen) 325 Mg Tab 650 Mg PO Q4H PRN Reported Sulindac 200 Mg Tab 200 Mg PO BID Enalapril (Enalapril Maleate) 20 Mg Tab 20 Mg PO DAILY Review of Systems Except as stated in HPI: all other systems reviewed are Neg General / Constitutional: No: Fever Eyes: No: Visual changes HENT: No: Headaches Cardiovascular: No: Chest Pain or Discomfort Respiratory: No: Shortness of Breath Gastrointestinal: No: Nausea, Vomiting, Diarrhea, Abdominal Pain Genitourinary: Positive: Urgency, Frequency, Hematuria, No: Dysuria, Flank Pain Musculoskeletal: No: Pain Skin: No Rash Neurologic: Positive: Weakness (Generalized fatigue), No: Focal Abnormalities, Change in Mentation, Slurred Speech, Sensory Disturbance Psychiatric: No: Depression Endocrine: No: Polydipsia Hematologic/Lymphatic: No: Easy Bruising Physical Exam Narrative General: The patient is a well-developed well-nourished female in no acute distress. Head and Neck exam: Head is normocephalic atraumatic. Eyes: EOMI, pupils are equal round and reactive to light. Nose: Midline septum with pink mucous membranes Mouth: Dentition unremarkable. Moist mucus membranes. Posterior oropharynx is not erythematous. No tonsillar hypertrophy. Uvula midline. Airway patent. Neck: No palpable lymphadenopathy. No nuchal rigidity. No thyromegaly. Cardiovascular: Regular rate and rhythm without murmurs, gallops, or rubs. Lungs: Clear to auscultation bilaterally. No wheezes, rhonchi, or rales. Abdomen: Soft, without tenderness to palpation in all 4 quadrants of the abdomen. No guarding, rebound, or rigidity. Normal bowel sounds are audible. No tenderness on palpation of McBurney's point. Negative Ventura's sign. Extremities: No clubbing or cyanosis. The patient has trace pedal edema bilateral lower extremities which she reports is chronic and intermittent. 2+ pulses in all 4 extremities. No calf tenderness on palpation. Back: No spinous process tenderness to palpation. No costovertebral angle tenderness to palpation. Neurologic Exam: Grossly nonfocal. Skin Exam: No rash noted. Intact skin that is warm and dry. Data Data Last Documented VS Vital Signs Date Time Temp Pulse Resp B/P (MAP) Pulse Ox O2 Delivery O2 Flow Rate FiO2 05/27/17 08:50 05/27/17 07:05 76 18 05/27/17 06:17 97.5 96 Room Air Orders Orders Urinalysis - C+S If Indicated (05/27/17 06:23) Ed Discharge Order (05/27/17 08:10) Labs Laboratory Tests Test 05/27/17 06:30 Urine Color YELLOW Urine Turbidity CLEAR Urine pH 5.0 Urine Specific [place] 1.012 Urine Protein NEG mg/dL Urine Glucose (UA) NEG mg/dL Urine Ketones NEG mg/dL Urine Occult Blood TRACE Urine Nitrite NEG Urine Bilirubin NEG Urine Urobilinogen LESS THAN 2.0 MG/DL Urine Leukocyte Esterase MOD Urine RBC 1 /hpf Urine WBC 2 /hpf Urine Squamous Epithelial Cells 2 /hpf Urine Bacteria FEW /hpf Microscopic Urinalysis Comment CULT NOT INDICATED MDM Medical Decision Making Medical Screen Exam Complete: Yes Emergency Medical Condition: Yes Medical Record Reviewed: Yes Differential Diagnosis Interstitial cystitis, versus bacterial cystitis, versus bladder mass, versus bladder stone Narrative Course During the course of the patient's emergency department visit, the patient's history, examination, and differential diagnosis were reviewed with the patient. The patient was placed on a monitoring specialist with oximetry and frequent blood pressure monitoring. The patient is normally vital signs on arrival. The patient will have a urinalysis done at this time. The patient's electronic medical record was reviewed and the patient has been in the emergency department on multiple occasions with similar reports. From reviewing the record she has had microscopic hematuria in the past without evidence of urinary tract infection. I did explain to her that this should be followed up with a urologist. She will be given the name of the urologist cushion cover inspector for follow-up, Dr. Alejandre. I explained that I will do a culture of her urine if no other signs of infection are noted. The patient's urinalysis is pending at the conclusion of my shift. The patient' s case was checked out to the oncoming emergency physician disposition the patient based on the conclusion of the workup. Diagnosis Primary Impression: Urinary urgency Araceli Aragon MD May 27, 2017 06:42
[2017-05-27 07:13] LABS: BACTERIA, URINE FEW /hpf; BILIRUBIN, URINE NEG (NEG); BLOOD, URINE TRACE (NEG); GLUCOSE,URINE NEG (NEG); KETONE, URINE NEG (NEG); NITRITE,URINE NEG (NEG); SQUAMOUS EPITHELIAL CELL URINE 2 /hpf (0-5); URINE COLOR YELLOW (YELLW/STRAW); URINE LEUKOCYTE ESTERASE MOD (NEG)
--- NOTE | 2017-05-27 08:10 | PD ---
Data Data Last Documented VS Vital Signs Date Time Temp Pulse Resp B/P (MAP) Pulse Ox O2 Delivery O2 Flow Rate FiO2 05/27/17 07:05 76 18 05/27/17 06:17 97.5 147/79 (101) 96 Room Air Orders Orders Urinalysis - C+S If Indicated (05/27/17 06:23) Labs Laboratory Tests Test 05/27/17 06:30 Urine Color YELLOW Urine Turbidity CLEAR Urine pH 5.0 Urine Specific [place] 1.012 Urine Protein NEG mg/dL Urine Glucose (UA) NEG mg/dL Urine Ketones NEG mg/dL Urine Occult Blood TRACE Urine Nitrite NEG Urine Bilirubin NEG Urine Urobilinogen LESS THAN 2.0 MG/DL Urine Leukocyte Esterase MOD Urine RBC 1 /hpf Urine WBC 2 /hpf Urine Squamous Epithelial Cells 2 /hpf Urine Bacteria FEW /hpf Microscopic Urinalysis Comment CULT NOT INDICATED MDM Supervised Visit with GARRY: No Narrative Course Case is checked out to me by Dr. Aragon at 7 AM. I'm awaiting urine studies. At 8 AM the urinalysis is back and I reviewed the results with the patient. Urinalysis does not show significant signs of infection and does not meet standards for culture She does not require in about therapy She should follow-up with primary physician to discuss her symptoms Diagnosis Primary Impression: Urinary urgency Additional Instruction: The patient was advised to follow up with their physician and return if they worsen. Med/Other Pt SpecificInfo: Other Disposition: 01 DISCHARGE HOME Condition: Stable Aquiles Qureshi MD May 27, 2017 08:10
== END 2017-05-27 08:56 | disposition home or self-care (01) ==
LOC: NEPC 06:14
DX: R39.15 Urgency of urination (principal); I10 Essential (primary) hypertension; M19.90 Unspecified osteoarthritis, unspecified site; Z87.440 Personal history of urinary (tract) infections; Z85.820 Personal history of malignant melanoma of skin; Z86.73 Personal history of transient ischemic attack (TIA), and cerebral infarction without residual deficits; Z87.891 Personal history of nicotine dependence; Z88.8 Allergy status to other drugs, medicaments and biological substances; Z88.2 Allergy status to sulfonamides; Z79.899 Other long term (current) drug therapy
CPT/HCPCS: 81001; 99283

== ENCOUNTER 2017-06-16 17:52 | Emergency (ER) | payer MEDICARE, MEDICAID ==
[2017-06-16 18:13] VITALS: BP 154/68; PULSE 65; RESP 18; TEMP 97.5; O2SAT 95
[2017-06-16 20:32] LABS: BACTERIA, URINE RARE /hpf; BILIRUBIN, URINE NEG (NEG); BLOOD, URINE SMALL (NEG); GLUCOSE,URINE NEG (NEG); KETONE, URINE NEG (NEG); MUCUS URINE FEW /lpf (OCC); NITRITE,URINE NEG (NEG); SQUAMOUS EPITHELIAL CELL URINE 8 /hpf (0-5); URINE COLOR YELLOW (YELLW/STRAW); URINE LEUKOCYTE ESTERASE MOD (NEG)
[2017-06-16 21:32] LABS: AUTOMATED NEUTROPHIL # 5.1 TH/MM3 (1.8-7.7); BASOPHIL # 0.1 TH/MM3 (0-0.2); BASOPHIL % 0.8 % (0.0-2.0); EOSINOPHIL # 0.2 TH/MM3 (0-0.4); EOSINOPHIL % 2.6 % (0.0-4.0); HEMATOCRIT 43.1 % (35.0-46.0); HEMOGLOBIN 14.9 GM/DL (11.6-15.3); LYMPH % 25.9 % (9.0-44.0); MEAN CELL VOLUME 89.6 FL (80.0-100.0); MEAN CORPUSCULAR HEMOGLOBIN 30.9 PG (27.0-34.0); MEAN CORPUSCULAR HGB CONC 34.5 % (32.0-36.0); MEAN PLATELET VOLUME 8.7 FL (7.0-11.0); MONO % 4.9 % (0.0-8.0); MONOCYTE # 0.4 TH/MM3 (0-0.9); NEUT % 65.8 % (16.0-70.0); PLATELET COUNT 218 TH/MM3 (150-450); RED BLOOD COUNT 4.81 MIL/MM3 (4.00-5.30); RED CELL DISTRIBUTION WIDTH 12.9 % (11.6-17.2); WHITE BLOOD COUNT 7.8 TH/MM3 (4.0-11.0)
[2017-06-16 21:56] LABS: BICARBONATE 27.5 MEQ/L (21.0-32.0); CREATININE 1.19 MG/DL (0.50-1.00)
[2017-06-17] MEDS ORDERED: CIPR-9 PO (00:41)
--- NOTE | 2017-06-17 00:41 | PD ---
HPI Chief Complaint: Complaint Time Seen by Provider: 00:34 Travel History International Travel<30 days: No Contact w/Intl Traveler<30days: No Traveled to known affect area: No History of Present Illness HPI 82-year-old female complains of dysuria and frequency. Patient states the symptoms started yesterday. Patient denies any headache. Patient denies any chest pain or shortness of breath. Patient denies abdominal pain. Patient denies any back pain. Patient states that she has mild intermittent cramping of the lower extremity. Patient has history of recurrent UTI in the past. Patient requesting Cipro. Patient denies any fever chills. PFSH Past Medical History Arthritis: Yes Asthma: No Autoimmune Disease: No Blood Disorders: No Anxiety: No Depression: No Heart Rhythm Problems: No Cancer: Yes (MELANOMA) Cardiac Catheterization: No Cardiovascular Problems: Yes (HTN) High Cholesterol: No Chemotherapy: No Chest Pain: No Congestive Heart Failure: No COPD: No Cerebrovascular Accident: Yes Diabetes: No Diminished Hearing: No Endocrine: No Gastrointestinal Disorders: Yes GERD: Yes Glaucoma: No Genitourinary: Yes (UTI) Headaches: Yes Hepatitis: No Hiatal Hernia: No Hypertension: Yes Immune Disorder: No Implanted Vascular Access Dvce: No Kidney Stones: No Musculoskeletal: Yes (chronic back pain) Neurologic: Yes Psychiatric: No Reproductive: No Respiratory: Yes Immunizations Current: No Migraines: No Myocardial Infarction: No Radiation Therapy: No Renal Failure: No Seizures: No Sickle Cell Disease: No Sleep Apnea: No Thyroid Disease: No Ulcer: No PNEUMOCCOCAL Vaccine (Year): 2 Menopausal: Yes : 7 Para: 4 Miscarriage: 3 Tubal Ligation: Yes Past Surgical History Abdominal Surgery: Yes AICD: No Appendectomy: Yes Arteriovenous Shunt: No Cardiac Surgery: No Cholecystectomy: Yes Coronary Artery Bypass Graft: No Ear Surgery: No Endocrine Surgery: No Eye Surgery: No Gynecologic Surgery: Yes Insulin Pump: No Joint Replacement: No Neurologic Surgery: No Pacemaker: No Thoracic Surgery: No Tonsillectomy: Yes Other 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) Social History Alcohol Use: No Tobacco Use: No (30 years ago) Substance Use: No Allergies-Medications (Allergen,Severity, Reaction): Coded Allergies: Sulfa (Sulfonamide Antibiotics) (Verified Allergy, Severe, ITCHING, ) cephalexin (Verified Allergy, Unknown, rash, 05/27/17) Reported Meds & Prescriptions Reported Meds & Active Scripts Active Cipro (Ciprofloxacin HCl) 250 Mg Tab 250 Mg PO BID 3 Days Klor-Con 10 (Potassium Chloride) 10 Meq Tab 30 Meq PO DAILY Hydrochlorothiazide 25 Mg Tab 12.5 Mg PO DAILY Eq Acetaminophen (Acetaminophen) 325 Mg Tab 650 Mg PO Q4H PRN Reported Sulindac 200 Mg Tab 200 Mg PO BID Enalapril (Enalapril Maleate) 20 Mg Tab 20 Mg PO DAILY Review of Systems General / Constitutional: No: Fever Eyes: No: Visual changes HENT: No: Headaches Cardiovascular: No: Chest Pain or Discomfort Respiratory: No: Shortness of Breath Gastrointestinal: No: Abdominal Pain Genitourinary: Positive: Frequency, Dysuria Musculoskeletal: No: Pain Skin: No Rash Neurologic: No: Weakness Psychiatric: No: Depression Endocrine: No: Polydipsia Hematologic/Lymphatic: No: Easy Bruising Physical Exam Narrative GENERAL: Well-nourished, well-developed patient. SKIN: Focused skin assessment warm/dry. HEAD: Normocephalic. EYES: No scleral icterus. No injection or drainage. NECK: Supple, trachea midline. No JVD or lymphadenopathy. CARDIOVASCULAR: Regular rate and rhythm without murmurs, gallops, or rubs. RESPIRATORY: Breath sounds equal bilaterally. No accessory muscle use. GASTROINTESTINAL: Abdomen soft, non-tender, nondistended. MUSCULOSKELETAL: No cyanosis, or edema. BACK: Nontender without obvious deformity. No CVA tenderness. Neurologic exam normal. Data Data Last Documented VS Vital Signs Date Time Temp Pulse Resp B/P (MAP) Pulse Ox O2 Delivery O2 Flow Rate FiO2 06/16/17 18:13 97.5 65 18 154/68 (96) 95 Orders Orders Complete Blood Count With Diff (06/16/17 18:16) Basic Metabolic Panel (Bmp) (06/16/17 18:16) Urinalysis - C+S If Indicated (06/16/17 18:16) Labs Laboratory Tests Test 06/16/17 18:27 06/16/17 20:00 Urine Color YELLOW Urine Turbidity HAZY Urine pH 5.0 Urine Specific [place] 1.024 Urine Protein NEG mg/dL Urine Glucose (UA) NEG mg/dL Urine Ketones NEG mg/dL Urine Occult Blood SMALL Urine Nitrite NEG Urine Bilirubin NEG Urine Urobilinogen LESS THAN 2.0 MG/DL Urine Leukocyte Esterase MOD Urine RBC 10 /hpf Urine WBC 3 /hpf Urine Squamous Epithelial Cells 8 /hpf Urine Bacteria RARE /hpf Urine Mucus FEW /lpf Microscopic Urinalysis Comment CULT NOT INDICATED White Blood Count 7.8 TH/MM3 Red Blood Count 4.81 MIL/MM3 Hemoglobin 14.9 GM/DL Hematocrit 43.1 % Mean Corpuscular Volume 89.6 FL Mean Corpuscular Hemoglobin 30.9 PG Mean Corpuscular Hemoglobin Concent 34.5 % Red Cell Distribution Width 12.9 % Platelet Count 218 TH/MM3 Mean Platelet Volume 8.7 FL Neutrophils (%) (Auto) 65.8 % Lymphocytes (%) (Auto) 25.9 % Monocytes (%) (Auto) 4.9 % Eosinophils (%) (Auto) 2.6 % Basophils (%) (Auto) 0.8 % Neutrophils # (Auto) 5.1 TH/MM3 Lymphocytes # (Auto) 2.0 TH/MM3 Monocytes # (Auto) 0.4 TH/MM3 Eosinophils # (Auto) 0.2 TH/MM3 Basophils # (Auto) 0.1 TH/MM3 CBC Comment DIFF FINAL Differential Comment Blood Urea Nitrogen 24 MG/DL Creatinine 1.19 MG/DL Random Glucose 80 MG/DL Calcium Level 9.0 MG/DL Sodium Level 142 MEQ/L Potassium Level 3.8 MEQ/L Chloride Level 106 MEQ/L Carbon Dioxide Level 27.5 MEQ/L Anion Gap 9 MEQ/L Estimat Glomerular Filtration Rate 43 ML/MIN [facility] Medical Decision Making Medical Screen Exam Complete: Yes Emergency Medical Condition: Yes Interpretation(s) CBC within normal limits. BMP with BUN at 24. Creatinine 1.19. GFR 43. UA positive for 3 WBC and bacteria. Differential Diagnosis Differential diagnosis including urethritis, UTI, pyelonephritis. Narrative Course 82-year-old female with dysuria and frequency. History of recurrent UTI. Cipro 500 mg p.o. given. Diagnosis Primary Impression: UTI (urinary tract infection) Qualified Codes: N30.00 - Acute cystitis without hematuria Patient Instructions: General Instructions Additional Instructions: Cipro as directed. Follow-up with personal physician. Med/Other Pt SpecificInfo: Prescription(s) given Scripts Ciprofloxacin (Cipro) 500 Mg Tab 500 MG PO BID for Infection, #14 TAB 0 Refills Prov: Kadeem Acuña MD 06/17/17 Disposition: 01 DISCHARGE HOME Condition: Stable Kadeem Acuña MD Jun 17, 2017 00:41
[2017-06-17] MEDS ORDERED: CIPROFLOXACIN 500 MG TAB PO ONE (00:45)
[2017-06-18] MEDS ORDERED: MACR100C2 PO (22:58)
[2017-06-18] MEDS ORDERED: DOXY100C PO (23:53)
== END 2017-06-17 01:00 | disposition home or self-care (01) ==
LOC: NEPC 17:52
DX: N30.00 Acute cystitis without hematuria (principal); I10 Essential (primary) hypertension; M19.90 Unspecified osteoarthritis, unspecified site; K21.9 Gastro-esophageal reflux disease without esophagitis; Z85.820 Personal history of malignant melanoma of skin; Z86.73 Personal history of transient ischemic attack (TIA), and cerebral infarction without residual deficits; Z87.440 Personal history of urinary (tract) infections; Z88.2 Allergy status to sulfonamides; Z88.8 Allergy status to other drugs, medicaments and biological substances; Z79.899 Other long term (current) drug therapy
CPT/HCPCS: 80048; 81001; 85025; 99283

== ENCOUNTER 2017-06-18 12:24 | Observation (INO) | payer MEDICARE, MEDICAID ==
[~2017-06-18 12:24] MED LIST changes: -ACET325T15 PO; +CIPR-9 PO; -CIPR250T52 PO
[2017-06-18 12:56] VITALS: BP 140/83; PULSE 88; RESP 18; TEMP 97.3; O2SAT 96
[2017-06-18 14:02] LABS: AUTOMATED NEUTROPHIL # 8.2 TH/MM3 (1.8-7.7); BASOPHIL % 0.1 % (0.0-2.0); EOSINOPHIL # 0.1 TH/MM3 (0-0.4); EOSINOPHIL % 1.2 % (0.0-4.0); HEMATOCRIT 47.5 % (35.0-46.0); HEMOGLOBIN 16.7 GM/DL (11.6-15.3); LYMPH % 5.4 % (9.0-44.0); LYMPHOCYTE # 0.5 TH/MM3 (1.0-4.8); MEAN CELL VOLUME 89.6 FL (80.0-100.0); MEAN CORPUSCULAR HEMOGLOBIN 31.6 PG (27.0-34.0); MEAN CORPUSCULAR HGB CONC 35.2 % (32.0-36.0); MEAN PLATELET VOLUME 8.2 FL (7.0-11.0); MONO % 3.2 % (0.0-8.0); MONOCYTE # 0.3 TH/MM3 (0-0.9); NEUT % 90.1 % (16.0-70.0); PLATELET COUNT 201 TH/MM3 (150-450); RED CELL DISTRIBUTION WIDTH 12.9 % (11.6-17.2); WHITE BLOOD COUNT 9.1 TH/MM3 (4.0-11.0)
[2017-06-18 14:20] LABS: ALBUMIN 3.6 GM/DL (3.4-5.0); AST (GOT) 18 U/L (15-37); BICARBONATE 27.4 MEQ/L (21.0-32.0); BLOOD UREA NITROGEN 20 MG/DL (7-18); CALCIUM 8.6 MG/DL (8.5-10.1); CHLORIDE 103 MEQ/L (98-107); CREATININE 1.11 MG/DL (0.50-1.00); GLOMERULAR FILTRATION RATE 47 ML/MIN (>89); GLUCOSE,RANDOM 88 MG/DL (74-106); SODIUM (NA) 138 MEQ/L (136-145)
[2017-06-18 14:23] LABS: ALKALINE PHOSPHATASE 91 U/L (45-117); ALT (GPT) 20 U/L (10-53); TOTAL BILIRUBIN ADULT 0.8 MG/DL (0.2-1.0); TOTAL PROTEIN 7.6 GM/DL (6.4-8.2)
[2017-06-18] MEDS ORDERED: LEVOFLOXACIN 500 MG PREMIX INJ 100 ML IV ONE (15:30)
[2017-06-18] MEDS ORDERED: SODIUM CHLOR 0.9% 1000 ML INJ 1,000 ML IV ONE (15:30)
--- NOTE | 2017-06-18 15:53 | PD ---
HPI Chief Complaint: Abdominal Pain Time Seen by Provider: 15:08 Travel History International Travel<30 days: No Contact w/Intl Traveler<30days: No Traveled to known affect area: No History of Present Illness HPI This is an 82-year-old female who has multiple visits to this emergency department with complaints of frequent urinary tract infections, presents today with complaints of weakness and diarrhea. Patient states she was seen last night for another UTI. He states that they gave her Cipro which usually is the antibiotic to give her for UTIs. She states that today she was continuing to have what she describes as "dysentery". She states that she has had 3 day history of diarrhea. She states that she felt weak and had to use her walker which is what brought her to the emergency department. The patient reports that she was seen by her primary care physician, Dr. Saint Fofana, for UTI, who called her and told her not to take the Cipro as the bacteria she had in her urine was resistant to the ciprofloxacin. She denies any fevers, chills. She reports abdominal cramping but no true pain. S please note her triage note states that she had right lower quadrant abdominal pain. She denies this states that she has crampy discomfort when she has the loose stools. When asked how much diarrhea she had, she reports 4-5 watery bowel movements per day for 3 days. There is no vomiting. There are no other complaints at time of my examination. PFSH Past Medical History Arthritis: Yes Asthma: No Autoimmune Disease: No Blood Disorders: No Anxiety: No Depression: No Heart Rhythm Problems: No Cancer: Yes (MELANOMA) Cardiac Catheterization: No Cardiovascular Problems: Yes (HTN) High Cholesterol: No Chemotherapy: No Chest Pain: No Congestive Heart Failure: No COPD: No Cerebrovascular Accident: Yes Diabetes: No Diminished Hearing: No Endocrine: No Gastrointestinal Disorders: Yes GERD: Yes Glaucoma: No Genitourinary: Yes (UTI) Headaches: Yes Hepatitis: No Hiatal Hernia: No Hypertension: Yes Immune Disorder: No Implanted Vascular Access Dvce: No Kidney Stones: No Musculoskeletal: Yes (chronic back pain) Neurologic: Yes Psychiatric: No Reproductive: No Respiratory: Yes Immunizations Current: Yes Migraines: No Myocardial Infarction: No Radiation Therapy: No Renal Failure: No Seizures: No Sickle Cell Disease: No Sleep Apnea: No Thyroid Disease: No Ulcer: No Tetanus Vaccination: < 5 Years Influenza Vaccination: No PNEUMOCCOCAL Vaccine (Year): 2 ?: Not Menopausal: Yes : 7 Para: 4 Miscarriage: 3 Tubal Ligation: Yes Past Surgical History Abdominal Surgery: Yes AICD: No Appendectomy: Yes Arteriovenous Shunt: No Cardiac Surgery: No Cholecystectomy: Yes Coronary Artery Bypass Graft: No Ear Surgery: No Endocrine Surgery: No Eye Surgery: No Gynecologic Surgery: Yes (TUBAL LIGATIONS ) Insulin Pump: No Joint Replacement: No Neurologic Surgery: No Pacemaker: No Thoracic Surgery: No Tonsillectomy: Yes Other Surgery: Yes (L MANDIBLE SURGERY ) Social History Alcohol Use: No Tobacco Use: No (quit long time ago ) Substance Use: No Allergies-Medications (Allergen,Severity, Reaction): Coded Allergies: Sulfa (Sulfonamide Antibiotics) (Verified Allergy, Severe, ITCHING, 06/18/17 ) cephalexin (Verified Allergy, Unknown, rash, 06/18/17) Reported Meds & Prescriptions Reported Meds & Active Scripts Active Cipro (Ciprofloxacin HCl) 500 Mg Tab 500 Mg PO BID Klor-Con 10 (Potassium Chloride) 10 Meq Tab 30 Meq PO DAILY Hydrochlorothiazide 25 Mg Tab 12.5 Mg PO DAILY Reported Sulindac 200 Mg Tab 200 Mg PO BID Enalapril (Enalapril Maleate) 20 Mg Tab 20 Mg PO DAILY Review of Systems Except as stated in HPI: all other systems reviewed are Neg General / Constitutional: No: Fever, Chills HENT: No: Headaches, Lightheadedness Cardiovascular: No: Chest Pain or Discomfort, Palpitations Respiratory: No: Cough, Shortness of Breath Gastrointestinal: Positive: Diarrhea, Abdominal Pain (Cramps), No: Nausea, Vomiting Genitourinary: Positive: Dysuria, No: Frequency, Incontinence Musculoskeletal: Positive: Weakness (Generalized), No: Pain Neurologic: Positive: Weakness (Generalized), No: Dizziness, Headache Physical Exam Narrative GENERAL: Well-developed well-nourished female in no acute respiratory distress. SKIN: Focused skin assessment warm/dry. HEAD: Atraumatic. Normocephalic. EYES: Pupils equal and round. No scleral icterus. No injection or drainage. ENT: No nasal bleeding or discharge. Mucous membranes pink and moist. NECK: Trachea midline. Supple. CARDIOVASCULAR: Regular rate and rhythm. No murmur appreciated. RESPIRATORY: No accessory muscle use. Clear to auscultation. Breath sounds equal bilaterally. GASTROINTESTINAL: Abdomen soft, obese, non-tender, nondistended. No pain elicited on deep palpation. No rebound. No pulsatile masses. MUSCULOSKELETAL: No obvious deformities. No clubbing. No cyanosis. No edema. NEUROLOGICAL: Awake and alert. No obvious cranial nerve deficits. Motor grossly within normal limits. Normal speech. Data Data Last Documented VS Vital Signs Date Time Temp Pulse Resp B/P (MAP) Pulse Ox O2 Delivery O2 Flow Rate FiO2 06/18/17 17:16 77 15 148/71 (96) 95 06/18/17 12:56 97.3 Orders Orders Complete Blood Count With Diff (06/18/17 13:02) Comprehensive Metabolic Panel (06/18/17 13:02) Lipase (06/18/17 13:02) Sodium Chlor 0.9% 1000 Ml Inj (Ns 1000 M (06/18/17 15:30) Levofloxacin 500 Mg Premix Inj (Levaquin (06/18/17 15:30) Enteric Path (Stool) (06/18/17 15:39) C Diff Toxin Pcr (06/18/17 15:39) Vascular Access Team Consult/P PRN (06/18/17 17:31) Vascular Poc Ultrasound (06/18/17 ) Vascular Access Team Consult/P PRN (06/18/17 17:34) Labs Laboratory Tests Test 06/18/17 13:35 White Blood Count 9.1 TH/MM3 Red Blood Count 5.30 MIL/MM3 Hemoglobin 16.7 GM/DL Hematocrit 47.5 % Mean Corpuscular Volume 89.6 FL Mean Corpuscular Hemoglobin 31.6 PG Mean Corpuscular Hemoglobin Concent 35.2 % Red Cell Distribution Width 12.9 % Platelet Count 201 TH/MM3 Mean Platelet Volume 8.2 FL Neutrophils (%) (Auto) 90.1 % Lymphocytes (%) (Auto) 5.4 % Monocytes (%) (Auto) 3.2 % Eosinophils (%) (Auto) 1.2 % Basophils (%) (Auto) 0.1 % Neutrophils # (Auto) 8.2 TH/MM3 Lymphocytes # (Auto) 0.5 TH/MM3 Monocytes # (Auto) 0.3 TH/MM3 Eosinophils # (Auto) 0.1 TH/MM3 Basophils # (Auto) 0.0 TH/MM3 CBC Comment DIFF FINAL Differential Comment Blood Urea Nitrogen 20 MG/DL Creatinine 1.11 MG/DL Random Glucose 88 MG/DL Total Protein 7.6 GM/DL Albumin 3.6 GM/DL Calcium Level 8.6 MG/DL Alkaline Phosphatase 91 U/L Aspartate Amino Transf (AST/SGOT) 18 U/L Alanine Aminotransferase (ALT/SGPT) 20 U/L Total Bilirubin 0.8 MG/DL Sodium Level 138 MEQ/L Potassium Level 3.7 MEQ/L Chloride Level 103 MEQ/L Carbon Dioxide Level 27.4 MEQ/L Anion Gap 8 MEQ/L Estimat Glomerular Filtration Rate 47 ML/MIN Lipase 68 U/L [facility] Medical Decision Making Medical Screen Exam Complete: Yes Emergency Medical Condition: Yes Differential Diagnosis Persistent UTI versus dehydration versus C. difficile colitis Narrative Course 82-year-old female presents with diarrhea abdominal cramps and persistent UTI symptoms. The patient was seen last night for the same. She was given ciprofloxacin which she states her primary care doctor told her was resistant. She did have a UTI last night. She has been started on Rocephin, 1 g IV 1 dose. She is also been given a liter of IV fluid. She will be signed out to Dr. Tina Bryan who will follow up on her after her fluids have been infused. I anticipate she will likely be able to go home. Diagnosis Primary Impression: Persistent cystitis Additional Impressions: Dehydration Reported diarrhea and abdominal cramps Marcos Grace MD Jun 18, 2017 15:53
[2017-06-18 17:16] VITALS: BP 148/71; PULSE 77; RESP 15; O2SAT 95
--- NOTE | 2017-06-18 19:30 | PD ---
Physical Exam Date Seen by Provider: Jun 18, 2017 Time Seen by Provider: 19:29 Narrative Accepted in transfer of care from Dr. Grace GENERAL: SKIN: Warm and dry. HEAD: Normocephalic. EYES: No scleral icterus. No injection or drainage. NECK: Supple, trachea midline. No JVD or lymphadenopathy. CARDIOVASCULAR: Regular rate and rhythm without murmurs, gallops, or rubs. RESPIRATORY: Breath sounds equal bilaterally. No accessory muscle use. GASTROINTESTINAL: Abdomen soft, mild lower abdomen tenderness to palpation, no guarding, no rebound, nondistended. MUSCULOSKELETAL: No cyanosis, or edema. BACK: Nontender without obvious deformity. No CVA tenderness. Data Data Last Documented VS Vital Signs Date Time Temp Pulse Resp B/P (MAP) Pulse Ox O2 Delivery O2 Flow Rate FiO2 06/18/17 23:39 06/18/17 22:14 84 18 96 Room Air 06/18/17 12:56 97.3 Orders Orders Complete Blood Count With Diff (06/18/17 13:02) Comprehensive Metabolic Panel (06/18/17 13:02) Lipase (06/18/17 13:02) Sodium Chlor 0.9% 1000 Ml Inj (Ns 1000 M (06/18/17 15:30) Levofloxacin 500 Mg Premix Inj (Levaquin (06/18/17 15:30) Enteric Path (Stool) (06/18/17 15:39) C Diff Toxin Pcr (06/18/17 15:39) Vascular Access Team Consult/P PRN (06/18/17 17:31) Vascular Poc Ultrasound (06/18/17 ) Vascular Access Team Consult/P PRN (06/18/17 17:34) Ct Abd/Pel W/O Iv Contrast (06/18/17 ) Sodium Chlorid 0.9% 500 Ml Inj (Ns 500 M (06/18/17 22:00) Ed Discharge Order (06/18/17 23:01) Admit Order (Ed Use Only) (06/19/17 ) Vital Signs (Adult) Q4H (06/19/17 00:52) Diet Heart Healthy (06/19/17 Breakfast) Activity Oob With Assistance (06/19/17 00:52) Notify Dr: Other (06/19/17 00:52) Labs Laboratory Tests Test 06/18/17 13:35 White Blood Count 9.1 TH/MM3 Red Blood Count 5.30 MIL/MM3 Hemoglobin 16.7 GM/DL Hematocrit 47.5 % Mean Corpuscular Volume 89.6 FL Mean Corpuscular Hemoglobin 31.6 PG Mean Corpuscular Hemoglobin Concent 35.2 % Red Cell Distribution Width 12.9 % Platelet Count 201 TH/MM3 Mean Platelet Volume 8.2 FL Neutrophils (%) (Auto) 90.1 % Lymphocytes (%) (Auto) 5.4 % Monocytes (%) (Auto) 3.2 % Eosinophils (%) (Auto) 1.2 % Basophils (%) (Auto) 0.1 % Neutrophils # (Auto) 8.2 TH/MM3 Lymphocytes # (Auto) 0.5 TH/MM3 Monocytes # (Auto) 0.3 TH/MM3 Eosinophils # (Auto) 0.1 TH/MM3 Basophils # (Auto) 0.0 TH/MM3 CBC Comment DIFF FINAL Differential Comment Blood Urea Nitrogen 20 MG/DL Creatinine 1.11 MG/DL Random Glucose 88 MG/DL Total Protein 7.6 GM/DL Albumin 3.6 GM/DL Calcium Level 8.6 MG/DL Alkaline Phosphatase 91 U/L Aspartate Amino Transf (AST/SGOT) 18 U/L Alanine Aminotransferase (ALT/SGPT) 20 U/L Total Bilirubin 0.8 MG/DL Sodium Level 138 MEQ/L Potassium Level 3.7 MEQ/L Chloride Level 103 MEQ/L Carbon Dioxide Level 27.4 MEQ/L Anion Gap 8 MEQ/L Estimat Glomerular Filtration Rate 47 ML/MIN Lipase 68 U/L [facility] Medical Record Reviewed: Yes Supervised Visit with GARRY: No Interpretation(s) Last Impressions Abdomen/Pelvis CT 06/18/17 0000 Signed Impressions: Service Date/Time: Sunday, June 18, 2017 22:29 - CONCLUSION: 1. The gallbladder is present and contains 2 calcified stones in the fundus. 2. Intrathoracic stomach through a large hiatus hernia. 3. Prominence of the renal pelvis on both sides without evidence of renal or ureteral stones. Differential considerations include multiple bilateral parapelvic cysts and hydronephrosis. Hill Galindo MD CBC & BMP Diagram 06/18/17 13:35 Total Protein 7.6, Albumin 3.6, Calcium Level 8.6, Alkaline Phosphatase 91, Aspartate Amino Transf (AST/SGOT) 18, Alanine Aminotransferase (ALT/SGPT) 20, Total Bilirubin 0.8 Vital Signs Date Time Temp Pulse Resp B/P (MAP) Pulse Ox O2 Delivery O2 Flow Rate FiO2 06/18/17 23:39 06/18/17 22:14 84 18 144/78 (100) 96 Room Air 06/18/17 17:16 77 15 148/71 (96) 95 06/18/17 12:56 97.3 88 18 140/83 (102) 96 Differential Diagnosis Accepted in transfer of care from Dr. Grace; please refer to his dictation Narrative Course Accepted in transfer of care from Dr. Grace;follow up of pending labs and disposition Patient resting comfortably waiting on disposition Patient denies having any dysuria fever chills and has had no diarrheal stools in the emergency department. Patient feels clinically improved after IV fluid bolus. Patient has received a one-time dose of IV antibiotics. CT abdomen and pelvis reveals no acute intra-abdominal or pelvic process. Patient continues to show evidence of peripelvic cysts of the kidneys without hydroureter also identifies persistent fundal gallstones without evidence of obstructive process. Patient has diverticulosis without diverticulitis. Patient is status post appendectomy. Patient this time appears stable for outpatient management tolerating oral hydration well. Patient is encouraged to follow-up with her primary care provider. Upon patient attempting to ambulate with walker assistance appeared to be markedly weak and discloses that she normally does not use a walker does not require walker for assistance and is normally independent and symptoms of generalized weakness requiring walker assisted ambulation is only been since Friday and has been progressively worsening. Neighbor who has come to pickle pumper the patient states this is markedly abnormal for her and in view of her generalized weakness patient's discharge will be canceled and patient will be admitted to observation. Diagnosis Primary Impression: Persistent cystitis Additional Impressions: Dehydration Reported diarrhea and abdominal cramps Renal cyst Admitting Information Admitting Physician Requests: Observation Disposition: 01 DISCHARGE HOME Condition: Stable Tina Bryan MD Jun 18, 2017 19:30
[2017-06-18] MEDS ORDERED: SODIUM CHLORID 0.9% 500 ML INJ 500 ML IV ONE (22:00)
[2017-06-18 22:14] VITALS: BP 144/78; PULSE 84; RESP 18; O2SAT 96
--- NOTE | 2017-06-18 22:49 | RADRPT ---
EXAM DATE/TIME: 06/18/2017 22:29 [place] COMPARISON: No previous studies available for comparison. INDICATIONS : Patient complains of right lower quadrant pain. ORAL CONTRAST: No oral contrast ingested. RADIATION DOSE: 12.25 CTDIvol (mGy) MEDICAL HISTORY : Hypertension. gerd, melanomia, UTI SURGICAL HISTORY : Appendectomy. Cholecystectomy.Tubal ligation. ENCOUNTER: Initial ACUITY: 1 day PAIN SCALE: 5/10 LOCATION: Right lower quadrant TECHNIQUE: Volumetric scanning of the abdomen and pelvis was performed. Using automated exposure control and ad justment of the mA and/or kV according to patient size, radiation dose was kept as low as reasonably achievable to obtain optimal diagnostic quality images. DICOM format image data is available electro nically for review and comparison. FINDINGS: LOWER LUNGS: The visualized lower lungs are clear. Large hiatus hernia measuring 9.7 cm in width containing the f undus of the stomach and a portion of the curvature and some mesenteric fat. The antrum of the stoma ch is intra-abdominal. LIVER: Homogeneous density without lesion for noncontrast technique. There is no dilation of the biliary tr ee. The gallbladder is identified and contains 2 calcifications in the fundal region, both measuring approximately 5 mm.. SPLEEN: Normal size without lesion. PANCREAS: Within normal limits. KIDNEYS: Symmetric renal size. There multiple cystic areas in the right renal pelvis which could represent hy dronephrosis or multiple parapelvic cysts. There are no calcified renal stones or ureteral stones. The right ureter is normal in dimension. Left kidney also contains several cystic areas in the renal pelvis which could represent mild hydronephrosis or parapelvic cysts. No calcified stones in the co llecting system or left ureter. ADRENAL GLANDS: Within normal limits. VASCULAR: There is no aortic aneurysm. BOWEL/MESENTERY: No dilated loops of small or large bowel. No evidence of free fluid. Several small diverticula in t he sigmoid colon without radiographic evidence of diverticulitis. ABDOMINAL WALL: Within normal limits. RETROPERITONEUM: There is no lymphadenopathy. BLADDER: Nondistended. No calcifications within the lumen. REPRODUCTIVE: Normal-sized uterus. INGUINAL: There is no lymphadenopathy or hernia. MUSCULOSKELETAL: Moderate degenerative changes in the posterior elements of the lower lumbar spine. CONCLUSION: 1. The gallbladder is present and contains 2 calcified stones in the fundus. 2. Intrathoracic stomach through a large hiatus hernia. 3. Prominence of the renal pelvis on both sides without evidence of renal or ureteral stones. Differ ential considerations include multiple bilateral parapelvic cysts and hydronephrosis. Hill Galindo MD on June 18, 2017 at 22:41 Board Certified Radiologist. This report was verified electronically.
[2017-06-18] MEDS ORDERED: MACR100C2 PO (22:58)
[2017-06-18] MEDS ORDERED: DOXY100C PO (23:53)
[2017-06-19] MEDS: SODIUM CHLOR 0.9% 1000 ML INJ 1,000 ML IV SCH ×2 (01:25→12:48)
[2017-06-19] MEDS ORDERED: SENNOSIDES 8.6 MG TAB PO PRN (01:30)
[2017-06-19] MEDS ORDERED: ACETAMINOPHEN 325 MG TAB PO PRN (01:30)
[2017-06-19] MEDS ORDERED: ONDANSETRON HCL 4 MG/2 ML VIAL IVP PRN (01:30)
[2017-06-19] MEDS ORDERED: SODIUM CHLORIDE 0.9% FLUSH 10 ML FLUSH IV FLUSH PRN (01:30)
[2017-06-19] MEDS ORDERED: BISACODYL 10 MG SUPP RECTAL PRN (01:30)
[2017-06-19] MEDS ORDERED: NALOXONE HCL 0.4 MG/ML AMP IV PUSH PRN (01:30)
[2017-06-19] MEDS ORDERED: LACTULOSE SYRUP 20 GM/30 ML CUP PO PRN (01:30)
[2017-06-19] MEDS ORDERED: MAGNESIUM HYDROXIDE SUSP 30 ML CUP PO PRN (01:30)
--- NOTE | 2017-06-19 01:40 | HHI.HP ---
[facility] Primary Care Physician Joycelyn Fritz MD Admission Diagnosis Generalized weakness; diarrheal illness Diagnoses: Travel History International Travel<30 Days: No Contact w/Intl Traveler <30 Da: No Traveled to Known Affected Are: No History of Present Illness 42-year-old female with past medical history significant for hypertension, history of previous TIA, GERD and hiatal hernia presents to the emergency department for evaluation of weakness. The patient is seen frequently in the emergency department for treatment of her frequent UTIs. She states that they usually give her Cipro. She was last seen in the emergency department on for dysuria and urinary frequency for which she was given a prescription for ciprofloxacin. Over the past 3 days, the patient has had frequent diarrhea, 4- 5 watery stools daily. She states that she is so weak she has been requiring a walker (patient is usually independently ambulatory). She reports cramping abdominal pain. She also complains of right lower quadrant pain. At the time of her admission, the patient was unable to ambulate even with her walker and was very unsteady when brought to a standing position. Patient denies any chest pain or shortness of breath. No cough or congestion. No nausea or vomiting. No lateralizing signs/symptoms. Review of Systems Except as stated in HPI: all other systems reviewed are Neg Past Family Social History Past Medical History hypertension, history of previous TIA, GERD and hiatal hernia Past Surgical History Partial mandible excision secondary to osteomyelitis Tubal ligation Appendectomy Cholecystectomy Reported Medications Reported Meds & Active Scripts Active Doxycycline Hyclate 100 Mg Cap 100 Mg PO BID 7 Days Cipro (Ciprofloxacin HCl) 500 Mg Tab 500 Mg PO BID Klor-Con 10 (Potassium Chloride) 10 Meq Tab 30 Meq PO DAILY Hydrochlorothiazide 25 Mg Tab 12.5 Mg PO DAILY Reported Sulindac 200 Mg Tab 200 Mg PO BID Enalapril (Enalapril Maleate) 20 Mg Tab 20 Mg PO DAILY Allergies: Coded Allergies: Sulfa (Sulfonamide Antibiotics) (Verified Allergy, Severe, ITCHING, 06/18/17 ) cephalexin (Verified Allergy, Unknown, rash, 06/18/17) Family History Negative for CAD/DM Social History Negative for alcohol, remote history of smoking, negative for substance abuse. Physical Exam Vital Signs Vital Signs Date Time Temp Pulse Resp B/P (MAP) Pulse Ox O2 Delivery O2 Flow Rate FiO2 06/18/17 23:39 06/18/17 22:14 84 18 144/78 (100) 96 Room Air 06/18/17 17:16 77 15 148/71 (96) 95 06/18/17 12:56 97.3 88 18 140/83 (102) 96 Physical Exam GENERAL: female lying in bed SKIN: No rashes, ecchymoses or lesions. Cool and dry. HEAD: Atraumatic. Normocephalic. No temporal or scalp tenderness. EYES: Pupils equal round and reactive. Extraocular motions intact. No scleral icterus. No injection or drainage. ENT: Nose without bleeding, purulent drainage or septal hematoma. Throat without erythema, tonsillar hypertrophy or exudate. Uvula midline. Airway patent. NECK: Trachea midline. No JVD or lymphadenopathy. Supple, nontender, no meningeal signs. CARDIOVASCULAR: Regular rate and rhythm without murmurs, gallops, or rubs. RESPIRATORY: Clear to auscultation. Breath sounds equal bilaterally. No wheezes , rales, or rhonchi. GASTROINTESTINAL: Abdomen soft, mildly tender to palpation in the right lower quadrant, nondistended. No hepato-splenomegaly, or palpable masses. No guarding. MUSCULOSKELETAL: Extremities without clubbing, cyanosis, or edema. No joint tenderness, effusion, or edema noted. No calf tenderness. NEUROLOGICAL: Awake and alert. Cranial nerves II through XII intact. Motor and sensory grossly within normal limits. Normal speech. Laboratory Laboratory Tests Test 06/18/17 13:35 White Blood Count 9.1 Red Blood Count 5.30 Hemoglobin 16.7 Hematocrit 47.5 Mean Corpuscular Volume 89.6 Mean Corpuscular Hemoglobin 31.6 Mean Corpuscular Hemoglobin Concent 35.2 Red Cell Distribution Width 12.9 Platelet Count 201 Mean Platelet Volume 8.2 Neutrophils (%) (Auto) 90.1 Lymphocytes (%) (Auto) 5.4 Monocytes (%) (Auto) 3.2 Eosinophils (%) (Auto) 1.2 Basophils (%) (Auto) 0.1 Neutrophils # (Auto) 8.2 Lymphocytes # (Auto) 0.5 Monocytes # (Auto) 0.3 Eosinophils # (Auto) 0.1 Basophils # (Auto) 0.0 CBC Comment DIFF FINAL Differential Comment Blood Urea Nitrogen 20 Creatinine 1.11 Random Glucose 88 Total Protein 7.6 Albumin 3.6 Calcium Level 8.6 Alkaline Phosphatase 91 Aspartate Amino Transf (AST/SGOT) 18 Alanine Aminotransferase (ALT/SGPT) 20 Total Bilirubin 0.8 Sodium Level 138 Potassium Level 3.7 Chloride Level 103 Carbon Dioxide Level 27.4 Anion Gap 8 Estimat Glomerular Filtration Rate 47 Lipase 68 Result Diagram: 06/18/175 06/18/171334 Caprini VTE Risk Assessment Caprini VTE Risk Assessment: Mod/High Risk (score >= 2) Caprini Risk Assessment Model Point Value = 1 Point Value = 2 Point Value = 3 Point Value = 5 Age 41-60 Minor surgery BMI > 25 kg/m2 Swollen legs Varicose veins or History of unexplained or recurrent spontaneous Oral contraceptives or hormone replacement Sepsis (< 1 month) Serious lung disease, including pneumonia (< 1 month) Abnormal pulmonary function Acute myocardial infarction Congestive heart failure (< 1 month) History of inflammatory bowel disease Medical patient at bed rest Age 61-74 Arthroscopic surgery Major open surgery (> 45 min) Laparoscopic surgery (> 45 min) Malignancy Confined to bed (> 72 hours) Immobilizing plaster cast Central venous access Age >= 75 History of VTE Family history of VTE Factor V Leiden Prothrombin [id number] Lupus anticoagulant Anticardiolipin antibodies Elevated serum homocysteine Heparin-induced thrombocytopenia Other congenital or acquired thrombophilia Stroke (< 1 month) Elective arthroplasty Hip, pelvis, or leg fracture Acute spinal cord injury (< 1 month) Prophylaxis Regimen Total Risk Factor Score Risk Level Prophylaxis Regimen 0-1 Low Early ambulation 2 Moderate Order ONE of the following: *Sequential Compression Device (SCD) *Heparin 5000 units SQ BID 3-4 Higher Order ONE of the following medications: *Heparin 5000 units SQ TID *Enoxaparin/Lovenox 40 mg SQ daily (WT < 150 kg, CrCl > 30 mL/min) *Enoxaparin/Lovenox 30 mg SQ daily (WT < 150 kg, CrCl > 10-29 mL/min) *Enoxaparin/Lovenox 30 mg SQ BID (WT < 150 kg, CrCl > 30 mL/min) AND/OR *Sequential Compression Device (SCD) 5 or more Highest Order ONE of the following medications: *Heparin 5000 units SQ TID (Preferred with Epidurals) *Enoxaparin/Lovenox 40 mg SQ daily (WT < 150 kg, CrCl > 30 mL/min) *Enoxaparin/Lovenox 30 mg SQ daily (WT < 150 kg, CrCl > 10-29 mL/min) *Enoxaparin/Lovenox 30 mg SQ BID (WT < 150 kg, CrCl > 30 mL/min) AND *Sequential Compression Device (SCD) Assessment and Plan Assessment and Plan Assessment/plan: 1. Diarrhea/abdominal pain/weakness Stool studies pending C. difficile pending IV fluid hydration CT of the abdomen unremarkable for acute process, patient with renal cysts stable from January Weakness likely secondary to above symptoms, physical therapy consulted Anticipate discharge once patient has returned to baseline 2. Chronic kidney disease Creatinine 1.11, baseline Monitor renal function 3. Frequent urinary tract infections UA on 06/16/17 showed moderate leukocyte esterase with 8 squamous epithelial cells , UTI unlikely Repeat if patient continues to complain of dysuria 4. Hypertension Continue home medications FEN Heart healthy diet NS at 70 cc/hr Electrolytes: monitor and replete prn Heparin Sayda Arias MD Jun 19, 2017 01:40
[2017-06-19 03:14] VITALS: BP 133/93; PULSE 77; RESP 18; O2SAT 96
[2017-06-19 06:47] VITALS: BP 107/58; PULSE 73; RESP 16; O2SAT 95
--- NOTE | 2017-06-19 11:58 | HHI.PR ---
Subjective Remarks Follow up for diarrhea, inability to ambulate. The patient reports feeling better today however continues to have loose stools. She reports 3 episodes of diarrhea so far today. She reports occasional nausea, but no vomiting. Denies any specific abdominal pain, however is tender in the epigastric region on exam. Denies fevers/chills. Denies any sick contacts, recent travel, or eating anything out of the ordinary. Denies any other medical complaints at this time. Objective Vitals Vital Signs Date Time Temp Pulse Resp B/P (MAP) Pulse Ox O2 Delivery O2 Flow Rate FiO2 06/19/17 06:47 73 16 107/58 (74) 95 Room Air 06/19/17 03:14 77 18 133/93 (106) 96 Room Air 06/18/17 23:39 06/18/17 22:14 84 18 144/78 (100) 96 Room Air 06/18/17 17:16 77 15 148/71 (96) 95 06/18/17 12:56 97.3 88 18 140/83 (102) 96 I/O 06/18/17 06/18/17 06/18/17 06/19/17 06/19/17 06/19/17 07:00 15:00 23:00 07:00 15:00 23:00 Intake Total 1100 ml Output Total 650 ml Balance 450 ml Intake IV Total 1100 ml Output Urine Total 650 ml # Voids 2 Result Diagram: 06/18/17 1335 06/18/17 1335 Imaging Last Impressions Abdomen/Pelvis CT 06/18/17 0000 Signed Impressions: Service Date/Time: Sunday, June 18, 2017 22:29 - CONCLUSION: 1. The gallbladder is present and contains 2 calcified stones in the fundus. 2. Intrathoracic stomach through a large hiatus hernia. 3. Prominence of the renal pelvis on both sides without evidence of renal or ureteral stones. Differential considerations include multiple bilateral parapelvic cysts and hydronephrosis. Hill Galindo MD Objective Remarks TTP at epigastric region. GENERAL: Well-nourished, well-developed patient in NAD. SKIN: Warm and dry. No rash. HEAD: Normocephalic. Atraumatic. EYES: Pupils equal and round. No scleral icterus. No injection or drainage. ENT: No nasal bleeding or discharge. Mucous membranes pink and moist. NECK: Supple. Trachea midline. CARDIOVASCULAR: Regular rate and rhythm. S1, S2 noted. No murmur appreciated. RESPIRATORY: No accessory muscle use. Clear to auscultation. Breath sounds equal bilaterally. GASTROINTESTINAL: Abdomen soft, non-tender, nondistended. Normoactive bowel sounds x4. MUSCULOSKELETAL: No obvious deformities. Extremities without clubbing, cyanosis , or edema. NEUROLOGICAL: Awake and alert. No obvious cranial nerve deficits. Motor grossly within normal limits. 5/5 muscle strength in bilateral upper and lower extremities. Normal speech. PSYCHIATRIC: Appropriate mood and affect; insight and judgment normal. Medications and IVs Current Medications Medications (Trade) Dose Ordered Sig/Carla Route Start Time Stop Time Status Last Admin Sodium Chloride 1,000 ml @ 70 mls/hr [id number] IV 06/19/17 01:25 06/19/17 23:55 06/19/17 12:48 (NS Flush) 2 ml UNSCH PRN IV FLUSH 06/19/17 01:30 (NS Flush) 2 ml BID IV FLUSH 06/19/17 09:00 06/19/17 12:48 (Tylenol) 650 mg Q4H PRN PO 06/19/17 01:30 (Zofran Inj) 4 mg Q6H PRN IVP 06/19/17 01:30 (Heparin Inj) 5,000 units Q12H SQ 06/19/17 09:00 06/19/17 12:47 (Narcan Inj) 0.4 mg UNSCH PRN IV PUSH 06/19/17 01:30 (Kia-Colace) 1 tab BID PO 06/19/17 09:00 (Milk Of Magnesia Liq) 30 ml Q12H PRN PO 06/19/17 01:30 (Senokot) 17.2 mg Q12H PRN PO 06/19/17 01:30 (Dulcolax Supp) 10 mg DAILY PRN RECTAL 06/19/17 01:30 (Lactulose Liq) 30 ml DAILY PRN PO 06/19/17 01:30 (Vasotec) 20 mg DAILY PO 06/19/17 09:00 06/19/17 12:46 (Hydrodiuril) 12.5 mg DAILY PO 06/19/17 09:00 06/19/17 12:47 (Lactinex) 1 tab TID PO 06/19/17 18:00 (Imodium) 2 mg Q6H PRN PO 06/19/17 13:30 A/P Assessment and Plan 42-year-old female with past medical history significant for hypertension, history of previous TIA, GERD and hiatal hernia presents to the emergency department for evaluation of weakness and diarrhea. Norovirus: patient presented with 3 days of diarrhea/abdominal pain/weakness. -CT abdomen reviewed, unremarkable for acute process, patient with renal cysts stable from January -C. difficile negative -Stool studies positive for Norovirus -Supportive treatment with IVF hydration, antiemetics prn -Give Lactinex tid, imodium prn Generalized Weakness: suspect secondary to above -physical therapy consulted, recommends [facility] -case management consulted Chronic kidney disease, stage III: chronic, Cr 1.1, at baseline -on IVF as above -avoid nephrotoxins -Monitor renal function Frequent urinary tract infections -UA on 06/16/17 showed moderate leukocyte esterase with 8 squamous epithelial cells, UTI unlikely -Repeat if patient continues to complain of dysuria Hypertension: chronic -Continue home medications DVT Prophylaxis: Heparin sq Discharge Planning Hopefully discharge tomorrow if diarrhea improves. Paloma Hurtado PA-C Jun 19, 2017 11:58 am
[2017-06-19 12:39] VITALS: BP 146/93; PULSE 76; RESP 20; TEMP 98.8; O2SAT 96
[2017-06-19] MEDS: ENALAPRIL MALEATE 10 MG TAB PO SCH (12:46)
[2017-06-19] MEDS: HEPARIN SODIUM - SQ 10,000 UNITS/ML VIAL SQ SCH ×2 (12:47→22:40)
[2017-06-19] MEDS: HYDROCHLOROTHIAZIDE 25 MG TAB PO SCH (12:47)
[2017-06-19] MEDS: DOCUSATE SODIUM 50 MG/SENNA 8.6 MG TAB PO SCH ×2 (12:48→21:00)
[2017-06-19] MEDS: SODIUM CHLORIDE 0.9% FLUSH 10 ML FLUSH IV FLUSH SCH ×2 (12:48→21:00)
[2017-06-19] MEDS ORDERED: LOPERAMIDE HCL 2 MG CAP PO PRN (13:30)
[2017-06-19] MEDS ORDERED: LACTOBACILLUS ACIDOPHILUS TAB PO ONE (13:30)
--- NOTE | 2017-06-19 14:53 | HHI.FF ---
Face to Face Verification Diagnosis: (1) Generalized weakness (2) Gastroenteritis due to norovirus (3) CKD (chronic kidney disease), stage III (4) Chronic UTI (5) HTN (hypertension) Physical Therapy Order: Evaluate and Treat, Improve ambulation, Strength and gait training Home Health Nursing Order: Medical education Signs/symptoms of disease process Nursing assessment with vital signs I have seen patient Nuvia Carnes on 06/19/17. My clinical findings support the need for the requested home health care services because: Ltd mobility - disease progression Deconditioned w/ increased weakness Limited ability to care for self I certify that my clinical findings support that this patient is homebound because: Unsteady gait/balance Unsafe to leave home unassisted Unable to use public transportation Paloma Hurtado PA-C Jun 19, 2017 2:53 pm
[2017-06-19] MEDS ORDERED: LACT PO (14:55)
[2017-06-19] MEDS ORDERED: LOPE2CAP2 PO (14:55)
[2017-06-19] MEDS ORDERED: SODIUM CHLOR 0.9% 1000 ML INJ 1,000 ML IV SCH (15:00)
[2017-06-19 16:11] VITALS: BP 135/88; PULSE 76; RESP 20; TEMP 98; O2SAT 98
[2017-06-19] MEDS: LACTOBACILLUS ACIDOPHILUS TAB PO SCH (22:39)
[2017-06-20] VITALS (7 sets, daily range): BP systolic 123–171; BP diastolic 59–83; PULSE 63–79; RESP 16–24; TEMP 97.5–98.1; O2SAT 94–97
--- NOTE | 2017-06-20 08:39 | HHI.PR ---
Subjective Remarks Follow-up gastroenteritis. Complained of loose stools today. Denies nausea, vomiting abdominal pain. Discussed with RN Objective Vitals Vital Signs Date Time Temp Pulse Resp B/P (MAP) Pulse Ox O2 Delivery O2 Flow Rate FiO2 06/20/17 08:11 97.5 71 16 130/67 (88) 95 06/20/17 01:07 97.8 74 18 152/73 (99) 95 06/19/17 16:11 98.0 76 20 135/88 (104) 98 06/19/17 12:39 98.8 76 20 146/93 (110) 96 Result Diagram: 06/18/17 1335 06/18/17 1335 Imaging Last Impressions Abdomen/Pelvis CT 06/18/17 0000 Signed Impressions: Service Date/Time: Sunday, June 18, 2017 22:29 - CONCLUSION: 1. The gallbladder is present and contains 2 calcified stones in the fundus. 2. Intrathoracic stomach through a large hiatus hernia. 3. Prominence of the renal pelvis on both sides without evidence of renal or ureteral stones. Differential considerations include multiple bilateral parapelvic cysts and hydronephrosis. Hill Galindo MD Objective Remarks GENERAL: Well-nourished, well-developed patient in NAD. SKIN: Warm and dry. No rash. CARDIOVASCULAR: Regular rate and rhythm. S1, S2 noted. No murmur appreciated. RESPIRATORY: No accessory muscle use. Clear to auscultation. Breath sounds equal bilaterally. GASTROINTESTINAL: Abdomen soft, non-tender, nondistended. Normoactive bowel sounds x4. MUSCULOSKELETAL: No obvious deformities. Extremities without clubbing, cyanosis , or edema. NEUROLOGICAL: Awake and alert. No obvious cranial nerve deficits. Motor grossly within normal limits. 5/5 muscle strength in bilateral upper and lower extremities. Normal speech. PSYCHIATRIC: Appropriate mood and affect; insight and judgment normal. A/P Problem List: (1) Diarrhea ICD Code: R19.7 - Diarrhea Status: Acute (2) Gastroenteritis due to norovirus ICD Code: A08.11 - Acute gastroenteropathy due to [place] agent Assessment and Plan 42-year-old female with past medical history significant for hypertension, history of previous TIA, GERD and hiatal hernia presents to the emergency department for evaluation of weakness and diarrhea. Norovirus: patient presented with 3 days of diarrhea/abdominal pain/weakness. This is somewhat limited however patient still having loose stools already had 4 episodes today she would not be a safe discharge at this time high likelihood of readmission with dehydration -CT abdomen reviewed, unremarkable for acute process, patient with renal cysts stable from January -C. difficile negative -Stool studies positive for Norovirus -Supportive treatment with IVF hydration, antiemetics prn -Give Lactinex tid, imodium prn Generalized Weakness: suspect secondary to above -physical therapy consulted, recommends [facility] -case management consulted Chronic kidney disease, stage III: chronic, Cr 1.1, at baseline -on IVF as above -avoid nephrotoxins -Monitor renal function Frequent urinary tract infections -UA on 06/16/17 showed moderate leukocyte esterase with 8 squamous epithelial cells, UTI unlikely -Repeat if patient continues to complain of dysuria Hypertension: chronic -Continue home medications DVT Prophylaxis: Heparin sq Discharge Planning Not ready for discharge because of ongoing diarrhea Sunil Bowie MD Jun 20, 2017 08:39
[2017-06-20 09:03] LABS: BASOPHIL % 0.5 % (0.0-2.0); EOSINOPHIL # 0.1 TH/MM3 (0-0.4); EOSINOPHIL % 3.2 % (0.0-4.0); HEMATOCRIT 43.1 % (35.0-46.0); LYMPH % 18.5 % (9.0-44.0); LYMPHOCYTE # 0.8 TH/MM3 (1.0-4.8); MEAN CORPUSCULAR HGB CONC 34.9 % (32.0-36.0); MEAN PLATELET VOLUME 8.2 FL (7.0-11.0); MONO % 10.9 % (0.0-8.0); MONOCYTE # 0.5 TH/MM3 (0-0.9); NEUT % 66.9 % (16.0-70.0); PLATELET COUNT 183 TH/MM3 (150-450); RED BLOOD COUNT 4.84 MIL/MM3 (4.00-5.30); RED CELL DISTRIBUTION WIDTH 13.1 % (11.6-17.2); WHITE BLOOD COUNT 4.5 TH/MM3 (4.0-11.0)
[2017-06-20 09:33] LABS: BICARBONATE 27.6 MEQ/L (21.0-32.0); CALCIUM 8.7 MG/DL (8.5-10.1); CREATININE 0.94 MG/DL (0.50-1.00)
[2017-06-20] MEDS: HEPARIN SODIUM - SQ 10,000 UNITS/ML VIAL SQ SCH ×2 (09:38→20:45)
[2017-06-20] MEDS: LACTOBACILLUS ACIDOPHILUS TAB PO SCH ×3 (09:39→16:05)
[2017-06-20] MEDS: SODIUM CHLORIDE 0.9% FLUSH 10 ML FLUSH IV FLUSH SCH ×2 (09:40→21:00)
[2017-06-20] MEDS: HYDROCHLOROTHIAZIDE 25 MG TAB PO SCH (09:40)
[2017-06-20] MEDS: DOCUSATE SODIUM 50 MG/SENNA 8.6 MG TAB PO SCH ×2 (09:41→20:04)
[2017-06-20] MEDS: ENALAPRIL MALEATE 10 MG TAB PO SCH (09:44)
[2017-06-20] MEDS ORDERED: POTASSIUM CHLORIDE 20 MEQ CONTROLLED RELEASE TAB PO ONE (14:30)
[2017-06-20] MEDS ORDERED: SODIUM CHLOR 0.9% 1000 ML INJ 1,000 ML IV SCH (15:15)
[2017-06-20] MEDS ORDERED: NS + KCL 20 MEQ INJ 1,000 ML IV SCH (17:00)
[2017-06-21 03:34] VITALS: BP 134/78; PULSE 64; RESP 18; TEMP 97.9; O2SAT 94
--- NOTE | 2017-06-21 07:19 | HHI.PR ---
Subjective Remarks Follow-up gastroenteritis. Feeling better no more diarrhea since last night and wants to go home. Tolerating diet. Discussed with nursing Objective Vitals Vital Signs Date Time Temp Pulse Resp B/P (MAP) Pulse Ox O2 Delivery O2 Flow Rate FiO2 06/21/17 03:34 97.9 64 18 134/78 (96) 94 06/20/17 23:24 98.1 65 18 145/80 (101) 94 06/20/17 19:58 98.0 63 18 123/59 (80) 97 06/20/17 15:41 97.5 72 16 133/75 (94) 94 06/20/17 13:04 79 18 135/75 (95) 96 06/20/17 11:58 97.5 78 24 171/83 (112) 94 06/20/17 08:11 97.5 71 16 130/67 (88) 95 I/O 06/20/17 06/20/17 06/20/17 06/21/17 06/21/17 06/21/17 07:00 15:00 23:00 07:00 15:00 23:00 # Voids 2 # Bowel Movements 4 0 Result Diagram: 06/20/17 0808 06/20/17 0808 Imaging Last Impressions Abdomen/Pelvis CT 06/18/17 0000 Signed Impressions: Service Date/Time: Sunday, June 18, 2017 22:29 - CONCLUSION: 1. The gallbladder is present and contains 2 calcified stones in the fundus. 2. Intrathoracic stomach through a large hiatus hernia. 3. Prominence of the renal pelvis on both sides without evidence of renal or ureteral stones. Differential considerations include multiple bilateral parapelvic cysts and hydronephrosis. Hill Galindo MD Objective Remarks GENERAL: Well-nourished, well-developed patient in NAD. No signs of dehydration SKIN: Warm and dry. No rash. CARDIOVASCULAR: Regular rate and rhythm. S1, S2 noted. No murmur appreciated. RESPIRATORY: No accessory muscle use. Clear to auscultation. Breath sounds equal bilaterally. GASTROINTESTINAL: Abdomen soft, non-tender, nondistended. Normoactive bowel sounds x4. MUSCULOSKELETAL: No obvious deformities. Extremities without clubbing, cyanosis , or edema. NEUROLOGICAL: Awake and alert. No obvious cranial nerve deficits. Motor grossly within normal limits. 5/5 muscle strength in bilateral upper and lower extremities. Normal speech. PSYCHIATRIC: Appropriate mood and affect; insight and judgment normal. Procedures none A/P Problem List: (1) Diarrhea ICD Code: R19.7 - Diarrhea Status: Acute (2) Gastroenteritis due to norovirus ICD Code: A08.11 - Acute gastroenteropathy due to [place] agent Assessment and Plan 42-year-old female with past medical history significant for hypertension, history of previous TIA, GERD and hiatal hernia presents to the emergency department for evaluation of weakness and diarrhea. Norovirus: patient presented with 3 days of diarrhea/abdominal pain/weakness. This is resolving -CT abdomen reviewed, unremarkable for acute process, patient with renal cysts stable from January -C. difficile negative -Stool studies positive for Norovirus -Supportive treatment with IVF hydration, antiemetics prn -Give Lactinex tid, imodium prn Generalized Weakness: suspect secondary to above. Improving -physical therapy consulted, recommends [facility] -case management consulted Chronic kidney disease, stage III: chronic, Cr 1.1, at baseline -on IVF as above -avoid nephrotoxins -Monitor renal function Frequent urinary tract infections -UA on 06/16/17 showed moderate leukocyte esterase with 8 squamous epithelial cells, UTI unlikely -Repeat if patient continues to complain of dysuria Hypertension: chronic -Continue home medications DVT Prophylaxis: Heparin sq Discharge Planning Stable for discharge Sunil Bowie MD Jun 21, 2017 07:19
[2017-06-21 07:35] LABS: BICARBONATE 27.9 MEQ/L (21.0-32.0); CALCIUM 8.6 MG/DL (8.5-10.1); CREATININE 0.88 MG/DL (0.50-1.00)
[2017-06-21 07:46] VITALS: BP 127/68; PULSE 62; RESP 16; TEMP 97.6; O2SAT 95
[2017-06-21] MEDS: DOCUSATE SODIUM 50 MG/SENNA 8.6 MG TAB PO SCH (09:00)
[2017-06-21] MEDS: HEPARIN SODIUM - SQ 10,000 UNITS/ML VIAL SQ SCH (09:00)
[2017-06-21] MEDS: ENALAPRIL MALEATE 10 MG TAB PO SCH (09:00)
[2017-06-21 12:16] VITALS: BP 132/78; PULSE 65; RESP 16; TEMP 97.5; O2SAT 96
[2017-06-21] MEDS: HYDROCHLOROTHIAZIDE 25 MG TAB PO SCH (12:30)
[2017-06-21] MEDS: SODIUM CHLORIDE 0.9% FLUSH 10 ML FLUSH IV FLUSH SCH (12:33)
[2017-06-21] MEDS: LACTOBACILLUS ACIDOPHILUS TAB PO SCH (12:35)
--- NOTE | 2017-06-21 14:12 | HHI.DS ---
Discharge Summary Admission Date Jun 19, 2017 at 00:55 Discharge Date: Jun 21, 2017 Admitting Diagnosis Generalized weakness; diarrheal illness (1) Diarrhea ICD Code: R19.7 - Diarrhea Diagnosis: Principal Status: Acute (2) Gastroenteritis due to norovirus ICD Code: A08.11 - Acute gastroenteropathy due to [place] agent Diagnosis: Principal Procedures none Brief History - From Admission 42-year-old female with past medical history significant for hypertension, history of previous TIA, GERD and hiatal hernia presents to the emergency department for evaluation of weakness. The patient is seen frequently in the emergency department for treatment of her frequent UTIs. She states that they usually give her Cipro. She was last seen in the emergency department on for dysuria and urinary frequency for which she was given a prescription for ciprofloxacin. Over the past 3 days, the patient has had frequent diarrhea, 4- 5 watery stools daily. She states that she is so weak she has been requiring a walker (patient is usually independently ambulatory). She reports cramping abdominal pain. She also complains of right lower quadrant pain. At the time of her admission, the patient was unable to ambulate even with her walker and was very unsteady when brought to a standing position. Patient denies any chest pain or shortness of breath. No cough or congestion. No nausea or vomiting. No lateralizing signs/symptoms. CBC/BMP: 06/20/17 0808 06/21/17 0600 Significant Findings Laboratory Tests Test 06/19/17 07:30 06/20/17 08:08 06/21/17 06:00 Monocytes (%) (Auto) 10.9 % (0.0-8.0) Lymphocytes # (Auto) 0.8 TH/MM3 (1.0-4.8) Potassium Level 3.2 MEQ/L (3.5-5.1) Estimat Glomerular Filtration Rate 57 ML/MIN (>89) 61 ML/MIN (>89) Imaging Last Impressions Abdomen/Pelvis CT 06/18/17 0000 Signed Impressions: Service Date/Time: Sunday, June 18, 2017 22:29 - CONCLUSION: 1. The gallbladder is present and contains 2 calcified stones in the fundus. 2. Intrathoracic stomach through a large hiatus hernia. 3. Prominence of the renal pelvis on both sides without evidence of renal or ureteral stones. Differential considerations include multiple bilateral parapelvic cysts and hydronephrosis. Hill Galindo MD PE at Discharge GENERAL: Well-nourished, well-developed patient in NAD. No signs of dehydration SKIN: Warm and dry. No rash. CARDIOVASCULAR: Regular rate and rhythm. S1, S2 noted. No murmur appreciated. RESPIRATORY: No accessory muscle use. Clear to auscultation. Breath sounds equal bilaterally. GASTROINTESTINAL: Abdomen soft, non-tender, nondistended. Normoactive bowel sounds x4. MUSCULOSKELETAL: No obvious deformities. Extremities without clubbing, cyanosis , or edema. NEUROLOGICAL: Awake and alert. No obvious cranial nerve deficits. Motor grossly within normal limits. 5/5 muscle strength in bilateral upper and lower extremities. Normal speech. PSYCHIATRIC: Appropriate mood and affect; insight and judgment normal. Hospital Course 42-year-old female with past medical history significant for hypertension, history of previous TIA, GERD and hiatal hernia presents to the emergency department for evaluation of weakness and diarrhea. Norovirus: patient presented with 3 days of diarrhea/abdominal pain/weakness. This is resolving -CT abdomen reviewed, unremarkable for acute process, patient with renal cysts stable from January -C. difficile negative -Stool studies positive for Norovirus -Supportive treatment with IVF hydration, antiemetics prn -Give Lactinex tid, imodium prn Generalized Weakness: suspect secondary to above. Improving -physical therapy consulted, recommends [facility] -case management consulted Chronic kidney disease, stage III: chronic, Cr 1.1, at baseline -on IVF as above -avoid nephrotoxins -Monitor renal function Frequent urinary tract infections -UA on 06/16/17 showed moderate leukocyte esterase with 8 squamous epithelial cells, UTI unlikely -Repeat if patient continues to complain of dysuria Hypertension: chronic -Continue home medications DVT Prophylaxis: Heparin sq Pt Condition on Discharge: Stable Discharge Disposition: Disch w/ Home Health Serv Discharge Time: > 30 minutes Discharge Instructions DIET: Follow Instructions for: Heart Healthy Diet Activities you can perform: Regular-No Restrictions Activities to Avoid: Driving Follow up Referrals: PCP Follow-up - 1 Week with Joycelyn Fritz MD New Medications: Lactobacillus Acidophilus (Acidophilus/l-Sporogenes) 35 Million Cell-25 Million Cell Tab 1 TAB PO TID for diarrhea, #21 TAB Loperamide HCl (Hm Loperamide HCl) 2 Mg Cap 2 MG PO Q6H PRN for DIARRHEA, #28 CAP Continued Medications: Enalapril (Enalapril) 20 Mg Tab 20 MG PO DAILY, #30 TAB 0 Refills Hydrochlorothiazide (Hydrochlorothiazide) 25 Mg Tab 12.5 MG PO DAILY for Blood Pressure Management, #30 TAB 6 Refills Potassium Chloride ER (Klor-Con 10) 10 Meq Tab 30 MEQ PO DAILY for Electrolyte Replacement, #30 TAB 6 Refills Sulindac (Sulindac) 200 Mg Tab 200 MG PO BID for Pain Management, #60 TAB 0 Refills Discontinued Medications: Ciprofloxacin (Cipro) 500 Mg Tab 500 MG PO BID for Infection, #14 TAB 0 Refills Sunil Bowie MD Jun 21, 2017 14:12
== END 2017-06-21 13:40 | disposition home or self-care (01) ==
LOC: NEPC 12:24 → NEDA 06-19 00:55 → NEDH 06-19 05:03 → NEDA 06-19 09:35 → NEPGCP 06-19 10:30
PROVIDERS: ADMIT Internal Medicine; ATTEND Internal Medicine
DX: A08.11 Acute gastroenteropathy due to Norwalk agent (principal); N30.20 Other chronic cystitis without hematuria; E86.0 Dehydration; I12.9 Hypertensive chronic kidney disease with stage 1 through stage 4 chronic kidney disease, or unspecified chronic kidney disease; N18.3 Chronic kidney disease, stage 3 (moderate); K21.9 Gastro-esophageal reflux disease without esophagitis; K44.9 Diaphragmatic hernia without obstruction or gangrene; K57.30 Diverticulosis of large intestine without perforation or abscess without bleeding; K80.20 Calculus of gallbladder without cholecystitis without obstruction; N28.1 Cyst of kidney, acquired; M19.90 Unspecified osteoarthritis, unspecified site; Z87.440 Personal history of urinary (tract) infections; Z86.73 Personal history of transient ischemic attack (TIA), and cerebral infarction without residual deficits; Z85.820 Personal history of malignant melanoma of skin
CPT/HCPCS: 74176; 76937; 80048; 80053; 83690; 83735; 85025; 87493; 87506; 96361; 96365; 96366; 96372; 97161; 99285; G0378; G8987; G8988; J1644; J1956; J3480; J7030; J7040

== ENCOUNTER 2017-09-27 09:34 | Emergency (ER) | payer MEDICARE, MEDICAID ==
[~2017-09-27] VITALS: Ht 157.5 cm; Wt 90.0 kg
[~2017-09-27 09:34] MED LIST changes: -CIPR-9 PO; +LACT PO; +LOPE2CAP2 PO
[2017-09-27 09:35] VITALS: BP 144/70; PULSE 71; RESP 18; TEMP 97.4; O2SAT 98
--- NOTE | 2017-09-27 09:55 | PD ---
HPI Chief Complaint: Complaint Time Seen by Provider: 09:55 Travel History International Travel<30 days: No Contact w/Intl Traveler<30days: No Traveled to known affect area: No History of Present Illness HPI 82-year-old female came to the emergency room saying that she just wanted to make sure that she was not having any UTIs and she has history of frequent UTIs. She is going to have a surgery next week. Patient is well-known to this emergency department and has come here multiple times with UTI symptoms. She has had positive UTIs on multiple occasions as well. There was a UA sent from triage for this. No history of fever or chills. Vital signs were relatively stable. Patient is awake and answering questions appropriately. She brought herself and and has no difficulty ambulating. Patient does not really have any symptoms per se but just a hunch that she may have UTI. No history of any pain anywhere. She also complained of itching everywhere for past 1 week. [facility] Past Medical History Narrative Medical List of her past medical, surgical, social and family history is reviewed from the nursing note. Arthritis: Yes Asthma: No Autoimmune Disease: No Blood Disorders: No Anxiety: No Depression: No Heart Rhythm Problems: No Cancer: Yes (MELANOMA) Cardiac Catheterization: No Cardiovascular Problems: Yes (HTN) High Cholesterol: No Chemotherapy: No Chest Pain: No Congestive Heart Failure: No COPD: No Cerebrovascular Accident: Yes Diabetes: No Diminished Hearing: No Endocrine: No Gastrointestinal Disorders: Yes GERD: Yes Glaucoma: No Genitourinary: Yes (UTI) Headaches: Yes Hepatitis: No Hiatal Hernia: No Hypertension: Yes Immune Disorder: No Implanted Vascular Access Dvce: No Kidney Stones: No Musculoskeletal: Yes (chronic back pain) Neurologic: No Psychiatric: No Reproductive: No Respiratory: No Immunizations Current: Yes Migraines: No Myocardial Infarction: No Radiation Therapy: No Renal Failure: No Seizures: No Sickle Cell Disease: No Sleep Apnea: No Thyroid Disease: No Ulcer: No PNEUMOCCOCAL Vaccine (Year): 2 Menopausal: Yes : 7 Para: 4 Miscarriage: 3 Tubal Ligation: Yes Past Surgical History Abdominal Surgery: Yes AICD: No Appendectomy: Yes Arteriovenous Shunt: No Cardiac Surgery: No Cholecystectomy: Yes Coronary Artery Bypass Graft: No Ear Surgery: No Endocrine Surgery: No Eye Surgery: No Gynecologic Surgery: Yes (TUBAL LIGATIONS ) Insulin Pump: No Joint Replacement: No Neurologic Surgery: No Pacemaker: No Thoracic Surgery: No Tonsillectomy: Yes Other Surgery: Yes (L MANDIBLE SURGERY ) Social History Alcohol Use: No Tobacco Use: No (quit long time ago ) Substance Use: No Allergies-Medications (Allergen,Severity, Reaction): Coded Allergies: Sulfa (Sulfonamide Antibiotics) (Verified Allergy, Severe, ITCHING, 06/18/17 ) cephalexin (Verified Allergy, Intermediate, rash, 06/20/17) Comments List of her allergies reviewed from the nursing note. Reported Meds & Prescriptions Reported Meds & Active Scripts Active Acidophilus/l-Sporogenes (Lactobacillus Acidophilus) 35 Million Cell-25 Million Cell Tab 1 Tab PO TID Hm Loperamide HCl (Loperamide HCl) 2 Mg Cap 2 Mg PO Q6H PRN Klor-Con 10 (Potassium Chloride) 10 Meq Tab 30 Meq PO DAILY Hydrochlorothiazide 25 Mg Tab 12.5 Mg PO DAILY Reported Sulindac 200 Mg Tab 200 Mg PO BID Enalapril (Enalapril Maleate) 20 Mg Tab 20 Mg PO DAILY Narrative Medication List of her home medications reviewed from the nursing note. Review of Systems Except as stated in HPI: all other systems reviewed are Neg Physical Exam Narrative GENERAL: Awake, alert, elderly, no obvious distress SKIN: Focused skin assessment warm/dry. No rash noted HEAD: Atraumatic. Normocephalic. EYES: Pupils equal and round. No scleral icterus. No injection or drainage. ENT: No nasal bleeding or discharge. Mucous membranes pink and moist. NECK: Trachea midline. No JVD. CARDIOVASCULAR: Regular rate and rhythm. No murmur appreciated. RESPIRATORY: No accessory muscle use. Clear to auscultation. Breath sounds equal bilaterally. GASTROINTESTINAL: Abdomen soft, non-tender, nondistended. Hepatic and splenic margins not palpable. MUSCULOSKELETAL: No obvious deformities. No clubbing. No cyanosis. No edema. NEUROLOGICAL: Awake and alert. No obvious cranial nerve deficits. Motor grossly within normal limits. Normal speech. PSYCHIATRIC: Appropriate mood and affect; insight and judgment normal. Data Data Last Documented VS Vital Signs Date Time Temp Pulse Resp B/P (MAP) Pulse Ox O2 Delivery O2 Flow Rate FiO2 09/27/17 09:35 97.4 71 18 144/70 (94) 98 Orders Orders Urinalysis - C+S If Indicated (09/27/17 09:36) Ed Discharge Order (09/27/17 10:19) Labs Laboratory Tests Test 09/27/17 09:40 Urine Color YELLOW Urine Turbidity HAZY Urine pH 5.0 Urine Specific [place] 1.012 Urine Protein NEG mg/dL Urine Glucose (UA) NEG mg/dL Urine Ketones NEG mg/dL Urine Occult Blood SMALL Urine Nitrite NEG Urine Bilirubin NEG Urine Urobilinogen LESS THAN 2 mg/dL Urine Leukocyte Esterase NEG Urine RBC 3 /hpf Urine WBC 1 /hpf Urine Squamous Epithelial Cells 1 /hpf Urine Bacteria RARE /hpf Urine Mucus FEW /lpf Microscopic Urinalysis Comment CULT NOT INDICATED MDM Medical Decision Making Medical Screen Exam Complete: Yes Emergency Medical Condition: Yes Medical Record Reviewed: Yes Differential Diagnosis UTI, normal exam Narrative Course 10:20 AM UA is within normal limit. I will discharge the patient home. She has been asked to follow-up with her primary care. Procedures EKG Prior to Arrival: No Diagnosis Primary Impression: Normal physical exam Additional Instructions: Please follow-up with your primary care physician. Return to the ER if condition worsens any other new concerns. Disposition: 01 DISCHARGE HOME Condition: Stable Melly Craig MD Sep 27, 2017 09:55
[2017-09-27 10:14] LABS: BACTERIA, URINE RARE /hpf; BILIRUBIN, URINE NEG (NEG); BLOOD, URINE SMALL (NEG); GLUCOSE,URINE NEG (NEG); KETONE, URINE NEG (NEG); MUCUS URINE FEW /lpf (OCC); NITRITE,URINE NEG (NEG); SQUAMOUS EPITHELIAL CELL URINE 1 /hpf (0-5); URINE COLOR YELLOW (YELLW/STRAW); URINE LEUKOCYTE ESTERASE NEG (NEG)
== END 2017-09-27 10:38 | disposition home or self-care (01) ==
LOC: NEPD 09:34
DX: L29.9 Pruritus, unspecified (principal); M19.90 Unspecified osteoarthritis, unspecified site; I10 Essential (primary) hypertension; K21.9 Gastro-esophageal reflux disease without esophagitis; Z79.899 Other long term (current) drug therapy; Z88.2 Allergy status to sulfonamides; Z88.1 Allergy status to other antibiotic agents; Z86.73 Personal history of transient ischemic attack (TIA), and cerebral infarction without residual deficits; Z87.891 Personal history of nicotine dependence; Z87.440 Personal history of urinary (tract) infections
CPT/HCPCS: 81001; 99283